=== PATIENT | female | born 1955 | race Caucasian/White ===

== ENCOUNTER 2017-06-27 08:25 | Outpatient (RCR) | payer BC ==
[2017-04-03 08:38] VITALS: BP 140/88
[2017-04-10 08:21] LABS: PLATELET COUNT, AUTOMATED 207 K/uL (150-450)
[2017-04-10 15:59] VITALS: BP 152/91
[2017-04-17 08:51] LABS: PLATELET COUNT, AUTOMATED 300 K/uL (150-450)
--- NOTE | 2017-04-17 10:00 | ONC Progress Note - NP.Halsey ---
Patient History Date of Service Apr 17, 2017 Reason For Visit/HPI Patient is seen in the clinic today to discuss treatment with Zometa infusion given every month for her newly diagnosed A light chain multiple myeloma. Patient is started on Velcade and oral chemotherapy given weekly. She is tolerating treatment without difficulty. 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 She has recently followed with her dentist and had 2 teeth extracted approximately 2 weeks ago. She will follow with him in one week for review. She then will follow with Dr. Guadarrama next week. Patient would like to hold off on Zometa infusion until the of the year because of her busy schedule with the holidays. She will discuss this with Dr. Guadarrama. I did visit with her regarding side effects which could include mild flulike symptoms, a very low risk of osteonecrosis of the jaw, watching your kidney function and dose reducing regarding her function, monthly schedule. We also discussed the indication of continuing with calcium and vitamin D supplementation. Patient is planning to have [facility] labs drawn prior to following with her primary care provider and will have a vitamin D level drawn at that time. Psychosocial History Social History The patient is , and she is here with her today. She has two children. She does have a history of smoking, but she quit years ago. She drinks only occasionally. There is no history of illicit drug use. Smoking History: No Smoking Status: Former Smoker Medications and Allergies Active Scripts Dexamethasone 4 Mg Tab (DEXAMETHASONE 4 MG TAB) 4 Mg Tab, 20 MG PO weekly for 1 Day, #30 TAB 3 Refills Prov:VALERIE AYON MD 04/10/17 Acyclovir (ACYCLOVIR) 400 Mg Tablet, 400 MG PO BID, #60 TAB 5 Refills Prov:KINGSLEY WIN SSN/SSBN WEAPONS EQUIPMENT OPERATOR-BC, ONC 03/13/17 Docusate Sodium (COLACE) 100 Mg Capsule, 1 CAP PO BID, #30 CAP 0 Refills TAKE WITH A FULL GLASS OF WATER Prov:JANET CERON MD 03/09/17 Oxycodone Hcl/Acetaminophen (OXYCODONE-ACETAMINOPHEN 5-325) 1 Each Tablet, 1 TAB PO Q4H Y for PAIN, #10 TAB 0 Refills Prov:JANET CERON MD 03/09/17 Reported Medications Diphenhydramine Hcl (BENADRYL) 25 Mg Capsule, 50 MG PO for Sleep, CAPSULE 03/06/17 Ca Carbonate/Mag/Vitamin D3 (CORAL CALCIUM 1,500 MG CAP) 1 Each Capsule, 1 EACH PO QDAY, CAPSULE 05/31/16 [place]-3 Fatty Acids/Fish Oil (OMEGA 3 FISH OIL SOFTGEL) 1 Each Capsule.dr, 1 EACH PO QDAY 01/05/16 Cholecalciferol (Vitamin D3) (VITAMIN D) 1,000 Unit Capsule, 2000 MG PO DAILY, CAPSULE 01/05/16 Multivitamin With Minerals (MULTIPLE VITAMIN) 1 Each Tablet, 1 EACH PO DAILY, TAB 01/05/16 Aspirin (ASPIR 81) 81 Mg Tablet.dr, 81 MG PO QDAY, TAB 01/05/16 Allergies: Coded Allergies: bacitracin (Verified Adverse Reaction, Mild, RASH, 07/04/16) neomycin (Verified Adverse Reaction, Mild, RASH, 07/04/16) polymyxin B (Verified Adverse Reaction, Mild, RASH, 07/04/16) Review of System/Physical Exam Review of Systems All Systems Reviewed/Normal: Yes, Except as Noted Constitutional: Positive for Appetite/Weight Change (weight gain), Positive for Other (patient has a few sleepless nights post taking weekly Decadron and may discuss decreasing the dose with Dr. Guadarrama next week) Hematologic: Positive for Fatigue Physical Exam Vital Signs Temperature: 97.0 Pulse: 94 BP Systolic: 152 BP Diastolic: 91 Respiratory Rate: 16 O2 SAT: 95 O2 Delivery: Height (inches) 65.50 Weight lb: 207 Weight oz: Weight Kg (Constantino): Pain: 0 ECOG Score: 0 General: Stable, Well Developed, Well Nourished Psychiatric: Mood appears normal, Affect appears normal Other Exam was deferred today and time was spent reviewing education regarding Zometa infusion and plan of care. Diagnostic Studies Diagnostic Studies Laboratory Laboratory Tests 04/17/17 08:45 Laboratory Tests 04/17/17 08:45: White Blood Count 5.7, Red Blood Count 4.73, Hemoglobin 14.0, Hematocrit 40.4, Mean Corpuscular Volume 85.6, Mean Corpuscular Hemoglobin 29.5, Mean Corpuscular Hemoglobin Concent 34.5, Red Cell Distribution Width 14.7, Platelet Count 300, Mean Platelet Volume 7.3, Neutrophils (%) (Auto) 49.4, Lymphocytes (% ) (Auto) 34.3, Monocytes (%) (Auto) 13.7, Eosinophils (%) (Auto) 1.7, Basophils (%) (Auto) 0.9, Nucleated RBC Relative Count (auto) 0.0, Neutrophils # (Auto) 2.8, Lymphocytes # (Auto) 1.9, Monocytes # (Auto) 0.8, Eosinophils # (Auto) 0.1 , Basophils # (Auto) 0.1, Nucleated RBC Absolute Count (auto) 0.00, Sodium Level 138, Potassium Level 3.6, Chloride Level 101, Carbon Dioxide Level 27, Blood Urea Nitrogen 10, Creatinine 0.70, Glomerular Filtration Rate Calc > 60.0 , Random Glucose 62, Uric Acid 3.4, Calcium Level 9.8, Phosphorus Level 3.6, Magnesium Level 1.8, Total Bilirubin 0.8, Aspartate Amino Transf (AST/SGOT) 28, Alanine Aminotransferase (ALT/SGPT) 37, Alkaline Phosphatase 119, Lactate Dehydrogenase 512, Total Protein 7.9, Albumin 4.2 Assessment and Plan Assessment & Plan Patient is seen today for her Zometa education prior to starting treatment. Patient would like to hold Zometa until May. She currently is receiving oral Revlimid and weekly Velcade for her newly diagnosed multiple myeloma. Patient is scheduled follow with Dr. Guadarrama next week. Multiple myeloma panel was drawn today and should be available at that time. Patient has been on medication approximately one month. No exam was completed today. Labs were reviewed with patient. I personally spent a total of 15 minutes. Of that 15 minutes was counseling/ coordination of patient's care. See my note above for details. KINGSLEY WIN SSN/SSBN WEAPONS EQUIPMENT OPERATOR-BC, ONC Apr 17, 2017 10:00
[2017-04-17 12:40] VITALS: BP 130/90
[2017-04-24 08:35] VITALS: BP 132/88
[2017-04-24 08:40] LABS: PLATELET COUNT, AUTOMATED 224 K/uL (150-450)
--- NOTE | 2017-04-27 04:35 | ONCOLOGY FOLLOW UP NOTE ---
EVENT DATE: April 24, 2017 CHIEF COMPLAINT/REASON FOR VISIT Ms. Mayers is a pleasant 61-year-old female with multiple myeloma with bone lesions here for follow up. HISTORY OF PRESENT ILLNESS Cristobal returns. She is currently near the end of her first cycle of Velcade/ Revlimid/dex. She has had some issues with subcutaneous dex but would like to continue it. We could switch to IV dex if need be. She has some mild fatigue , but in general no major side effects. Her labs look quite well. She is ready to continue. It is too soon to assess response, and this is more of a toxicity check today. 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 The pain in the left elbow led to an x-ray revealing a lytic lesion in the distal left humerus. A subsequent MRI revealed that this lesion replaced the marrow and went through the cortex. Biopsy in [place] was consistent with a plasma cytoma. She subsequently underwent a PET/CT scan in early 2016. There was no evidence of other metastatic disease. There was a probable benign endochondroma in the right distal femoral metaphysis that is being watched. She subsequently has been diagnosed with relapse and multiple myeloma. Her light chains increased significantly up to 45. This was a rapid change. Her bone marrow had 20% plasma cells in February 2017, prior to initiation of therapy with VRD. PET/CT in the fall of 2016 showed at least five areas concerning for relapse. She has bone predominant disease. SOCIAL HISTORY Patient is and has presented with her . Former smoker with a 20 pack-year history of smoking, quitting approximately 20 years ago. Occasional alcohol use. REVIEW OF SYSTEMS CONSTITUTIONAL: No fevers, chills. Mild fatigue. HEENT: No headache, vision changes. CARDIOVASCULAR: No chest pain, dyspnea on exertion or edema. RESPIRATORY: No shortness of breath, wheeze, cough. GI: No nausea, vomiting, diarrhea, constipatino. : No dysuria or hematuria. MUSCULOSKELETAL: No weakness or joint pain. PSYCHIATRIC: No anxiety or depression. 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 There has been no new pain to suggest ongoing damage. Remainder of 14-point review of systems otherwise negative. PHYSICAL EXAMINATION VITAL SIGNS: Blood pressure 152/91, pulse 74, respiratory rate 16, temperature 97.0 Fahrenheit. Oxygen saturation 95% on room air. Weight 95.9 kg. Pain 0/ 10. Fatigue 3/10. GENERAL: Stable condition, resting comfortably in the chair. HEENT: Normocephalic, atraumatic. CARDIOVASCULAR: Regular rate an rhythm. LUNGS: Clear. ABDOMEN: Soft. EXTREMITIES: No clubbing, cyanosis or edema. Remainder of physical exam unremarkable. IMPRESSION/PLAN Cristobal is a very pleasant female with the followin. Multiple myeloma with bone lesions. She is tolerating VRD well. We had an extensive time today discussing side effects, many questions, as well as discussion of the disease in great detail today, over 25 minutes spent in counseling and coordination of care, answered all of her questions. She is ready to proceed. Will see her with the next cycle as well. Billing: Return visit level 5. Total time 45 minutes, counseling time 25 minutes. IRIS
--- NOTE | 2017-04-27 15:34 | Oncology Note ---
Phone call received from Fabi at [facility] at [phone]. She reports that patient is doing well after having several teeth extracted and is released from their clinic. Patient is okay to start IV Zometa as part of her treatment plan for her multiple myeloma. KINGSLEY WIN MULTIMEDIA ENGINEER-BC, ONC Apr 27, 2017 15:34
--- NOTE | 2017-04-27 19:44 | [facility] ONCOLOGY NOTE ---
DATE OF SERVICE: April 24, 2017 CHIEF COMPLAINT/REASON FOR VISIT Ms. Mayers is a pleasant 61-year-old female with multiple myeloma, here during cycle two of Velcade, Revlimid, dexamethasone. HISTORY OF PRESENT ILLNESS Ms. Mayers returns. She is tolerating her first cycles of VRD very well. She has already had an over 50% improvement in her kappa light chains, which is significantly ahead of schedule. Overall she is tolerating therapy well as well. No significant neuropathy. She does have some discoloration of the skin where she gets the Velcade injections, and we discussed switching to IV. She would like to continue it subcu at this time. Otherwise she feels well. 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 The pain in the left elbow led to an x-ray revealing a lytic lesion in the distal left humerus. A subsequent MRI revealed that this lesion replaced the marrow and went through the cortex. Biopsy in [place] was consistent with a plasma cytoma. She subsequently underwent a PET/CT scan in early 2016. There was no evidence of other metastatic disease. There was a probable benign endochondroma in the right distal femoral metaphysis that is being watched. She subsequently has been diagnosed with relapse and multiple myeloma. Her light chains increased significantly up to 45. This was a rapid change. Her bone marrow had 20% plasma cells in February 2017, prior to initiation of therapy with VRD. PET/CT in the fall of 2016 showed at least five areas concerning for relapse. She has bone predominant disease. PAST MEDICAL HISTORY 1. Multiple myeloma. 2. Status post left humerus ORIF. 3. Status post hysterectomy. 4. Status post back surgery. SOCIAL HISTORY Patient is and has presented with her . Former smoker with a 20 pack-year history of smoking, quitting approximately 20 years ago. Occasional alcohol use. FAMILY HISTORY Remarkable for a stroke in the brother, but no cancer in the family. REVIEW OF SYSTEMS CONSTITUTIONAL: No fevers, chills. HEENT: No headache, vision changes CARDIOVASCULAR: No chest pain, dyspnea on exertion or edema. RESPIRATORY: No shortness of breath, wheeze, cough. GASTROINTESTINAL: No nausea, vomiting, diarrhea or constipation. GENITOURINARY: No dysuria or hematuria. NEUROLOGIC: She does have some numbness at times in the left leg, believed to be related to sciatica. Greatly preceded her diagnosis, no worsening with treatment. SKIN: No concerning lesions or rashes. She does get some hyperpigmentation in the areas where she gets the Velcade shots, but this is mild and tolerable to the patient. PSYCHIATRIC: No anxiety or depression. HEMATOLOGIC: No bleeding, bruising. IMMUNOLOGIC: No issues with infection. The remainder of the 14-point review of systems is otherwise negative. PHYSICAL EXAMINATION Reviewed in the Chemotherapy Unit. ECOG performance status of 0-1 on treatment. HEENT: Normocephalic, atraumatic. CARDIOVASCULAR: Regular rate and rhythm. LUNGS: Clear. EXTREMITIES: No clubbing, cyanosis or edema. SKIN: The patient does have some round, flat patches from where she was getting the injections. These may fade with time, but may not. The remainder of the physical exam is otherwise unremarkable. LABS Reviewed. She is clearly responding with already having a 50% improvement in her light chains with VRD. IMPRESSION AND PLAN Ms. Mayers is a very pleasant 61-year-old female with multiple myeloma already with partial response to Velcade, Revlimid and dexamethasone. We reviewed her treatment plan in great detail again today. She is tolerating it well with no major side effects. Ready to move forward with therapy. She is currently on cycle two, will see one of our providers every cycle. I answered all of her questions today. Billing: Return visit level 4. Total time 30 minutes, counseling time 20. MTDD
[2017-05-01 08:18] VITALS: BP 155/85
[2017-05-08 08:27] VITALS: BP 125/88
[2017-05-08 08:28] LABS: PLATELET COUNT, AUTOMATED 227 K/uL (150-450)
--- NOTE | 2017-05-14 09:58 | ONCOLOGY FOLLOW UP NOTE ---
EVENT DATE: April 07, 2017 CHIEF COMPLAINT/REASON FOR VISIT Ms. Mayers is a pleasant 61-year-old female with multiple myeloma with bone lesions here for followup. HISTORY OF PRESENT ILLNESS Cristobal returns. She is currently near the end of her first cycle of Velcade, Revlimid, dex. She has had some issues with subcutaneous dex, but would like to continue it. We could switch to IV dex if need be. She has some mild fatigue, but in general no major side effects. Her labs look quite well. She is ready to continue. It is too soon to assess response, and this is more of a toxicity check today. 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 The pain in the left elbow led to an x-ray revealing a lytic lesion in the distal left humerus. A subsequent MRI revealed that this lesion replaced the marrow and went through the cortex. Biopsy in [place] was consistent with a plasma cytoma. She subsequently underwent a PET/CT scan in early 2016. There was no evidence of other metastatic disease. There was a probable benign endochondroma in the right distal femoral metaphysis that is being watched. She subsequently has been diagnosed with relapse and multiple myeloma. Her light chains increased significantly up to 45. This was a rapid change. Her bone marrow had 20% plasma cells in February 2017, prior to initiation of therapy with VRD. PET/CT in the fall of 2016 showed at least five areas concerning for relapse. She has bone predominant disease. PAST MEDICAL HISTORY 1. Multiple myeloma. 2. Status post left humerus ORIF. 3. Status post hysterectomy. 4. Status post back surgery. SOCIAL HISTORY Patient is and has presented with her . Former smoker with a 20 pack-year history of smoking, quitting approximately 20 years ago. Occasional alcohol use. REVIEW OF SYSTEMS CONSTITUTIONAL: No fevers, chills. Mild fatigue. HEENT: No headache or vision changes. CARDIOVASCULAR: No chest pain, dyspnea on exertion or edema. RESPIRATORY: No shortness of breath, wheeze, cough. GASTROINTESTINAL: No nausea, vomiting, diarrhea or constipation. GENITOURINARY: No dysuria or hematuria. MUSCULOSKELETAL: No weakness or joint pain. PSYCHIATRIC: No anxiety or depression. MUSCULOSKELETAL: Some pain from the positive cytomas, but no new pain to suggest ongoing damage. The remainder of the 14-point review of systems is otherwise negative. PHYSICAL EXAMINATION VITAL SIGNS: Blood pressure 152/91, pulse 74, respiratory rate 16, temperature 97.0 Fahrenheit. Oxygen saturation 95% on room air. Weight 95.9 kg. Pain 0/10 , fatigue 3/10. GENERAL: In stable condition, resting comfortably in the chair. HEENT: Normocephalic, atraumatic. CARDIOVASCULAR: Regular rate and rhythm. LUNGS: Clear. ABDOMEN: Soft. EXTREMITIES: No clubbing, cyanosis or edema. The remainder of the physical exam is unremarkable. IMPRESSION AND PLAN Cristobal is a very pleasant female with the following: Multiple myeloma with bone lesions. She is tolerating VRD well. We had an extensive time today discussing side effects. Many questions, as well as discussion of the disease in great detail today. Over 25 minutes spent in counseling and coordination of care. I answered all of her questions. She is ready to proceed. We will see her with the next cycle as well. Billing: Return visit level 5. Total time 45 minutes, counseling time 25. MTDD
[2017-05-16 08:30] VITALS: BP 134/66
[2017-05-16 08:43] LABS: PLATELET COUNT, AUTOMATED 286 K/uL (150-450)
[2017-05-23 08:16] VITALS: BP 145/75
[2017-05-23 08:40] LABS: PLATELET COUNT, AUTOMATED 226 K/uL (150-450)
[2017-05-23] MEDS: NS(*) 0.9% 100 ML BAG 100 ML IVPB PRN (09:32)
[2017-05-30 08:39] VITALS: BP 142/74
[2017-06-06 08:18] VITALS: BP 136/78
[2017-06-06 08:30] LABS: PLATELET COUNT, AUTOMATED 209 K/uL (150-450)
[2017-06-12 09:01] VITALS: BP 143/84
[2017-06-13 08:44] VITALS: BP 130/84
[2017-06-13 08:48] LABS: PLATELET COUNT, AUTOMATED 301 K/uL (150-450)
--- NOTE | 2017-06-13 17:02 | ONCOLOGY FOLLOW UP NOTE ---
EVENT DATE: June 13, 2017 CHIEF COMPLAINT/REASON FOR VISIT Mrs. Mayers is a pleasant 61-year-old female with multiple myeloma, here prior to cycle four of Velcade, Revlimid and dexamethasone. HISTORY OF PRESENT ILLNESS Mrs. Mayers returns. She tolerating VRD very well. She has had nearly a very good partial response after two full cycles of therapy based on her early cycle labs. We have labs pending again tomorrow on cycle four day one. No significant neuropathy at all. She does get some discoloration of the skin with the Velcade subcu injection so we switched to IV. However, after further consideration with neuropathy she chose to continue it in the subcutaneous route. Otherwise she feels very well. We had an extensive meeting today to discuss autologous stem cell transplant and other considerations. I do recommend transplant. Other options include maintenance therapy versus active surveillance. I described the data showing benefit with continued therapy including transplant. 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 The pain in the left elbow led to an x-ray revealing this solitary lytic lesion in the distal left humerus. Biopsy in [place] was consistent with a plasma cytoma and this was treated. She subsequently underwent a PET/CT in early 2016. There was no evidence of metastatic disease at that time. There was a probable benign finding in the right femur that was watched. Subsequently she was diagnosed with relapse and her light chains increased up to 45. She had 20% plasma cells in the bone marrow and we initiated up front therapy with VRD. PET scan at the time of this diagnosis and fall 2016 showed five areas concerning for relapse. She has bone prominent disease with no other major CRAB symptoms. Treated with VRD. She had greater than a partial response after two cycles, which was our initial goal. PAST MEDICAL HISTORY 1. Multiple myeloma. 2. Status post left humerus ORIF. 3. Status post hysterectomy. 4. Status post back surgery. SOCIAL HISTORY Patient is and has presented with her . Former smoker with a 20- pack year history of smoking, quitting approximately 20 years ago. Occasional alcohol use. FAMILY HISTORY Remarkable for a stroke in her brother, but no cancers in the family. REVIEW OF SYSTEMS CONSTITUTIONAL: No fevers, chills. HEENT: No headache or vision changes. CARDIOVASCULAR: No chest pain, dyspnea on exertion or edema. RESPIRATORY: No shortness of breath, wheeze, cough. GASTROINTESTINAL: No nausea, vomiting. GENITOURINARY: No dysuria or hematuria. MUSCULOSKELETAL: No weakness or joint pain. PSYCHIATRIC: No anxiety or depression. NEUROLOGIC: No concerning numbness. She does have a prior history of sciatica in her left leg. This is unchanged. HEMATOLOGIC: No bruising or bleeding. IMMUNOLOGIC: No issues with infection. The remainder of the 14-point review of systems is otherwise negative. PHYSICAL EXAMINATION VITAL SIGNS: Blood pressure 143/84, pulse 85, respiratory rate 16, temperature 97.2 Fahrenheit, oxygen saturation 90% on room air. Weight 94.5 kg. Pain 0/10 , fatigue 4/10. GENERAL: In stable condition, resting comfortably in the chair. HEENT: Normocephalic, atraumatic. CARDIOVASCULAR: Regular rate and rhythm. LUNGS: Clear to auscultation bilaterally. ABDOMEN: Soft, nontender. EXTREMITIES: No clubbing, cyanosis or edema. Remainder of full physical exam deferred today to amount of time spent in counseling and coordination of care. IMPRESSION AND PLAN Mrs. Mayers is a pleasant 61-year-old female with multiple myeloma already with a partial response after two cycles of Velcade, Revlimid and dexamethasone. We discussed her next steps in great detail today. I would recommend consolidation with autologous stem cell transplant after maximum response. I would like her to meet with one of my bone marrow transplant colleagues to discuss this in further detail. We discussed alternatives including maintenance therapy versus active surveillance and the pros and cons of each. After discussion they would like to proceed with autologous stem cell transplant, which I think is the best plan. I answered all of their many questions today, will continue to see with every cycle. Billing: Return visit level 5. Total time 45 minutes, counseling time 30. High risk, high complexity. MTDD
[2017-06-20 08:30] VITALS: BP 131/80
[2017-06-20] MEDS: NS(*) 0.9% 100 ML BAG 100 ML IVPB PRN (09:44)
[~2017-06-27] VITALS: Ht 166.4 cm; Wt 95.2 kg
[~2017-06-27 08:25] MED LIST: ACYC-50 PO; ASPI-1471 PO; BORTEZOMIB 3.5 MG INJS SC ONE; CA C PO; CALC500T6 PO; CHOL100058 PO; DEX4 PO; DEXTROSE 5%(*) 100 ML BAG 100 ML IVPB PRN; DIPH-740 PO; DOCU-416 PO; HYDR-317 PO; HYDR-4309 PO; LIDOCAINE/SOD BICARB 8.4% SYR ID PRN; MAGN200T6 PO; MULT-1335 PO; OMEG-36 PO; OXYC-373 PO; OXYC-865 PO; PNEUMOCOC VAC POLY 25MCG/0.5ML IM ONLY ONE; TRAM-627 PO; ZOLEDRONIC ACID 4 MG/5 ML VIAL 4 MG in NS(*) 0.9% 100 ML BAG 100 ML IVPB ONE
[2017-06-27] MEDS ORDERED: BORTEZOMIB 3.5 MG INJS SC ONE (09:40)
--- NOTE | 2017-06-27 12:41 | RADIOLOGY IMAGING REPORT ---
FAC[place] [facility] [place]IENT NAME: Cristobal Mayers : 1955 MR: [id number] V: [id number] EXAM DATE: ORDERING PHYSICIAN: KINGSLEY WIN TECHNOLOGIST: Location: [facility] Patient: Cristobal Mayers : 1955 Visit/Account:[id number] Date of Sevice: 06/27/2017 EXAMINATION: Unilateral lower extremity deep vein duplex Doppler ultrasound HISTORY: Pain with palpable 1 cm nodule behind the right knee. COMPARISON: 07/25/2016. FINDINGS: Grayscale compression, duplex and color Doppler interrogation of the right lower extremity deep veins from common femoral vein to proximal calf was performed. The greater saphenous vein in the ipsilater al proximal thigh was evaluated using similar technique. Right lower extremity: Common femoral vein: Negative. Femoral vein: Negative. Deep femoral vein: Negative. Popliteal vein: Negative. Visualized deep calf veins: Negative. Greater saphenous vein in the proximal thigh: Negative. Popliteal fossa: Popliteal cyst measuring 7 x 1.2 x 4.1 cm compared with 2.8 x 0.8 x 1.9 cm previousl y Waveforms: Normal respiratory phasicity. IMPRESSION: No evidence of deep venous thrombosis of the right lower extremity. Madsen cyst, measuring 7 x 1.2 x 4.1 cm, increased in size since previous exam. Report Dictated By: Yang Wiley MD at 06/27/2017 12:29 PM Report E-Signed By: Yang Wiley MD at 06/27/2017 12:36 PM WSN:[id number]
== END 2017-06-29 ==
LOC: ONC 08:25
PROVIDERS: ATTEND Internal Medicine Hematology
DX: C90.00 Multiple myeloma not having achieved remission (principal); Z87.891 Personal history of nicotine dependence; Z79.899 Other long term (current) drug therapy; R53.83 Other fatigue; Z79.82 Long term (current) use of aspirin; Z23 Encounter for immunization
CPT/HCPCS: 36415; 82232; 83615; 83735; 83883; 84100; 84550; 85025; 85027; 86334; 90471; 90732; 93971; 96365; 96401; 99212; J3489; J7050; J9041; 82040; 82247; 82310; 82374; 82435; 82565; 82785; 82947; 84075; 84132; 84155; 84295; 84450; 84460; 84520

== ENCOUNTER 2017-08-14 08:02 | Outpatient (RCR) | payer BC ==
[2016-08-23 09:21] VITALS: BP 140/78
--- NOTE | 2017-07-21 10:42 | RADIOLOGY IMAGING REPORT ---
[place] [facility] [place] NAME: Cristobal Mayers : 1955 MR: [id number] V: [id number] EXAM DATE: ORDERING PHYSICIAN: RADHIKA LLANOS TECHNOLOGIST: Location: [facility] [place] Patient: Cristobal Mayers : 1955 Visit/Account:[id number] Date of Sevice: 07/20/2017 CT CHEST W/O CONTRAST History: Multiple myeloma TECHNIQUE: Contiguous axial images were performed through the chest to the level of the adrenal gla nds. No IV contrast was administered. Coronal and sagittal reformatting was also performed. Dose Lowe ring Technique One of the following dose optimization techniques was utilized in the performance of this exam: Autom ated exposure control; adjustment of the mA and/or kV according to the patient's size; or use of an i terative reconstruction technique. Specific details can be referenced in the facility's radiology C T exam operational policy. COMPARISON STUDIES: PET/CT February 21, 2017. Lungs / Pleura: negative. Mediastinum/nodes: negative. Heart and vessels: negative. Musculoskeletal / Body wall: There are extensive multilevel spondylotic changes in the cervical spi ne. There is a small lucency with some sclerotic border involving the inferior right side of the C5 vertebral body similar to the prior study.. There is additional lucency along the anterior left side of the T1 vertebral body not definitively seen on the prior examination. There is a large lucency w ith a sclerotic border and destruction of the posterior wall of the T5 vertebral body present previou sly. There is an additional lucent lesion with a sclerotic border involving the left side of the T8 vertebral body which is increased in size when compared to the prior study. There is a lesion of mix ed density along the left side of the L2 vertebral body that was present previously. There is a lyti c lesion along the anterior aspect of the left 10th rib that was present on the prior study. There i s a lucent lesion with adjacent callus along the posterior aspect of the left eighth rib posteriorly likely related to a pathologic fracture. There also appear to be several other lucent lesions along the lateral aspect of the left eighth rib also present previously there is a lytic lesion involving t he head neck and visualized proximal shaft of the left humerus present previously. Incompletely imag ed are postsurgical changes in the distal left humerus Upper abdomen: Incompletely imaged is a 2.7 cm cyst posterior right lobe the liver. Also incomplet jacoby imaged is a cyst upper pole the right kidney IMPRESSION: There are multiple lucent lesions seen throughout the visualized bones as detailed above. Most of th peggy appear some are to the prior PET/CT from February 21, 2017. The lesion was quite borders left-side d T8 vertebral body has increased in size. Report Dictated By: Aiyana Oshea MD at 07/21/2017 10:15 AM Report E-Signed By: Aiyana Oshea MD at 07/21/2017 10:38 AM WSN:[id number]
[~2017-08-14 08:02] MED LIST changes: -BORTEZOMIB 3.5 MG INJS SC ONE; -DEXTROSE 5%(*) 100 ML BAG 100 ML IVPB PRN; +LENA25CA4 PO; -LIDOCAINE/SOD BICARB 8.4% SYR ID PRN; -PNEUMOCOC VAC POLY 25MCG/0.5ML IM ONLY ONE; -ZOLEDRONIC ACID 4 MG/5 ML VIAL 4 MG in NS(*) 0.9% 100 ML BAG 100 ML IVPB ONE; +ZOLP-360 PO; +[UNRECOGNIZED DRUG - CODE] IVP
[2017-09-12] MEDS ORDERED: DARA100V IV (15:50)
[2017-09-12] MEDS ORDERED: POMA4CAP PO (15:50)
[2017-09-26] MEDS ORDERED: DEX4 PO (20:09)
[2017-09-26] MEDS ORDERED: DIPH-740 PO (20:12)
== END 2017-10-17 ==
LOC: RAON 08:02
PROVIDERS: ATTEND Radiology Radiation Oncology
DX: Z51.0 Encounter for antineoplastic radiation therapy (principal); C90.30 Solitary plasmacytoma not having achieved remission; Z79.82 Long term (current) use of aspirin; Z79.899 Other long term (current) drug therapy; Z87.891 Personal history of nicotine dependence
CPT/HCPCS: 71250; 77280; 77290; 77295; 77300; 77334; 77336; 77412; 77417; 99212

== ENCOUNTER → 2017-09-12 | Outpatient (CLI) | payer BC ==
[~2017-09-12] MED LIST changes: +DARA100V IV; +POMA4CAP PO
== END ==
LOC: SPU 09:43
PROVIDERS: ATTEND Family Medicine
DX: E05.90 Thyrotoxicosis, unspecified without thyrotoxic crisis or storm (principal)
CPT/HCPCS: 36415; 84439; 84481; 86376; 86800

== ENCOUNTER → 2017-09-14 | Outpatient (CLI) | payer BC ==
--- NOTE | 2017-09-14 16:23 | RADIOLOGY IMAGING REPORT ---
FACILITY: [facility] - [place] PATIENT NAME: Cristobal Mayers : 1955 MR: [id number] V: [id number] EXAM DATE: ORDERING PHYSICIAN: RAJI FRAZIER TECHNOLOGIST: Location: [facility] [place] Patient: Cristobal Mayers : 1955 Visit/Account:[id number] Date of Sevice: 09/14/2017 Thyroid ultrasound. HISTORY: Hyperthyroidism, multiple myeloma. COMPARISON: None. The right thyroid lobe measures 5.2 cm in length. No right thyroid nodules are identified. The thyroid isthmus measures 3 mm in thickness. The left thyroid lobe measures 4.9 cm in length. A 7 mm slightly heterogeneous nodule is present in t he midportion of the left thyroid lobe. A 1.3 cm oval-shaped structure consistent with a lymph node i s present along the medial aspect of the lower pole of left thyroid lobe. IMPRESSION: 7 mm left thyroid nodule. Otherwise negative thyroid gland. Report Dictated By: Rolan Youngblood MD at 09/14/2017 4:18 PM Report E-Signed By: Rolan Youngblood MD at 09/14/2017 4:20 PM WSN:[id number]
== END ==
LOC: US 00:58
PROVIDERS: ATTEND Family Medicine
DX: E05.20 Thyrotoxicosis with toxic multinodular goiter without thyrotoxic crisis or storm (principal)
CPT/HCPCS: 76536

== ENCOUNTER 2017-09-25 09:22 | Outpatient (RCR) | payer BC ==
[2017-07-03 09:13] VITALS: BP 143/84
[2017-07-03 10:20] LABS: PLATELET COUNT, AUTOMATED 210 K/uL (150-450)
--- NOTE | 2017-07-04 18:53 | ONCOLOGY FOLLOW UP NOTE ---
EVENT DATE: July 03, 2017 CHIEF COMPLAINT/REASON FOR VISIT Mrs. Mayers is a very pleasant 61-year-old female with multiple myeloma, here during cycle four of Velcade, Revlimid and dexamethasone. HISTORY OF PRESENT ILLNESS Mrs. Mayers returns. She is tolerating VRD extremely well. She has a very good partial response at this point and is reaching a plateau. No significant neuropathy at all. She had difficulties with the subcutaneous Velcade and we considered switching to IV. However, she would like to continue with the subcutaneous. She prefers to get it in the arm due to discoloration on her abdomen. She recently met with Dr. Jorge Powell at the [facility], and we both recommend autologous stem cell transplant. She thinks for timing purposes she would like to get the transplant after she returns from a wedding in October of 2017. As a result, we weill continue her full treatment with VRD until August to allow for a month break before stem cell harvest in September and transplant in October. I answered all of her many questions today, over 45 minutes. 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 This led to an x-ray revealing a solitary lytic lesion in the distal left humerus. Biopsy was done in [place] and was treated with radiation. She subsequently underwent a PET/CT in early 2016, showing no evidence of metastatic disease at the time. Her light chains increased up to 45 and she was subsequently discharged with relapse. She had 20% plasma cells in the bone marrow and we initiated therapy with VRD. There were five areas concerning for relapse in a PET scan in the fall of 2016. She has predominant bone disease with no other major CRAB symptoms. We started Zometa monthly given her bone prominent disease, and she has had two doses thus far. We are now able to switch to every three months. She had greater than a partial response after two cycles, our initial goal. PAST MEDICAL HISTORY 1. Multiple myeloma. 2. Status post left humerus ORIF. 3. Status post hysterectomy. 4. Status post back surgery. SOCIAL HISTORY Patient is and has presented with her and daughter. Former smoker with a 20 pack-year history of smoking, quitting 20 years ago. Occasional alcohol use. FAMILY HISTORY Remarkable for a stroke in her brother, but no cancers in the family. REVIEW OF SYSTEMS CONSTITUTIONAL: No fevers, chills, significant weight change. HEENT: No headache or vision changes. CARDIOVASCULAR: No chest pain, dyspnea on exertion or edema. RESPIRATORY: No shortness of breath, wheeze, cough. GASTROINTESTINAL: No nausea, vomiting. GENITOURINARY: No dysuria or hematuria. MUSCULOSKELETAL: No weakness, joint pain, bone pain. PSYCHIATRIC: No anxiety or depression. NEUROLOGIC: No concerning numbness. HEMATOLOGIC: No bruising or bleeding. IMMUNOLOGIC: No issues of infection. The remainder of the 14-point review of systems is otherwise negative. PHYSICAL EXAMINATION VITAL SIGNS: Blood pressure 143/84, pulse 80, respiratory rate 16, temperature 97.1 degrees Fahrenheit, oxygen saturation 93% on room air. Weight 94.9 kg and stable. Pain 0/10, fatigue 0/10. GENERAL: In stable condition, resting comfortably in the chair. HEENT: Normocephalic, atraumatic. CARDIOVASCULAR: Regular rate and rhythm. LUNGS: Clear. ABDOMEN: Soft, nontender. EXTREMITIES: No clubbing, cyanosis or edema. Remainder of full physical exam deferred today to amount of time spent in counseling and coordination of care. IMPRESSION AND PLAN Mrs. Mayers is a very pleasant 61-year-old female with the following: Multiple myeloma without significant high risk features. She had a partial response after two cycles with VRD and a very good partial response after three cycles. We recommend consolidation with autologous stem cell transplant after her maximum response. She is nearing that, but would like to get the transplant done in October after a family wedding. This is reasonable. We will continue full dose therapy until August before taking a break to allow stem cell collection in September, and the transplant hopefully in October. I answered all of their many questions today after the consultation with Dr. Patel. Billing: Return visit level 5. Total time 50minutes, counseling time 55. High risk, high complexity. MTDD
[2017-07-11 08:34] VITALS: BP 151/83
[2017-07-11 08:57] LABS: PLATELET COUNT, AUTOMATED 256 K/uL (150-450)
[2017-07-18 08:47] VITALS: BP 136/71
[2017-07-18] MEDS: LIDOCAINE/SOD BICARB 8.4% SYR ID PRN (09:36)
[2017-07-18] MEDS: NS(*) 0.9% 100 ML BAG 100 ML IVPB PRN (09:37)
--- NOTE | 2017-07-18 10:07 | ONC Progress Note - NP.Halsey ---
Patient History Date of Service Jul 18, 2017 Reason For Visit/HPI Patient is seen in the clinic today to discuss her insomnia. She was seen last week by Dr. Ayon and is tolerating V RD extremely well. He denies any neuropathy. She is reporting that she has discomfort in her right shoulder and questions if she can take ibuprofen because Tylenol does not help. She has discussed ibuprofen with her provider in [place] and was recommended to not use it. She does have Ultram at home and has not tried it. She reports that previously she was taken Benadryl 100 mg at night for sleep. She has no trouble going to sleep but frequently wakes up 2 hours later and is unable to go back to sleep. She will get up and sit in front of the TV and then follow sleep after a amount of time. She does feel that frequently she is thinking about activities that she needs to complete and feels like that is the cause of her insomnia. She does have increased insomnia on the day that she takes her steroid therapy and usually the following day. This does not happen every night but at least 2-3 nights in a week. It increases anytime she is traveling. She is planning on a trip to go see her grandson. She believes that she has tried Ambien many years ago and had good relief taking it only as needed. Like to try Ambien again. Problem List (1) INSOMNIA DUE TO MEDICAL CONDITION Oncology History Patient was initially diagnosed with solitary plasmacytoma with pain in the left elbow. This led to an x-ray revealing a solitary lytic lesion in the distal left humerus. Biopsy was done in [place] and was treated with radiation. She subsequently underwent a PET/CT in early 2016, showing no evidence of metastatic disease at the time. Her light chains increased up to 45 and she was subsequently discharged with relapse. She had 20% plasma cells in the bone marrow and we initiated therapy with VRD. There were five areas concerning for relapse in a PET scan in the fall of 2016. She has predominant bone disease with no other major CRAB symptoms. She started Zometa monthly x 2 months and will now switch to every three months. She is on Vitamin D daily. She will complete a transplant some time in November 2017. Psychosocial History Social History Patient is and has presented with her and daughter. Former smoker with a 20 pack-year history of smoking, quitting 20 years ago. Occasional alcohol use. Smoking History: No Smoking Status: Former Smoker Medications and Allergies Active Scripts Zolpidem Tartrate (ZOLPIDEM TARTRATE) 5 Mg Tablet, 1 TAB PO QHS, #30 TAB 1 Refill Prov:KINGSLEY WIN TECHNICAL MAINTENANCE SPECIALIST-BC, ONC 07/18/17 Dexamethasone 4 Mg Tab (DEXAMETHASONE 4 MG TAB) 4 Mg Tab, 20 MG PO weekly for 1 Day, #30 TAB 3 Refills Prov:VALERIE AYON MD 04/10/17 Acyclovir (ACYCLOVIR) 400 Mg Tablet, 400 MG PO BID, #60 TAB 5 Refills Prov:KINGSLEY WIN TECHNICAL MAINTENANCE SPECIALIST-BC, ONC 03/13/17 Docusate Sodium (COLACE) 100 Mg Capsule, 1 CAP PO BID, #30 CAP 0 Refills TAKE WITH A FULL GLASS OF WATER Prov:JANET CERON MD 03/09/17 Oxycodone Hcl/Acetaminophen (OXYCODONE-ACETAMINOPHEN 5-325) 1 Each Tablet, 1 TAB PO Q4H Y for PAIN, #10 TAB 0 Refills Prov:JANET CERON MD 03/09/17 Reported Medications Diphenhydramine Hcl (BENADRYL) 25 Mg Capsule, 50 MG PO for Sleep, CAPSULE 03/06/17 Ca Carbonate/Mag/Vitamin D3 (CORAL CALCIUM 1,500 MG CAP) 1 Each Capsule, 1 EACH PO QDAY, CAPSULE 05/31/16 [place]-3 Fatty Acids/Fish Oil (OMEGA 3 FISH OIL SOFTGEL) 1 Each Capsule.dr, 1 EACH PO QDAY 01/05/16 Cholecalciferol (Vitamin D3) (VITAMIN D) 1,000 Unit Capsule, 2000 MG PO DAILY, CAPSULE 01/05/16 Multivitamin With Minerals (MULTIPLE VITAMIN) 1 Each Tablet, 1 EACH PO DAILY, TAB 01/05/16 Aspirin (ASPIR 81) 81 Mg Tablet.dr, 81 MG PO QDAY, TAB 01/05/16 Allergies: Coded Allergies: bacitracin (Verified Adverse Reaction, Mild, RASH, 07/04/16) neomycin (Verified Adverse Reaction, Mild, RASH, 07/04/16) polymyxin B (Verified Adverse Reaction, Mild, RASH, 07/04/16) Review of System/Physical Exam Review of Systems All Systems Reviewed/Normal: Yes, Except as Noted Musculoskeletal: Positive for Muscle Pain, Positive for Bone Pain (noted in the right scapular area.) Psychiatric: Other (noted for insomnia.) Physical Exam Vital Signs Temperature: 99.5 Pulse: 65 BP Systolic: 136 BP Diastolic: 71 Respiratory Rate: 16 O2 SAT: 95 O2 Delivery: Height (inches) 65.50 Weight lb: 207 Weight oz: Weight Kg (Constantino): Pain: 0 ECOG Score: 0 General: Stable, Well Developed, Well Nourished, Not In Acute Distress, Other ( patient remains active and is doing water aerobics 3 times a week in the morning ) Extremities: Other (pain with palpation in the right scapular area. We'll look at CT scan with Dr. Snider.) Psychiatric: Mood appears normal, Affect appears normal Diagnostic Studies Diagnostic Studies Laboratory Laboratory Tests 07/18/17 08:43 Laboratory Tests 07/11/17 08:45: Red Blood Count 4.43, Mean Corpuscular Volume 89.0, Mean Corpuscular Hemoglobin 30.0, Mean Corpuscular Hemoglobin Concent 33.8, Red Cell Distribution Width 15.1 , Mean Platelet Volume 7.3, Monocytes (%) (Auto) 13.5, Eosinophils (%) (Auto) 2.3, Basophils (%) (Auto) 1.2, Nucleated RBC Relative Count (auto) 0.1, Monocytes # (Auto) 0.7, Eosinophils # (Auto) 0.1, Basophils # (Auto) 0.1, Nucleated RBC Absolute Count (auto) 0.00, Peripheral Blood Smear No, Uric Acid 2.9, Lactate Dehydrogenase 469, Protein Electrophoresis (T) 6.50, Albumin % (PEP ) 4.06, Vxlfn-2-Bdhzndqbm 0.30, Lqkng-5-Yemlycyzc 0.70, Beta Globulins 0.79, Szbh-0-Ylrnnnkognjwp 1.6, Gamma Globulins (%) 0.66, Immunoglobulin G 631, Immunoglobulin A 75, Immunoglobulin M 64, ROHITH & Serum PEP Interpretation See note, Serum Immunofixation Rohith done, Free Old [place] Light Chains, Quant 13.50, Free Lambda Light Chains, Quant 0.94, Free [place]/Lambda Light Chain Ratio 14.36 07/18/17 08:43: White Blood Count 3.6, Hemoglobin 13.5, Hematocrit 40.4, Platelet Count 221, Neutrophils (%) (Auto) 49.7, Lymphocytes (%) (Auto) 34.7, Neutrophils # (Auto) 1.8, Lymphocytes # (Auto) 1.3, Sodium Level 136, Potassium Level 3.7, Chloride Level 99, Carbon Dioxide Level 28, Blood Urea Nitrogen 12, Creatinine 0.70, Glomerular Filtration Rate Calc > 60.0, Random Glucose 82, Calcium Level 9.1, Total Bilirubin 0.5, Aspartate Amino Transf (AST/SGOT) 27, Alanine Aminotransferase (ALT/SGPT) 41, Alkaline Phosphatase 67, Total Protein 7.0, Albumin 4.0 Assessment and Plan Assessment & Plan Mrs. Mayers is a very pleasant 61-year-old female with the following: Multiple myeloma without significant high risk features. She had a partial response after two cycles with VRD and a very good partial response after three cycles. Dr. Guadarrama has recommended consolidation with autologous stem cell transplant after her maximum response. She is nearing that, but would like to get the transplant done in October after a family wedding in her birthday. This is reasonable. We will continue full dose therapy until August before taking a break to allow stem cell collection in September, and the transplant hopefully in October. History of insomnia. Patient reports that she is having more difficulty staying asleep several nights in a week. She has been taking Benadryl 100 mg at night and feels that this is no longer helping. She previously has tried Ambien and would like to try to again and will take it only as needed. Safety features were discussed with patient and she verbalized understanding. Pain in the right scapula. I will look at previous diagnostic studies with Dr. Snider today and reviewed to see if patient would benefit from further radiation therapy. Patient has been taking ibuprofen which was discouraged by her provider in [place]. She feels that Tylenol does not help. She does have Ultram at home and will try that. I personally spent a total of 20 minutes. Of that 20 minutes was counseling/ coordination of patient's care. See my note above for details. KINGSLEY WIN TECHNICAL MAINTENANCE SPECIALIST-BC, ONC Jul 18, 2017 10:07
[2017-07-25 08:32] VITALS: BP 141/77
[2017-08-01 09:42] LABS: PLATELET COUNT, AUTOMATED 212 K/uL (150-450)
[2017-08-07 09:21] VITALS: BP 144/89
[2017-08-08 08:44] VITALS: BP 128/81
[2017-08-08 08:48] LABS: PLATELET COUNT, AUTOMATED 262 K/uL (150-450)
--- NOTE | 2017-08-08 16:54 | ONCOLOGY FOLLOW UP NOTE ---
EVENT DATE: August 07, 2017 CHIEF COMPLAINT/REASON FOR VISIT Ms. Mayers is a very pleasant 61-year-old female with multiple myeloma, here immediately prior to cycle five of Velcade, Revlimid and dexamethasone. HISTORY OF PRESENT ILLNESS Ms. Mayers returns. She is tolerating VRD extremely well. She has a very good partial response at this point, but is reaching a plateau. Her kappa light chain increased very slightly, which could be lab error in June, and we have a repeat level pending this week. She continues with the subcutaneous Velcade. She has prepared for autologous stem cell transplant and is hoping to pursue this in October. We will reach out to Dr. Patel to let him know this. If her kappa light chain continues to increase and it is not lab error, we will consider switching to daratumumab, Velcade, dex for a time prior to proceeding with transplant. Since her last visit she had continuing issues with pain, although no new pain. She had followup with Radiation Oncology and a decision was made to begin radiation to the eighth rib lesion. I stressed that there is difference in her pain. I completely agree with the plan to try palliative radiation to this existing area that was continuing to cause pain. She had received radiation therapy to the most pressing pain concern earlier in her treatment, but now that that has improved, I believe the eighth rib is more pronounced and noticeable. 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 This led to an x-ray revealing a solitary lytic lesion in the distal left humerus. Biopsy was done in [place] and was treated with radiation. She subsequently underwent a PET/CT in early 2016, showing no evidence of metastatic disease at the time. Her light chains increased up to 45 and she was subsequently discharged with relapse. She had 20% plasma cells in the bone marrow and we initiated therapy with VRD. There were five areas concerning for relapse in a PET scan in the fall of 2017. She has predominant bone disease with no other major CRAB symptoms. We started Zometa monthly given her bone prominent disease, and she has had two doses thus far. We are now able to switch to every three months. She had greater than a partial response after two cycles, our initial goal. PAST MEDICAL HISTORY 1. Multiple myeloma. 2. Status post left humerus ORIF. 3. Status post hysterectomy. 4. Status post back surgery. SOCIAL HISTORY Patient is and has presented with her and daughter. Former smoker with a 20 pack-year history of smoking, quitting 20 years ago. Occasional alcohol use. FAMILY HISTORY Remarkable for a stroke in her brother, but no cancers in the family. REVIEW OF SYSTEMS CONSTITUTIONAL: No fevers, chills, significant weight change. HEENT: No headache or vision changes. CARDIOVASCULAR: No chest pain, dyspnea on exertion or edema. RESPIRATORY: No shortness of breath, wheeze, cough. GASTROINTESTINAL: No nausea, vomiting. GENITOURINARY: No dysuria or hematuria. MUSCULOSKELETAL: No weakness, joint pain, bone pain. PSYCHIATRIC: No anxiety or depression. NEUROLOGIC: No concerning numbness. HEMATOLOGIC: No bruising or bleeding. IMMUNOLOGIC: No issues of infection. The remainder of the 14-point review of systems is otherwise negative. PHYSICAL EXAMINATION VITAL SIGNS: Blood pressure 144/89, pulse 80, respiratory rate 16, temperature 97 Fahrenheit, oxygen saturation 96% on room air. Weight 93.5 kg. Pain 0/10, fatigue 0/10. GENERAL: In stable condition, resting comfortably in the chair. HEENT: Normocephalic, atraumatic. ABDOMEN: Soft, nontender, nondistended. No organomegaly or masses. EXTREMITIES: No clubbing, cyanosis or edema. MUSCULOSKELETAL: Some pain in the back near the eighth rib and shoulder blade, improving since starting radiation. This has been present since the beginning of her treatment, but may be more noticeable now as we have treated other areas with radiation. Remainder of full physical exam otherwise unremarkable. IMPRESSION AND PLAN Ms. Mayers is a very pleasant 61-year-old female with the following: Multiple myeloma without significant high risk genetic features. She had a partial response after two cycles with VRD and a very good partial response after three cycles. She is now beginning her sixth cycle this month. We recommend consolidation with autologous stem cell transplant after her maximum response. If her free light chain increases significantly we will need to consider alternative therapy before transplant. If she plateaus I will discuss with Dr. Patel whether or not we want to pursue transplant as planned in October or transition down the therapy to increase her response. I answered all of her many questions today. Billing: Return visit level 5. Total time 45 minutes, counseling time 35. MTDD
[2017-08-15 08:19] VITALS: BP 129/79
[2017-08-15] MEDS: LIDOCAINE/SOD BICARB 8.4% SYR ID PRN (08:26)
[2017-08-15] MEDS: NS(*) 0.9% 100 ML BAG 100 ML IVPB PRN (08:27)
[2017-08-15 08:36] LABS: PLATELET COUNT, AUTOMATED 203 K/uL (150-450)
[2017-08-29 08:47] LABS: PLATELET COUNT, AUTOMATED 211 K/uL (150-450)
[2017-08-29 08:49] VITALS: BP 112/73
[2017-09-04 08:20] VITALS: BP 138/89
[2017-09-05 08:25] VITALS: BP 121/90
--- NOTE | 2017-09-05 17:01 | ONCOLOGY FOLLOW UP NOTE ---
EVENT DATE: September 04, 2017 CHIEF COMPLAINT/REASON FOR VISIT Ms. Mayers is a pleasant 61-year-old female with multiple myeloma, here after six cycles of Velcade, Revlimid, dexamethasone. HISTORY OF PRESENT ILLNESS Cristobal returns. She is tolerating VRD extremely well. She has a very good partial response, but reached a plateau in May and has had three small consecutive increases since that time. Her kappa light chain has gone from 11 to 17 over that time. She has a wedding in early October which is a priority for her. 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 Plan to transition to daratumumab, pomalidomide, dexamethasone, as she is dual- refractory currently. She completed palliative radiation to the eighth rib lesion. No other new issues. An extensive amount of time spent answering her questions today. 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 This led to an x-ray revealing a solitary lytic lesion in the distal left humerus. Biopsy was done in [place] and was treated with radiation. She subsequently underwent a PET/CT in early 2016, showing no evidence of metastatic disease at the time. Her light chains increased up to 45 and she was subsequently discharged with relapse. She had 20% plasma cells in the bone marrow and we initiated therapy with VRD. There were five areas concerning for relapse in a PET scan in the fall of 2016. She has predominant bone disease with no other major CRAB symptoms. We started Zometa monthly given her bone prominent disease, and she has had two doses thus far. We are now able to switch to every three months. She had greater than a partial response after two cycles, our initial goal. Slow dual-refractory resistant disease concluded in August 2017. Plan to transition to daratumumab, pomalidomide, dexamethasone, which means transplant will be delayed. PAST MEDICAL HISTORY 1. Multiple myeloma. 2. Status post left humerus ORIF. 3. Status post hysterectomy. 4. Status post back surgery. SOCIAL HISTORY Patient is and has presented with her and daughter. Former smoker with a 20 pack-year history of smoking, quitting 20 years ago. Occasional alcohol use. FAMILY HISTORY Remarkable for a stroke in her brother, but no cancers in the family. REVIEW OF SYSTEMS CONSTITUTIONAL: No fevers, chills, significant weight change. HEENT: No headache or vision changes. CARDIOVASCULAR: No chest pain, dyspnea on exertion or edema. RESPIRATORY: No shortness of breath, wheeze, cough. GASTROINTESTINAL: No nausea, vomiting. GENITOURINARY: No dysuria or hematuria. MUSCULOSKELETAL: No weakness, joint pain, bone pain. PSYCHIATRIC: No anxiety or depression. NEUROLOGIC: No concerning numbness. HEMATOLOGIC: No bruising or bleeding. IMMUNOLOGIC: No issues of infection. The remainder of the 14-point review of systems is otherwise negative. PHYSICAL EXAMINATION VITAL SIGNS: Blood pressure 138/89, pulse 82, respiratory rate 16, temperature 97.4 Fahrenheit, oxygen saturation 92% on room air. Weight 93.5 kg. Pain 3/10 , fatigue 3/10. GENERAL: In stable condition, resting comfortably in the chair. She is recently getting over a cold. NEUROLOGIC: No deficits. PSYCHIATRIC: Normal mood and affect. EXTREMITIES: No clubbing, cyanosis or edema. SKIN: No concerning findings. Remainder of full physical exam deferred today due to amount time spent in counseling and coordination of care. IMPRESSION AND PLAN Ms. Mayers is a very pleasant 61-year-old female with the following: Multiple myeloma without significant high risk genetic features. She had a very good partial response after two cycles of VRD and completed six cycles. Unfortunately she is having slow relapse while on therapy, meaning she has dual- refractory disease. Plan to utilize daratumumab, pomalidomide, dexamethasone. There are many therapy options available for her at this time, but I believe this is the best next step given the concurrent treatment with Velcade and Revlimid. I answered all of their many questions today. Billing: Return visit level 5. Total time 45 minutes, counseling time 25 minutes. High risk, high complexity. MTDD
[2017-09-12 09:43] VITALS: BP 140/70
[2017-09-12] MEDS: LIDOCAINE/SOD BICARB 8.4% SYR ID PRN (09:56)
[2017-09-12] MEDS: NS(*) 0.9% 100 ML BAG 100 ML IVPB PRN (09:57)
[2017-09-12 10:09] LABS: PLATELET COUNT, AUTOMATED 174 K/uL (150-450)
[2017-09-12 11:49] VITALS: BP 140/86
[2017-09-18 13:06] LABS: PLATELET COUNT, AUTOMATED 203 K/uL (150-450)
[~2017-09-25] VITALS: Ht 166.4 cm; Wt 94.2 kg
[~2017-09-25 09:22] MED LIST changes: +BORTEZOMIB 3.5 MG INJS SC ONE; +DEXTROSE 5%(*) 100 ML BAG 100 ML IVPB PRN; +ZOLEDRONIC ACID 4 MG/5 ML VIAL 4 MG in NS(*) 0.9% 100 ML BAG 100 ML IVPB ONE
[2017-09-26] VITALS (26 sets, daily range): BP systolic 132–168; BP diastolic 79–102
[2017-09-26] MEDS ORDERED: diphenhydrAMINE 25 MG CAP PO PRN (06:55)
[2017-09-26] MEDS ORDERED: FAMOTIDINE 10 MG/ML SDV IVP PRN (06:55)
[2017-09-26] MEDS ORDERED: MONTELUKAST SODIUM 10 MG TAB PO PRN (06:55)
[2017-09-26] MEDS ORDERED: ACETAMINOPHEN 325 MG TAB PO PRN (06:55)
[2017-09-26] MEDS ORDERED: NS 0.9% IVPB PRN (07:00)
[2017-09-26] MEDS ORDERED: DEXAMETHASONE SOD IVPB PRN (07:00)
[2017-09-26] MEDS: NS(*) 0.9% 500 ML BAG 500 ML IV PRN ×2 (07:15→09:23)
[2017-09-26 07:19] LABS: PLATELET COUNT, AUTOMATED 234 K/uL (150-450)
[2017-09-26] MEDS: LIDOCAINE/SOD BICARB 8.4% SYR ID PRN (07:19)
[2017-09-26] MEDS ORDERED: [UNRECOGNIZED DRUG - OTHER] IVPB ONE (08:15)
[2017-09-26] MEDS ORDERED: DARATUMUMAB IVPB ONE (08:15)
[2017-09-26] MEDS ORDERED: amLODIPine BESYL(*) 5 MG TAB PO ONE (11:05)
[2017-09-26] MEDS ORDERED: diphenhydrAMINE 50 MG/ML VIAL ONE (11:19)
[2017-09-26] MEDS ORDERED: HYDROCORTISONE 100 MG/2 ML ONE (11:24)
[2017-09-26] MEDS ORDERED: DEX4 PO (20:09)
[2017-09-26] MEDS ORDERED: DIPH-740 PO (20:12)
== END 2017-09-28 ==
LOC: SPU 09:22
PROVIDERS: ATTEND Internal Medicine
DX: Z51.11 Encounter for antineoplastic chemotherapy (principal); C90.00 Multiple myeloma not having achieved remission; Z87.891 Personal history of nicotine dependence; G47.00 Insomnia, unspecified; Z79.899 Other long term (current) drug therapy
CPT/HCPCS: 36415; 82232; 83615; 83735; 83883; 84100; 84550; 85025; 85027; 86334; 96365; 96367; 96375; 96401; 96413; 96415; 99212; J1100; J1200; J1720; J3489; J7030; J7040; J7050; J9041; J9145; Q0163; S0028; 82040; 82247; 82310; 82374; 82435; 82565; 82947; 84075; 84132; 84155; 84295; 84450; 84460; 84520

== ENCOUNTER 2017-09-26 18:07 | Observation (INO) | payer BC ==
[~2017-09-26] VITALS: Ht 170.2 cm; Wt 94.6 kg
[~2017-09-26 18:07] MED LIST changes: -BORTEZOMIB 3.5 MG INJS SC ONE; -DEXTROSE 5%(*) 100 ML BAG 100 ML IVPB PRN; -ZOLEDRONIC ACID 4 MG/5 ML VIAL 4 MG in NS(*) 0.9% 100 ML BAG 100 ML IVPB ONE
[2017-09-26 19:54] VITALS: BP 152/93
[2017-09-26] MEDS ORDERED: DEX4 PO (20:09)
[2017-09-26] MEDS ORDERED: DIPH-740 PO (20:12)
[2017-09-26] MEDS ORDERED: ONDANSETRON 4 MG/2 ML VIAL IVP PRN (20:35)
--- NOTE | 2017-09-26 20:42 | History & Physical ---
History of Present Illness Chief Complaint Medication reactions History of Present Illness This patient was directly admitted through the cancer center after suffering side effects from her Darzalex infusion today. She developed hypertension and rash earlier today, but this has mostly resolved by the time of admission. History Problems: (1) Multiple myeloma, stage 1 (2) Plasmacytoma of bone Status: Chronic Home Meds Active Scripts Zolpidem Tartrate (ZOLPIDEM TARTRATE) 5 Mg Tablet, 1 TAB PO QHS, #30 TAB 1 Refill Prov:KINGSLEY WIN ALEMITE OPERATOR-BC, ONC 07/18/17 Acyclovir (ACYCLOVIR) 400 Mg Tablet, 400 MG PO BID, #60 TAB 5 Refills Prov:KINGSLEY WIN ALEMITE OPERATOR-BC, ONC 03/13/17 Docusate Sodium (COLACE) 100 Mg Capsule, 1 CAP PO BID, #30 CAP 0 Refills TAKE WITH A FULL GLASS OF WATER Prov:JANET CERON MD 03/09/17 Reported Medications Diphenhydramine Hcl (BENADRYL) 25 Mg Capsule, 50 MG PO HS Y for SLEEP, CAPSULE 09/26/17 Dexamethasone 4 Mg Tab (DEXAMETHASONE 4 MG TAB) 4 Mg Tab, 12 MG PO QWEEK, TAB 09/26/17 Daratumumab (Darzalex) 100 Mg/5 Ml (20 Mg/Ml) Vial, 1500 MG IV Weeks 1-8, Q7days; weeks 9-24, [id number]; weeks 25 and beyond [id number] until disease progression 09/12/17 Pomalidomide (POMALYST) 4 Mg Capsule, 4 MG PO DAILY, CAPSULE Take on days 1-21 of 28 day cycle 09/12/17 Ca Carbonate/Mag/Vitamin D3 (CORAL CALCIUM 1,500 MG CAP) 1 Each Capsule, 1 EACH PO QDAY, CAPSULE 05/31/16 [place]-3 Fatty Acids/Fish Oil (OMEGA 3 FISH OIL SOFTGEL) 1 Each Capsule.dr, 2 EACH PO QDAY 1200MG DAILY 01/05/16 Cholecalciferol (Vitamin D3) (VITAMIN D) 1,000 Unit Capsule, 6000 MG PO DAILY, CAPSULE 01/05/16 Multivitamin With Minerals (MULTIPLE VITAMIN) 1 Each Tablet, 1 EACH PO DAILY, TAB 01/05/16 Aspirin (ASPIR 81) 81 Mg Tablet.dr, 81 MG PO QDAY, TAB 01/05/16 Discontinued Scripts Dexamethasone 4 Mg Tab (DEXAMETHASONE 4 MG TAB) 4 Mg Tab, 20 MG PO weekly for 1 Day, #30 TAB 3 Refills Prov:VALERIE AYON MD 04/10/17 Oxycodone Hcl/Acetaminophen (OXYCODONE-ACETAMINOPHEN 5-325) 1 Each Tablet, 1 TAB PO Q4H Y for PAIN, #10 TAB 0 Refills Prov:JANET CERON MD 03/09/17 Allergies: Coded Allergies: bacitracin (Verified Adverse Reaction, Mild, RASH, 07/04/16) neomycin (Verified Adverse Reaction, Mild, RASH, 07/04/16) polymyxin B (Verified Adverse Reaction, Mild, RASH, 07/04/16) Patient History: FH: alcoholism FATHER FH: brain aneurysm MOTHER BROTHER OR SISTER BROTHER OR SISTER FH: emphysema FATHER FH: stroke Hx Smoking: No Smoking Status: Former Smoker Exposure to Second Hand Smoke?: No Caffeine Intake: Coffee Caffeine/Cups Per Day: 3 CPD Hx Alcohol Use: Yes Hx Substance Use Disorder: No Social Drug Use: Never Review of Systems All Systems Reviewed/Normal: Yes Exam Vital Signs Vital Signs Date Time Temp Pulse Resp B/P (MAP) Pulse Ox O2 Delivery O2 Flow Rate FiO2 09/26/17 19:54 98.4 94 14 152/93 (112) 94 Room Air Neuro: No Gross deficits Eyes: PERRLA Cardiovascular: Regular Rate and Rhythm Respiratory: Clear to Auscultation GI: Abd Soft and Non-Tender Extremities: No Edema Integumentary: No Cyanosis Assessment and Plan Problems: (1) Medication reaction Assessment & Plan: She developed known side effects of hypertension and rash earlier today during her Darzalex infusion. It was recommended by oncology that she be observed overnight to be sure there are no further respiratory issues. Venous Thromboembolism Antithrombotics Is Pt On Any Antithrombotics?: No JANET VALENZUELA DO September 26, 2017 20:42
[2017-09-26] MEDS ORDERED: POMALIDOMIDE 4 MG PO SCH (21:00)
[2017-09-26] MEDS ORDERED: PATIENT'S OWN MED PO SCH (21:00)
[2017-09-26 23:52] VITALS: BP 140/86
[2017-09-27 02:49] VITALS: BP 141/82
[2017-09-27 08:01] VITALS: BP 138/82
[2017-09-27] MEDS ORDERED: ACETAMINOPHEN 325 MG TAB PO PRN (08:10)
[2017-09-27] MEDS ORDERED: DEXAMETHASONE 4 MG TAB PO ONE (09:00)
--- NOTE | 2017-09-27 09:00 | Hospitalist Depart ---
Discharge Summary Reason for Hosp/Final Diag: (1) Medication reaction Hospital Course & Plan: Mrs. Mayers is a 62 y.o female with PMH of Plasmacytoma of Bone/Multiple Myeloma-1 who developed known side effects of hypertension and rash earlier today during her Darzalex infusion. It was recommended by oncology that she be observed overnight to be sure there are no further respiratory issues. 09/27: The patient is doing well today after the dose of steroids. Her BP is adequate and she has mild facial and neck erythema. She denies any complaint. She is being d/c'd and f/u with cancer center. Departure Weight (Pounds): 208 Weight (Ounces): 8.0 Condition: Improved Discharge: Home, Self Care Time Spent: < 30 min Discharge Instructions Home Meds Active Scripts Zolpidem Tartrate (ZOLPIDEM TARTRATE) 5 Mg Tablet, 1 TAB PO QHS, #30 TAB 1 Refill Prov:KINGSLEY WIN POWER ORIGINATOR-BC, ONC 07/18/17 Acyclovir (ACYCLOVIR) 400 Mg Tablet, 400 MG PO BID, #60 TAB 5 Refills Prov:KINGSLEY WIN POWER ORIGINATOR-BC, ONC 03/13/17 Docusate Sodium (COLACE) 100 Mg Capsule, 1 CAP PO BID, #30 CAP 0 Refills TAKE WITH A FULL GLASS OF WATER Prov:JANET CERON MD 03/09/17 Reported Medications Diphenhydramine Hcl (BENADRYL) 25 Mg Capsule, 50 MG PO HS Y for SLEEP, CAPSULE 09/26/17 Dexamethasone 4 Mg Tab (DEXAMETHASONE 4 MG TAB) 4 Mg Tab, 12 MG PO QWEEK, TAB 09/26/17 Daratumumab (Darzalex) 100 Mg/5 Ml (20 Mg/Ml) Vial, 1500 MG IV Weeks 1-8, Q7days; weeks 9-24, [id number]; weeks 25 and beyond [id number] until disease progression 09/12/17 Pomalidomide (POMALYST) 4 Mg Capsule, 4 MG PO DAILY, CAPSULE Take on days 1-21 of 28 day cycle 09/12/17 Ca Carbonate/Mag/Vitamin D3 (CORAL CALCIUM 1,500 MG CAP) 1 Each Capsule, 1 EACH PO QDAY, CAPSULE 05/31/16 [place]-3 Fatty Acids/Fish Oil (OMEGA 3 FISH OIL SOFTGEL) 1 Each Capsule.dr, 2 EACH PO QDAY 1200MG DAILY 01/05/16 Cholecalciferol (Vitamin D3) (VITAMIN D) 1,000 Unit Capsule, 6000 MG PO DAILY, CAPSULE 01/05/16 Multivitamin With Minerals (MULTIPLE VITAMIN) 1 Each Tablet, 1 EACH PO DAILY, TAB 01/05/16 Aspirin (ASPIR 81) 81 Mg Tablet.dr, 81 MG PO QDAY, TAB 01/05/16 Discontinued Scripts Dexamethasone 4 Mg Tab (DEXAMETHASONE 4 MG TAB) 4 Mg Tab, 20 MG PO weekly for 1 Day, #30 TAB 3 Refills Prov:VALERIE AYON MD 04/10/17 Oxycodone Hcl/Acetaminophen (OXYCODONE-ACETAMINOPHEN 5-325) 1 Each Tablet, 1 TAB PO Q4H Y for PAIN, #10 TAB 0 Refills Prov:JANET CERNO MD 03/09/17 Diet: Regular Activity: As Tolerated Copies to: RAJI FRAZIER DO; SUSIE MAYERS MD Venous Thromboembolism Antithrombotics Is Pt On Any Antithrombotics?: No LESIA MUIR MD September 27, 2017 09:00
[2017-09-28] MEDS ORDERED: INFLUENZA VIRUS VAC 0.5 ML SYR IM ONLY ONE (09:00)
== END 2017-09-27 10:10 | disposition home or self-care (01) ==
LOC: MED 18:07 → INTOOBSV 18:07
PROVIDERS: ADMIT Family Medicine; ATTEND Family Medicine
DX: T50.995A Adverse effect of other drugs, medicaments and biological substances, initial encounter (principal)
CPT/HCPCS: G0378; G0379; J8540

== ENCOUNTER 2017-10-24 14:57 | Outpatient (RCR) | payer BC ==
[2016-08-23 09:21] VITALS: BP 140/78
[~2017-10-24 14:57] MED LIST changes: +SULF-198 PO
== END 2017-10-31 09:46 | disposition home or self-care (01) ==
LOC: RAON 14:57
PROVIDERS: ATTEND Radiology Radiation Oncology
DX: C90.30 Solitary plasmacytoma not having achieved remission (principal); C79.51 Secondary malignant neoplasm of bone; Z92.3 Personal history of irradiation; Z79.899 Other long term (current) drug therapy; Z87.891 Personal history of nicotine dependence
CPT/HCPCS: 99212

== ENCOUNTER → 2017-11-17 | Outpatient (CLI) | payer BC ==
--- NOTE | 2017-11-17 15:47 | RADIOLOGY IMAGING REPORT ---
FACILITY: [facility] PATIENT NAME: KASSANDRA BOYCE : [id number] MR: [id number] V: [id number] EXAM DATE: [id number] ORDERING PHYSICIAN: RAJI FRAZIER TECHNOLOGIST: Jenny Bajwa PROCEDURE:BILATERAL DIGITAL SCREENING MAMMOGRAM WITH CAD ASSISTED INTERPRETATION & 3D TOMOSYNTHESIS COMPARISON:Prior mammograms 10/27/16, 07/15/15, 05/21/14, 05/16/13, 05/08/12, 05/02/11. INDICATIONS:SCREENING FINDINGS: A small amount of fibroglandular tissue is seen throughout the breasts. The parenchymal pattern has remained stable allowing for difference in mammographic technique & patient positioning. There is no evidence of malignant appearing mass, malignant appearing calcifications or other secondary sign of malignancy in either breast. DIAGNOSTIC CATEGORY 1--NEGATIVE. RECOMMENDATIONS: ROUTINE MAMMOGRAM AND CLINICAL EVALUATION. IMPRESSION: BIRADS 1: Negative. No significant abnormality is seen. Dictated by: Aiyana Oshea M.D. on 11/17/2017 at 15:36 Transcribed by: LATOSHA on 11/17/2017 at 15:45 Approved by: Aiyana Oshea M.D. on 11/17/2017 at 15:47 [facility]
== END ==
LOC: MAMO 04:15
PROVIDERS: ATTEND Family Medicine
DX: Z12.31 Encounter for screening mammogram for malignant neoplasm of breast (principal)
CPT/HCPCS: 77063; 77067

== ENCOUNTER 2017-12-25 09:59 | Outpatient (RCR) | payer BC ==
[2017-10-02 11:58] VITALS: BP 150/86
[2017-10-02 12:01] LABS: PLATELET COUNT, AUTOMATED 245 K/uL (150-450)
--- NOTE | 2017-10-03 18:06 | ONCOLOGY FOLLOW UP NOTE ---
EVENT DATE: October 02, 2017 CHIEF COMPLAINT/REASON FOR VISIT Ms. Mayers is a very pleasant 62-year-old female with multiple myeloma here currently on second line therapy with daratumumab, pomalidomide, dexamethasone after progression while on her sixth cycle of VRD. HISTORY OF PRESENT ILLNESS Cristobal returns. She tolerated VRD extremely well and had a very good partial response. She reached a plateau in May 2017 and then had three small consecutive increases. Her kappa light chain coby from 11 to 17. As a result we decided to transition to second line therapy with daratumumab, pomalidomide, dexamethasone. She is dual refractory to Velcade and Revlimid. She had her first dose of daratumumab last Monday and did have a reaction to it. With supportive measures she tolerated it well. She received Singulair prior to therapy, but still reacted. As a result she did have poor sleep due to the increased steroid that was required. We do not plan to change any of the premedications for dose two, but we did discuss how the likelihood of response drops dramatically with the second and third dose. Her history includes completing palliative radiation to the eighth rib. This developed while on therapy as well. 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 This led to an x-ray revealing a solitary lytic lesion in the distal left humerus. Biopsy was done in [place] and was treated with radiation. She subsequently underwent a PET/CT in early 2016, showing no evidence of metastatic disease at the time. Her light chains increased up to 45 and she was subsequently discharged with relapse. She had 20% plasma cells in the bone marrow and we initiated therapy with VRD. There were five areas concerning for relapse in a PET scan in the fall of 2016. She has predominant bone disease with no other major CRAB symptoms. We started Zometa monthly given her bone prominent disease, and she has had two doses thus far. We are now able to switch to every three months. She had greater than a partial response after two cycles, our initial goal. Slow dual-refractory resistant disease concluded in August 2017. Plan to transition to daratumumab, pomalidomide, dexamethasone, which means transplant will be delayed. PAST MEDICAL HISTORY 1. Multiple myeloma. 2. Status post left humerus ORIF. 3. Status post hysterectomy. 4. Status post back surgery. SOCIAL HISTORY Patient is and has presented with her and daughter. Former smoker with a 20 pack-year history of smoking, quitting 20 years ago. Occasional alcohol use. FAMILY HISTORY Remarkable for a stroke in her brother, but no cancers in the family. REVIEW OF SYSTEMS CONSTITUTIONAL: No fevers, chills, significant weight change. HEENT: No headache or vision changes. CARDIOVASCULAR: No chest pain, dyspnea on exertion or edema. RESPIRATORY: No shortness of breath, wheeze, cough. GASTROINTESTINAL: No nausea, vomiting. GENITOURINARY: No dysuria or hematuria. MUSCULOSKELETAL: No weakness, joint pain, bone pain. PSYCHIATRIC: No anxiety or depression. NEUROLOGIC: No concerning numbness. HEMATOLOGIC: No bruising or bleeding. IMMUNOLOGIC: No issues of infection. The remainder of the 14-point review of systems is otherwise negative. PHYSICAL EXAMINATION VITAL SIGNS: Blood pressure 150/86, pulse 82, respiratory rate 16, temperature 98.9 Fahrenheit, oxygen saturation 97% on room air. Weight 93.3 kg. Pain 0/10 , fatigue 3/10. GENERAL: In stable condition, resting comfortably in the chair. HEENT: Normocephalic, atraumatic. SKIN: No concerning lesions. NEUROLOGIC: No deficits. PSYCHIATRIC: Normal mood and affect. EXTREMITIES: No clubbing, cyanosis or edema. MUSCULOSKELETAL: No bone pain or any abnormalities in that regard. Remainder of her full physical exam was deferred today due to amount time spent in counseling and coordination of care. IMPRESSION AND PLAN Ms. Mayers is a very pleasant 62-year-old female with the following: Multiple myeloma without significant high risk features, but she has resistant disease and dual-refractory status to Velcade and Revlimid. She had very good partial response after two cycles of VRD and completed six cycles, but progressed well on therapy. She is now on daratumumab, pomalidomide and dexamethasone. She is currently cycle one day seven at this time. We do plan to pursue transplant and we discussed that again today. However, I would like to get her to maximum response with this regimen. It can take some time for this regimen to begin working, as people have varying responses to daratumumab based on the multiple mechanisms of action that it has. I answered all of their many questions today, reviewed her labs. I appreciate her primary care provider managing her thyroid. High risk, high complexity. Billing: Return visit level 5. Total time 45 minutes, counseling time 25 minutes. MTDD
[2017-10-04] VITALS (12 sets, daily range): BP systolic 124–150; BP diastolic 69–102
[2017-10-04] MEDS: MONTELUKAST SODIUM 10 MG TAB PO PRN (07:06)
[2017-10-04] MEDS: diphenhydrAMINE 25 MG CAP PO PRN (07:06)
[2017-10-04] MEDS: ACETAMINOPHEN 325 MG TAB PO PRN (07:07)
[2017-10-04] MEDS: FAMOTIDINE 10 MG/ML SDV IV PRN (07:09)
[2017-10-04] MEDS: DEXAMETHASONE SOD IVP PRN (07:10)
[2017-10-04] MEDS: NS 0.9% IVP PRN (07:10)
[2017-10-04] MEDS: LIDOCAINE/SOD BICARB 8.4% SYR ID PRN (07:10)
[2017-10-04] MEDS: NS(*) 0.9% 500 ML BAG 500 ML IV PRN (07:35)
[2017-10-09 08:33] VITALS: BP 138/78
[2017-10-09 08:49] LABS: PLATELET COUNT, AUTOMATED 197 K/uL (150-450)
[2017-10-10] VITALS (9 sets, daily range): BP systolic 124–151; BP diastolic 67–92
[2017-10-10] MEDS: NS(*) 0.9% 500 ML BAG 500 ML IV PRN (07:54)
[2017-10-10] MEDS: LIDOCAINE/SOD BICARB 8.4% SYR ID PRN (07:54)
[2017-10-10] MEDS: MONTELUKAST SODIUM 10 MG TAB PO PRN (07:54)
[2017-10-10] MEDS: FAMOTIDINE 10 MG/ML SDV IV PRN (07:55)
[2017-10-10] MEDS: diphenhydrAMINE 25 MG CAP PO PRN (07:55)
[2017-10-10] MEDS: ACETAMINOPHEN 325 MG TAB PO PRN (07:55)
[2017-10-10] MEDS: NS 0.9% IVP PRN (07:58)
[2017-10-10] MEDS: DEXAMETHASONE SOD IVP PRN (07:58)
[2017-10-17] VITALS (8 sets, daily range): BP systolic 110–145; BP diastolic 70–85
[2017-10-17] MEDS: LIDOCAINE/SOD BICARB 8.4% SYR ID PRN (07:49)
[2017-10-17] MEDS: NS(*) 0.9% 500 ML BAG 500 ML IV PRN (07:49)
[2017-10-17] MEDS: diphenhydrAMINE 25 MG CAP PO PRN (08:55)
[2017-10-17] MEDS: ACETAMINOPHEN 325 MG TAB PO PRN (08:56)
[2017-10-17] MEDS: FAMOTIDINE 10 MG/ML SDV IV PRN (08:58)
[2017-10-17] MEDS: DEXAMETHASONE SOD IVP PRN (09:15)
[2017-10-17] MEDS: NS 0.9% IVP PRN (09:15)
[2017-10-17] MEDS: MONTELUKAST SODIUM 10 MG TAB PO PRN (09:17)
[2017-10-23 08:48] LABS: PLATELET COUNT, AUTOMATED 279 K/uL (150-450)
[2017-10-23 11:44] VITALS: BP 124/71
[2017-10-24] VITALS (9 sets, daily range): BP systolic 118–150; BP diastolic 75–99
[2017-10-24] MEDS: NS(*) 0.9% 500 ML BAG 500 ML IV PRN (07:49)
[2017-10-24] MEDS: LIDOCAINE/SOD BICARB 8.4% SYR ID PRN (07:49)
[2017-10-24] MEDS: FAMOTIDINE 10 MG/ML SDV IV PRN (07:50)
[2017-10-24] MEDS: diphenhydrAMINE 25 MG CAP PO PRN (07:52)
[2017-10-24] MEDS: MONTELUKAST SODIUM 10 MG TAB PO PRN (07:52)
[2017-10-24] MEDS: ACETAMINOPHEN 325 MG TAB PO PRN (07:52)
[2017-10-24] MEDS: NS 0.9% IVP PRN (08:19)
[2017-10-24] MEDS: DEXAMETHASONE SOD IVP PRN (08:19)
[2017-10-30 08:34] VITALS: BP 118/86
[2017-10-30 08:38] LABS: PLATELET COUNT, AUTOMATED 200 K/uL (150-450)
--- NOTE | 2017-10-30 10:22 | EKG ---
FACILITY: [facility] - [place] PATIENT NAME: KASSANDRA BOYCE : [id number] MR: [id number] V: [id number] EXAM DATE: ORDERING PHYSICIAN: VALERIE AYON TECHNOLOGIST: Test Reason : Blood Pressure : / mmHG Vent. Rate : 088 BPM Atrial Rate : 088 BPM P-R Int : 174 ms QRS Dur : 078 ms QT Int : 364 ms P-R-T Axes : 034 017 043 degrees QTc Int : 440 ms Sinus rhythm Possible left atrial enlargement No acute appearing findings Confirmed by JACKIE JEONG ([id number] on 10/30/2017 10:23:30 AM Referred By: Confirmed By:JACKIE JEONG
[2017-10-31 07:50] VITALS: BP 113/83
[2017-10-31] MEDS: ACETAMINOPHEN 325 MG TAB PO PRN (08:32)
[2017-10-31] MEDS: MONTELUKAST SODIUM 10 MG TAB PO PRN (08:32)
[2017-10-31] MEDS: diphenhydrAMINE 25 MG CAP PO PRN (08:32)
[2017-10-31] MEDS: LIDOCAINE/SOD BICARB 8.4% SYR ID PRN (08:35)
[2017-10-31] MEDS: NS(*) 0.9% 500 ML BAG 500 ML IV PRN (08:35)
[2017-10-31] MEDS: FAMOTIDINE 10 MG/ML SDV IV PRN (08:35)
[2017-10-31] MEDS: NS 0.9% IVP PRN (08:50)
[2017-10-31] MEDS: DEXAMETHASONE SOD IVP PRN (08:50)
[2017-10-31 09:14] VITALS: BP 107/82
[2017-10-31 09:32] VITALS: BP 117/78
[2017-10-31 09:50] VITALS: BP 119/73
[2017-10-31 10:15] VITALS: BP 107/74
[2017-10-31 13:57] VITALS: BP 115/76
--- NOTE | 2017-11-02 11:16 | Pharmacy Note ---
Pharmacy Note Note: Pharmacy Note: Pt called with concerns regarding levofloxacin and reported that she thinks her concerns "are related to the smoke and cotton in the air" and less concern regarding levofloxacin. She is concerned about tendon rupture. Discussed the risks to her are increased as she is on chronic steroids, age 62. Recommended not completing strenuous activities ie, trips up and down the stairs, swimming, etc. Discussed that taking a two - three week break from strenuous activities. She understood and agreed with the plan and will complete the course of levofloxacin as prescribed. She will call with further questions. Evita Stein, PharmD, OP EVITA STEIN Nov 02, 2017 11:16
[2017-11-03 11:00] VITALS: BP 114/73
[2017-11-03 11:19] VITALS: BP 76/52
[2017-11-03 11:25] LABS: PLATELET COUNT, AUTOMATED 211 K/uL (150-450)
--- NOTE | 2017-11-03 12:57 | RADIOLOGY IMAGING REPORT ---
FACILITY: [facility] PATIENT NAME: Cristobal Mayers : 1955 MR: [id number] V: [id number] EXAM DATE: ORDERING PHYSICIAN: VALERIE AYON TECHNOLOGIST: Location: [facility] - [place] Patient: Cristobal Mayers : 1955 Visit/Account:[id number] Date of Sevice: 11/03/2017 2 VIEWS CHEST INDICATION: Chest tightness and fever post chemotherapy. COMPARISON: CT dated July 20, 2017. FINDINGS: Heart size within normal limits. There is linear perihilar opacities, left greater than right, new since prior exam. No focal consoli dation identified. There is no pneumothorax or pleural effusion. IMPRESSION: New linear perihilar opacities, left greater than right, concerning for atypical/viral pneumonia. Report Dictated By: Noble Nogueira MD at 11/03/2017 12:51 PM Report E-Signed By: Noble Nogueira MD at 11/03/2017 12:54 PM WSN:[id number]
--- NOTE | 2017-11-03 17:32 | Oncology Progress Note ---
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 This led to an x-ray revealing a solitary lytic lesion in the distal left humerus. Biopsy was done in [place] and was treated with radiation. 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 Her light chains increased up to 45 and she was subsequently discharged with relapse. She had 20% plasma cells in the bone marrow and we initiated therapy with VRD. -There were five areas concerning for relapse in a PET scan in the fall of 2016. She has predominant bone disease with no other major CRAB symptoms. Jul 18, 2017 - She started Zometa monthly x 2 months and will now switch to every three months. She is on Vitamin D daily. -Conditioning for transplant tentatively in November 2017 - 10/18/17 - Multiple myeloma without significant high risk features she has resistant disease and dual-refractory status to Velcade and Revlimid. She had very good partial response after two cycles of VRD and completed six cycles. -She is now on Daratumumab, pomalidomide and dexamethasone. She is currently cycle one day seven at this time. -Plan to pursue transplant upon maximum response with this regimen. It can take some time for this regimen to begin working, as people have varying responses to daratumumab based on the multiple mechanisms of action that it has. 11/03/2017 Atypical viral PNA. HPI HPI: Ms. Mayers is a very pleasant 62-year-old female who has Multiple myeloma without significant high risk features. She has resistant disease and dual-refractory status to Velcade and Revlimid. She had very good partial response after two cycles of VRD and completed six cycles. -She is currently on Daratumumab, pomalidomide and dexamethasone. She is currently cycle one day seven at this time. -Plan to pursue transplant upon maximum response with Daratumumab, pomalidomide. Diagnostic Studies Result Diagram: 11/03/17 1041 11/03/17 1041 Radiology: Chest Xray 11/03/17 IMPRESSION: New linear perihilar opacities, left greater than right, concerning for atypical/viral pneumonia. Report Dictated By: Noble Nogueira MD at 11/03/2017 12:51 PM PMH Patient History: FH: alcoholism FATHER FH: brain aneurysm MOTHER BROTHER OR SISTER BROTHER OR SISTER FH: emphysema FATHER FH: stroke Social/Occupational History Social History: Social History This is a 62 Yr old White female, she is M and has [] Children Hx Smoking: No Smoking Status: Former Smoker Exposure to Second Hand Smoke?: No Allergies & Medications Allergies: Coded Allergies: bacitracin (Verified Adverse Reaction, Mild, RASH, 07/04/16) neomycin (Verified Adverse Reaction, Mild, RASH, 07/04/16) polymyxin B (Verified Adverse Reaction, Mild, RASH, 07/04/16) Home Meds Active Scripts Zolpidem Tartrate (ZOLPIDEM TARTRATE) 5 Mg Tablet, 1 TAB PO QHS, #30 TAB 1 Refill Prov:KINGSLEY WIN MANAGER PROVIDER RELATIONS-BC, ONC 07/18/17 Acyclovir (ACYCLOVIR) 400 Mg Tablet, 400 MG PO BID, #60 TAB 5 Refills Prov:KINGSLEY WIN MANAGER PROVIDER RELATIONS-BC, ONC 03/13/17 Docusate Sodium (COLACE) 100 Mg Capsule, 1 CAP PO BID, #30 CAP 0 Refills TAKE WITH A FULL GLASS OF WATER Prov:JANET CERON MD 03/09/17 Reported Medications Dexamethasone 4 Mg Tab (DEXAMETHASONE 4 MG TAB) 4 Mg Tab, 40 MG PO QWEEK Y for STARTING 11/28, TAB 10/24/17 Sulfamethoxazole/Trimet 800-160 Mg Tab (BACTRIM DS TABLET) 1 Each Tablet, 1 TAB PO Q24H for 30 Days, #30 TAB 6 Refills 10/24/17 Diphenhydramine Hcl (BENADRYL) 25 Mg Capsule, 50 MG PO HS Y for SLEEP, CAPSULE 09/26/17 Daratumumab (Darzalex) 100 Mg/5 Ml (20 Mg/Ml) Vial, 1500 MG IV Weeks 1-8, Q7days; weeks 9-24, [id number]; weeks 25 and beyond [id number] until disease progression 09/12/17 Pomalidomide (POMALYST) 4 Mg Capsule, 4 MG PO DAILY, CAPSULE Take on days 1-21 of 28 day cycle 09/12/17 Ca Carbonate/Mag/Vitamin D3 (CORAL CALCIUM 1,500 MG CAP) 1 Each Capsule, 1 EACH PO QDAY, CAPSULE 05/31/16 [place]-3 Fatty Acids/Fish Oil (OMEGA 3 FISH OIL SOFTGEL) 1 Each Capsule.dr, 2 EACH PO QDAY 1200MG DAILY 01/05/16 Cholecalciferol (Vitamin D3) (VITAMIN D) 1,000 Unit Capsule, 6000 MG PO DAILY, CAPSULE 01/05/16 Multivitamin With Minerals (MULTIPLE VITAMIN) 1 Each Tablet, 1 EACH PO DAILY, TAB 01/05/16 Aspirin (ASPIR 81) 81 Mg Tablet.dr, 81 MG PO QDAY, TAB 01/05/16 Review of Systems Constitution: Positive for Other (fever) HEENT: No EARS: Tinnitus, No NOSE: Nasal Discharge, No THROAT: Sore Throat, No EYES: Dipolpia, No EARS: Hearing Problems, No NOSE: Epistaxis, No THROAT: Mouth Ulcers, No EYES: Vision Change, No OTHER Respiratory: Cough, No Expectoration, No Hemoptysis, No Shortness of Breath, No OTHER Cardiovascular: No Chest Pain, No Orthopnea, No Edema, No Palpitations, No OTHER Gastrointestinal: No Nausea, No Vomitting, No Diarrehea, No Constipation, No Heart Burn, No Swallowing Difficulties, No Abdominal Pain, No Other Gentiourinary: No Hematuria, No Dysuria, No Nocturia, No Other Musculoskeletal: Muscle Pain, Bone Pain Hematological: No Bleeding, Weakness, No Enlarged Lyph Nodes, No Bruising, No Fatigue, No Other Skin: No Skin Rash, No Lumps, No Erythema, No Dry Skin, No Moist Skin, No Other Psychiatric: Other Vital Signs Vital Signs Temperature: 98.0 Pulse: 68 BP Systolic: 114 BP Diastolic: 73 Respiratory Rate: 18 O2 SAT: 93 O2 Delivery: Height (feet) Height (inches) 65.50 Weight lb: 208 Weight oz: 8.0 Weight Kg (Constantino): Pain: 0 Physical Exam General: Looks Stable, Well Developed, Well Nourished HEENT: HEAD:Atraumatic Lungs: Clear to Auscultation Heart: Regular Rate and Rhythm Abdomen: Soft and Nontender Extremities: No Cyanosis, No Clubbing, No Edema, No Other Lymphatics: No Peripheral Lymphadenopathy, No Other Psychiatric: Mood appears normal, Affect appears normal Skin: No Skin Rashes, No Bruising, No Purpura, No Moist Desquamation, No Dry Desquamation, No Errythema, No Mild Errythema, No Moderate Errythema, No Severe Errythema, No Induration, No Other Breast: No No Masses, No No Nipple Discharge, No No Skin Changes, No Other Assessment Assessment: Ms. Mayers is a very pleasant 62-year-old female who has Multiple Myeloma without significant high risk features. She has resistant disease and dual-refractory s/p Velcade and Revlimid. She had very good partial response after two cycles of VRD and completed six cycles. She is currently on Daratumumab, pomalidomide and dexamethasone. 1. Multiple myeloma without significant high risk features s/p Velcade and Revlimid. Currently Daratumumab, pomalidomide and dexamethasone. 2. Atypical Viral PNA: revealed on Chest XR. - RAPID Flu swab ( Negative) - Afebrile at today's visit, she reported occasional non productive cough on 10/31/17 aprox for which she blamed to be the smoke and cotton in the air, patient was initiated treatmetn for presumptive PNA on 10/31/17 with levaquin. Patient had called yesterday with concerns over side effects of levaquin and wanting to stop taking levaquin . She was instructed to contine treatment as prescribed. given her risk of PNA. - Blood cultures drawn, pending UA Done labs reviewed; within limits. Patient instructed to continue taking - Levaquin 750mg PO daily x10 days - Acyclovir 400mg PO BID -Initiate Bactrim DS 2 tabs PO TID X 7 days ( patient to take 2 tabs instead of one tab of bactrim, three time per day) Plan Plan: - Continue Treatment Chemotherapy as scheduled Pursue transplant upon maximum response with Daratumumab, pomalidomide -Complete course of LEvofloxacin as prescribed -Continue Azyclovir -Increase dose and frequency of bactrim tabs. -RTC on for Labs -Supportive care tylenol, oral hydration fluids, energy conservation in the next few weeks. - Go to ER if Fever, SOB, chest pain, Palpitaions. RTC as scheduled for labs and Treatment monitoring. - RN to please Review blood cultures result and notify provider with findings. TIME SPENT: 30 minutes >25 minutes incudes but not limited to discussion, counselling and co-ordination~ of care. Discussion with other health care providers, record review, review of lab work, diagnostic tests. Plan discussed extensively with patient. All the questions answered today. Thank you for the opportunity to be involved in the care of Cristobal Kenney. Billing Level: 4 Sick visit establihed patient CC Copies to: VALERIE AYON MD, SARA FNP-C, ONC Nov 03, 2017 17:32
[2017-11-06 09:00] LABS: PLATELET COUNT, AUTOMATED 186 K/uL (150-450)
[2017-11-06 16:10] VITALS: BP 115/78
[2017-11-08] VITALS (8 sets, daily range): BP systolic 108–145; BP diastolic 65–80
[2017-11-08] MEDS: LIDOCAINE/SOD BICARB 8.4% SYR ID PRN (09:11)
[2017-11-08] MEDS: ACETAMINOPHEN 325 MG TAB PO PRN (09:12)
[2017-11-08] MEDS: MONTELUKAST SODIUM 10 MG TAB PO PRN (09:12)
[2017-11-08] MEDS: NS(*) 0.9% 500 ML BAG 500 ML IV PRN (09:12)
[2017-11-08] MEDS: diphenhydrAMINE 25 MG CAP PO PRN (09:13)
[2017-11-08] MEDS: FAMOTIDINE 10 MG/ML SDV IV PRN (09:14)
[2017-11-08] MEDS: NS 0.9% IVP PRN (09:22)
[2017-11-08] MEDS: DEXAMETHASONE SOD IVP PRN (09:22)
--- NOTE | 2017-11-08 22:33 | ONCOLOGY FOLLOW UP NOTE ---
EVENT DATE: November 08, 2017 CHIEF COMPLAINT AND REASON FOR VISIT Ms. Mayers is a very pleasant 62-year-old female with multiple myeloma on second line therapy with daratumumab, pomalidomide, dexamethasone after progression while on her sixth cycle of VRd. HISTORY OF PRESENT ILLNESS Cristobal returns. She is an extremely pleasant lady who tolerated VRd well and had a very good partial response. Unfortunately, she reached a plateau in May 2017 and then had three consecutive small increases. The kappa light chain coby from 11 to 17. As a result, we transitioned to second line therapy with daratumumab, pomalidomide, dexamethasone as she was dual refractory to Velcade and Revlimid. She did have a reaction to her first dose of daratumumab, but overall has tolerated it well since then. She has received seven doses thus far. She is having excellent response, and her light chain has improved from 44 down to 3.5. She had palliative radiation therapy to the eighth rib which was part of her relapse during treatment. She had a recent pneumonia, is on antibiotics, and feels much better. She does have grade 1 fatigue with this regimen, and we talked about management of this. I would like her to transition to autologous stem cell transplant soon given the refractory disease she had to front line therapy. 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 This led to an x-ray revealing a solitary lytic lesion in the distal left humerus. Biopsy was done in [place] and was treated with radiation. She subsequently underwent a PET/CT in early 2016, showing no evidence of metastatic disease at the time. Her light chains increased up to 45 and she was subsequently discharged with relapse. She had 20% plasma cells in the bone marrow and we initiated therapy with VRD. There were five areas concerning for relapse in a PET scan in the fall of 2016. She has predominant bone disease with no other major CRAB symptoms. We started Zometa monthly given her bone prominent disease, and she has had two doses thus far. We are now able to switch to every three months. She had greater than a partial response after two cycles, our initial goal. Slow dual-refractory resistant disease concluded in August 2017. Plan to transition to daratumumab, pomalidomide, dexamethasone, which means transplant will be delayed. PAST MEDICAL HISTORY 1. Multiple myeloma. 2. Status post left humerus ORIF. 3. Status post hysterectomy. 4. Status post back surgery. SOCIAL HISTORY Patient is and has presented with her and daughter. Former smoker with a 20 pack-year history of smoking, quitting 20 years ago. Occasional alcohol use. FAMILY HISTORY Remarkable for a stroke in her brother, but no cancers in the family. REVIEW OF SYSTEMS CONSTITUTIONAL: Positive fatigue. HEENT: No headache or vision changes. CARDIOVASCULAR: No chest pain, dyspnea on exertion or edema. RESPIRATORY: No shortness of breath, wheeze, cough. GASTROINTESTINAL: No nausea, vomiting. GENITOURINARY: No dysuria or hematuria. MUSCULOSKELETAL: No weakness, joint pain, bone pain. PSYCHIATRIC: No anxiety or depression. NEUROLOGIC: No concerning numbness. HEMATOLOGIC: No bruising or bleeding. IMMUNOLOGIC: No issues of infection. The remainder of the 14-point review of systems is otherwise negative. PHYSICAL EXAMINATION VITAL SIGNS: Blood pressure 145/80, pulse 95, respiratory rate 16, temperature 97.1 Fahrenheit, oxygen saturation 92% on room air. Weight 94 kg. Pain 3/10. Fatigue 4/10. GENERAL: Stable condition, resting comfortably in the chair. HEENT: Normocephalic, atraumatic. CARDIOVASCULAR: Regular rate and rhythm. LUNGS: Completely clear to auscultation bilaterally. She is on day 5 of antibiotics. ABDOMEN: Soft and nontender. EXTREMITIES: No clubbing, cyanosis, or edema. Remainder of physical exam otherwise unremarkable. IMPRESSION AND PLAN Ms. Mayers is a very pleasant 62-year-old female with the following: Multiple myeloma without significant high-risk features; however, she has resistant disease with dual refractory status to Velcade and Revlimid, relapsing during cycle 6 of this therapy. She is now on daratumumab, pomalidomide, and dexamethasone, tolerating it well with grade 1 fatigue. She did have a complication of a recent pneumonia and is on day 5 of antibiotics. This is nearing resolution, and she will finish a seven-day course. We have added Bactrim prophylactic antibiotic to her acyclovir given her immune suppression with this regimen. She is ready to proceed and will receive her seventh dose of daratumumab today, which is only a day late. Discussed again the role of autologous stem cell transplant, and given her response, I believe she will be ready for transplant later this summer or early fall. Will arrange for followup with Dr. Patel in [place]. I answered all her questions today. High risk, high complexity billing. Return visit level 5. Total time 45 minutes, counseling time 25. MTDD
[2017-11-13 08:32] VITALS: BP 102/73
[2017-11-13 08:45] LABS: PLATELET COUNT, AUTOMATED 182 K/uL (150-450)
[2017-11-14 08:18] VITALS: BP 130/96
[2017-11-14] MEDS: NS(*) 0.9% 500 ML BAG 500 ML IV PRN (08:27)
[2017-11-14] MEDS: LIDOCAINE/SOD BICARB 8.4% SYR ID PRN (08:27)
[2017-11-14] MEDS: FAMOTIDINE 10 MG/ML SDV IV PRN (08:28)
[2017-11-14] MEDS: MONTELUKAST SODIUM 10 MG TAB PO PRN (08:31)
[2017-11-14] MEDS: diphenhydrAMINE 25 MG CAP PO PRN (08:31)
[2017-11-14] MEDS: ACETAMINOPHEN 325 MG TAB PO PRN (08:31)
[2017-11-14] MEDS: DEXAMETHASONE SOD IVP PRN (08:47)
[2017-11-14] MEDS: NS 0.9% IVP PRN (08:47)
[2017-11-14 09:21] VITALS: BP 121/71
[2017-11-14 09:45] VITALS: BP 140/80
[2017-11-14 10:03] VITALS: BP 131/77
[2017-11-14 10:20] VITALS: BP 120/89
[2017-11-14 13:15] VITALS: BP 131/64
[2017-11-20 08:35] LABS: PLATELET COUNT, AUTOMATED 325 K/uL (150-450)
[2017-11-20 08:44] VITALS: BP 124/81
[2017-11-21] VITALS (7 sets, daily range): BP systolic 108–133; BP diastolic 70–90
[2017-11-21] MEDS: LIDOCAINE/SOD BICARB 8.4% SYR ID PRN (08:30)
[2017-11-21] MEDS: NS(*) 0.9% 500 ML BAG 500 ML IV PRN (08:31)
[2017-11-21] MEDS: diphenhydrAMINE 25 MG CAP PO PRN (08:54)
[2017-11-21] MEDS: ACETAMINOPHEN 325 MG TAB PO PRN (08:54)
[2017-11-21] MEDS: MONTELUKAST SODIUM 10 MG TAB PO PRN (08:54)
[2017-11-21] MEDS: FAMOTIDINE 10 MG/ML SDV IV PRN (08:55)
[2017-11-21] MEDS: NS 0.9% IVP PRN (09:15)
[2017-11-21] MEDS: DEXAMETHASONE SOD IVP PRN (09:15)
--- NOTE | 2017-11-21 14:29 | Medical Nutrition Therapy ---
Nutritional Education Nutrition Education Topic: Other (Nutrition during cancer treatment ) Learning Readiness: Interested Teaching Methods: Discussion, Handout Response to Teaching: Verbalize understanding Teaching Recipient: Patient Nutrition Counseling: Provided and reviewed handout on Eating during Cancer Treatment, discussed constipation and increasing fiber and fluids and benefits of prunes, encouraged patient to call or let RN know if she has any nutrition questions. Nutrition Monitoring & Eval RD Patient Assessment Time: 15 minutes (less than 15 minutes ) RD Assessment Type: RD Education KENNETH CORDERO RDN, JUVE Nov 21, 2017 14:29
[2017-11-27 08:49] LABS: PLATELET COUNT, AUTOMATED 241 K/uL (150-450)
[2017-11-27 17:25] VITALS: BP 124/76
--- NOTE | 2017-12-01 16:47 | Oncology Progress Note ---
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 This led to an x-ray revealing a solitary lytic lesion in the distal left humerus. Biopsy was done in [place] and was treated with radiation. 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 Her light chains increased up to 45 and she was subsequently discharged with relapse. She had 20% plasma cells in the bone marrow and we initiated therapy with VRD. -There were five areas concerning for relapse in a PET scan in the fall of 2016. She has predominant bone disease with no other major CRAB symptoms. Jul 18, 2017 - She started Zometa monthly x 2 months and will now switch to every three months. She is on Vitamin D daily. -Conditioning for transplant tentatively in November 2017 10/18/17 - Multiple myeloma without significant high risk features she has resistant disease and dual-refractory status to Velcade and Revlimid. She had very good partial response after two cycles of VRD and completed six cycles. -She is now on Daratumumab, pomalidomide and dexamethasone. She is currently cycle one day seven at this time. -Plan to pursue transplant upon maximum response with this regimen. It can take some time for this regimen to begin working, as people have varying responses to daratumumab based on the multiple mechanisms of action that it has. 11/03/2017 Atypical viral PNA. treated with Levaquin, plus Bactrim. Treatment Treatment Daratumumab, pomalidomide and dexamethasone. HPI HPI Cristobal Kenney is a very pleasant 62-year-old female who has Multiple Myeloma Dx: 2017without significant high risk features. She has resistant disease and dual-refractory status to Velcade and Revlimid. She had very good partial response after two cycles of VRD and completed six cycles. She is currently on Daratumumab, pomalidomide and dexamethasone. She is currently cycle three day one today. Patient presents that he consistent to today for her treatment of disease management. She reports that she took her Pomalist last night a day early. She reports being in her usual state of health, ecept tiredness, although she is on the go. She reports having hemorrhoids and using tuck pads. she also reports constipation which she takes Colace, and leg cramps for whic she takes homeopathic magnesium OTC remedy. -Plan to pursue transplant upon maximum response with Daratumumab, pomalidomide. Saw sfevers, N/V/D. no night sweats, chills, no sore throat, no bleeding, brushing, no headaches. Diagnostic Studies Result Diagram: 11/20/1781911/20/17 0820 PMH Patient History: FH: alcoholism FATHER FH: brain aneurysm MOTHER BROTHER OR SISTER BROTHER OR SISTER FH: emphysema FATHER FH: stroke Social/Occupational History Social History: Social History This is a 62 Yr old White female, she is M and has [] Children Hx Smoking: No Smoking Status: Former Smoker Exposure to Second Hand Smoke?: No Allergies & Medications Allergies: Coded Allergies: bacitracin (Verified Adverse Reaction, Mild, RASH, 07/04/16) neomycin (Verified Adverse Reaction, Mild, RASH, 07/04/16) polymyxin B (Verified Adverse Reaction, Mild, RASH, 07/04/16) Home Meds Active Scripts Sulfamethoxazole/Trimet 800-160 Mg Tab (BACTRIM DS TABLET) 1 Each Tablet, 1 TAB PO Q24H for 30 Days, #30 TAB 6 Refills Prov:VALERIE AYON MD 11/08/17 Zolpidem Tartrate (ZOLPIDEM TARTRATE) 5 Mg Tablet, 1 TAB PO QHS, #30 TAB 1 Refill Prov:KINGSLEY WINBC, ONC 07/18/17 Acyclovir (ACYCLOVIR) 400 Mg Tablet, 400 MG PO BID, #60 TAB 5 Refills Prov:KINGSLEY WIN, ONC 03/13/17 Docusate Sodium (COLACE) 100 Mg Capsule, 1 CAP PO BID, #30 CAP 0 Refills TAKE WITH A FULL GLASS OF WATER Prov:JANET CERON MD 03/09/17 Reported Medications Magnesium Phosphate (Magnesium Phosphate) 1 Gm Powder, 4 Y for MUSCLE CRAMPS 11/21/17 Witch [place] (TUCKS) 1 Each Med..pad, 1 EACH TP 11/21/17 Dexamethasone 4 Mg Tab (DEXAMETHASONE 4 MG TAB) 4 Mg Tab, 40 MG PO QWEEK Y for STARTING 11/28, TAB 10/24/17 Diphenhydramine Hcl (BENADRYL) 25 Mg Capsule, 50 MG PO HS Y for SLEEP, CAPSULE 09/26/17 Daratumumab (Darzalex) 100 Mg/5 Ml (20 Mg/Ml) Vial, 1500 MG IV Weeks 1-8, Q7days; weeks 9-24, [id number]; weeks 25 and beyond [id number] until disease progression 09/12/17 Pomalidomide (POMALYST) 4 Mg Capsule, 4 MG PO DAILY, CAPSULE Take on days 1-21 of 28 day cycle 09/12/17 Ca Carbonate/Mag/Vitamin D3 (CORAL CALCIUM 1,500 MG CAP) 1 Each Capsule, 1 EACH PO QDAY, CAPSULE 05/31/16 [place]-3 Fatty Acids/Fish Oil (OMEGA 3 FISH OIL SOFTGEL) 1 Each Capsule.dr, 2 EACH PO QDAY 1200MG DAILY 01/05/16 Cholecalciferol (Vitamin D3) (VITAMIN D) 1,000 Unit Capsule, 6000 MG PO DAILY, CAPSULE 01/05/16 Multivitamin With Minerals (MULTIPLE VITAMIN) 1 Each Tablet, 1 EACH PO DAILY, TAB 01/05/16 Aspirin (ASPIR 81) 81 Mg Tablet.dr, 81 MG PO QDAY, TAB 01/05/16 Review of Systems Constitution: Denies Appetite/Weight Change, Denies Fever/Chills/Sweating, Denies Recent Infection, Positive for Other HEENT: No EARS: Tinnitus, No NOSE: Nasal Discharge, No THROAT: Sore Throat, No EYES: Dipolpia, No EARS: Hearing Problems, No NOSE: Epistaxis, No THROAT: Mouth Ulcers, No EYES: Vision Change, No OTHER Respiratory: No Cough, No Expectoration, No Hemoptysis, No Shortness of Breath , No OTHER Cardiovascular: No Chest Pain, No Orthopnea, No Edema, No Palpitations, No OTHER Gastrointestinal: No Nausea, No Vomitting, No Diarrehea, No Constipation, No Heart Burn, No Swallowing Difficulties, No Abdominal Pain, No Other Gentiourinary: No Hematuria, No Dysuria, No Nocturia, No Other Musculoskeletal: Muscle Pain, Bone Pain Hematological: No Bleeding, Weakness, No Enlarged Lyph Nodes, No Bruising, Fatigue, No Other Skin: No Skin Rash, No Lumps, No Erythema, No Dry Skin, No Moist Skin, No Other Psychiatric: Other Vital Signs Vital Signs Temperature: 97.1 Pulse: 79 BP Systolic: 122 BP Diastolic: 75 Respiratory Rate: 16 O2 SAT: 95 O2 Delivery: Height (feet) Height (inches) 65.50 Weight lb: 208 Weight oz: 8.0 Weight Kg (Constantino): Pain: 2 PERFORMANCE STATUS: ECOG 1- Strenuous physical activity restricted; fully ambulatory and able to carry out light work. Physical Exam General: Looks Stable, Well Developed, Well Nourished HEENT: HEAD:Atraumatic Lungs: Clear to Auscultation Heart: Regular Rate and Rhythm Abdomen: Soft and Nontender Extremities: No Cyanosis, No Clubbing, No Edema, No Other Lymphatics: No Peripheral Lymphadenopathy, No Other Psychiatric: Mood appears normal, Affect appears normal Skin: No Skin Rashes, No Bruising, No Purpura, No Moist Desquamation, No Dry Desquamation, No Errythema, No Mild Errythema, No Moderate Errythema, No Severe Errythema, No Induration, No Other Breast: No No Masses, No No Nipple Discharge, No No Skin Changes, No Other Rectal Hemorrhoids, external. reported. Assessment and Plan Assessment and Plan Cristobal Kenney is a very pleasant 62-year-old female who has Multiple Myeloma Dx: 2017without significant high risk features. She has resistant disease and dual-refractory status to Velcade and Revlimid. She had very good partial response after two cycles of VRD and completed six cycles. She is currently on Daratumumab, pomalidomide and dexamethasone. She is currently cycle three day one today Diagnostic Data Multiple Myeloma marker 10/23/17 IgG 504; IgA 29; IgM32; Free Kamaili LC Quant 3.50; Free Lambda LC Quant 0.30; Free Kamaili/Lambda ratio 11.67. 11/21/17 IgG ; IgA ; IgM; Free Kamaili LC Quant ; Free Lambda LC Quant ; Free Kamaili/Lambda ratio 1. Multiple myeloma without significant high risk features s/p Velcade and Revlimid. Currently Daratumumab, pomalidomide and dexamethasone. 2. Atypical Viral PNA: revealed on Chest XR resolved and treated with levaquin and bactrim BLOOD CULTURE Final 11/09/17-08 NO GROWTH AFTER 5 DAYS IN BOTH THE AEROBIC AND ANAEROBIC BOTTLES. URINE CULTURE Final 11/05/17-45 <10,000 COL/ML GROWTH(ONE COLONY)PRESENT 3. Constipation. on colace, senna, miralax, PRN 4. External hemorrhoids. using tuck pads. Plan: - Continue Treatment Chemotherapy as scheduled Pursue transplant upon maximum response with Daratumumab, pomalidomide -Continue complete course Bactrim 800mg As prescribed -Continue Azyclovir - Continue to take colace and use tuckpads for minor nonbleeding hemorrhoids -Continue use of artificial tears -RTC for weekly lab s CBC, CMP, -Supportive care tylenol, oral hydration fluids, energy conservation in the next few weeks. - Go to ER if Fever, SOB, chest pain, Palpitations. - RTC as scheduled for labs and Treatment monitoring. -Education, patient instructed to go to ER immediately and or call Clinic if any Shortness of Breath, Temp >/=100.4, fevers, chills, cardiac type chest pain , bleeding, excessive bruising, headaches, blurry vision, dizziness, abdominal pain, and pain unrelieved by medication. TIME SPENT: 30 minutes >25 minutes incudes but not limited to discussion, counselling and co-ordination~ of care. Discussion with other health care providers, record review, review of lab work, diagnostic tests. Plan discussed extensively with patient. All the questions answered today. Thank you for the opportunity to be involved in the care of Cristobal Kenney. Billing Level: 4 Return visit DANNY ADAMS, ONC Nov 21, 2017 10:07
[2017-12-04 08:55] VITALS: BP 138/76
[2017-12-04 09:04] LABS: PLATELET COUNT, AUTOMATED 249 K/uL (150-450)
[2017-12-05 08:07] VITALS: BP 112/80
[2017-12-05] MEDS: NS(*) 0.9% 500 ML BAG 500 ML IV PRN (08:47)
[2017-12-05] MEDS: LIDOCAINE/SOD BICARB 8.4% SYR ID PRN (08:47)
[2017-12-05] MEDS: diphenhydrAMINE 25 MG CAP PO PRN (08:53)
[2017-12-05] MEDS: MONTELUKAST SODIUM 10 MG TAB PO PRN (08:53)
[2017-12-05] MEDS: ACETAMINOPHEN 325 MG TAB PO PRN (08:53)
[2017-12-05] MEDS: FAMOTIDINE 10 MG/ML SDV IV PRN (09:22)
[2017-12-05] MEDS: DEXAMETHASONE SOD IVP PRN (09:29)
[2017-12-05] MEDS: NS 0.9% IVP PRN (09:29)
[2017-12-05 10:01] VITALS: BP 125/66
[2017-12-05 12:02] VITALS: BP 126/77
[2017-12-05 16:12] VITALS: BP 135/81
[2017-12-11 11:10] LABS: PLATELET COUNT, AUTOMATED 198 K/uL (150-450)
[2017-12-11 11:18] VITALS: BP 137/82
--- NOTE | 2017-12-12 23:34 | ONCOLOGY FOLLOW UP NOTE ---
EVENT DATE: December 11, 2017 CHIEF COMPLAINT/REASON FOR VISIT Mrs. Mayers is a pleasant, 62-year-old female with multiple myeloma, on second line therapy with daratumumab, pomalidomibe, and dexamethasone after progression while on cycle six of VRd. HISTORY OF PRESENT ILLNESS Cristobal returns with her . She tolerated VRd very well and had a very good partial response. Unfortunately, she reached a plateau in May 2017 and then had three consecutive small increases with the kappa light chain rising from 11 to 17. As a result, we transitioned her to second line therapy with daratumumab, pomalidomide, and dexamethasone as she was dual refractory to the Velcade and Revlimid. She had a reaction to the first dose of daratumumab, but did well ever since then. She is having an excellent response with light chain improvement, and by report, she is now less than 1 down in [place]. She had palliative radiation therapy to the eighth rib which was part of her relapse at the beginning of treatment. Her recent second line therapy was complicated by pneumonia, but she has fully recovered from this after antibiotics. She met with Dr. Patel again, and we strongly recommend consideration of autologous stem cell transplant. She is ready to move forward with that. We do need to determine when and where she will get the G-CSF prior to her treatment. This should be approved through [facility] as it is being done for transplant. No other new issues. I answered all her questions today. 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 This led to an x-ray revealing a solitary lytic lesion in the distal left humerus. Biopsy was done in [place] and was treated with radiation. She subsequently underwent a PET CT in early 2016, showing no evidence of metastatic disease at the time. Her light chains increased up to 45, and she was subsequently discharged with relapse. She had 20% plasma cells in the bone marrow, and we initiated therapy with VRd. There were five areas concerning for relapse in a PET scan in the fall of 2016. She has predominant bone disease with no other major CRAB symptoms. We started Zometa monthly given her bone prominent disease, and she has had two doses thus far. We are now able to switch to every three months. She had greater than a partial response after two cycles, our initial goal. Slow dual-refractory resistant disease concluded in August 2017. Plan to transition to daratumumab, pomalidomide, dexamethasone, which means transplant will be delayed. PAST MEDICAL HISTORY 1. Multiple myeloma. 2. Status post left humerus ORIF. 3. Status post hysterectomy. 4. Status post back surgery. SOCIAL HISTORY Patient is and has presented with her and daughter. Former smoker with a 20 pack-year history of smoking, quitting 20 years ago. Occasional alcohol use. FAMILY HISTORY Remarkable for a stroke in her brother, but no cancers in the family. REVIEW OF SYSTEMS CONSTITUTIONAL: Positive fatigue. HEENT: No headache or vision changes. CARDIOVASCULAR: No chest pain, dyspnea on exertion, or edema. RESPIRATORY: No shortness of breath, wheeze, cough. GASTROINTESTINAL: No nausea, vomiting. GENITOURINARY: No dysuria or hematuria. MUSCULOSKELETAL: No weakness, joint pain, bone pain. PSYCHIATRIC: No anxiety or depression. NEUROLOGIC: No concerning numbness. HEMATOLOGIC: No bruising or bleeding. IMMUNOLOGIC: No issues of infection. The remainder of the 14-point review of systems is otherwise negative. PHYSICAL EXAMINATION VITAL SIGNS: Blood pressure 137/82, pulse 77, respiratory rate 18, temperature 98.2 Fahrenheit, oxygen saturation 97% on room air. Weight 96 kg. Pain zero/ 10. Fatigue 3/10. GENERAL: Stable condition, resting comfortably in the chair. HEENT: Normocephalic, atraumatic. ABDOMEN: Soft. EXTREMITIES: No clubbing, cyanosis, or edema. LUNGS: No respiratory distress. Remainder of physical exam unremarkable today and deferred due to amount of time spent in counseling and coordination of care. IMPRESSION AND PLAN Mrs. Mayers is a very pleasant 62-year-old female with the following: Multiple myeloma without significant high-risk features; however, she has resistant disease due to relapse while on first line therapy with Velcade and Revlimid, making her a high-risk patient. She is now on daratumumab, pomalidomide, and dexamethasone, tolerating it very well with grade 1 fatigue. We will stop the pomalidomide today and continue the daratumumab up to the transplant. I answered all of her questions. We made the proper adjustment to her Bactrim prophylactic antibiotic. We will see her back approximately two to three weeks after transplant and check labs every other day until we are confident that they can be changed to weekly. I answered all her questions today. BILLING Return visit level 4. Total time 30 minutes, counseling time 20. ANDREAD
[2017-12-18 09:48] VITALS: BP 118/77
[2017-12-19 08:11] VITALS: BP 142/85
[2017-12-19] MEDS: LIDOCAINE/SOD BICARB 8.4% SYR ID PRN (08:30)
[2017-12-19] MEDS: NS(*) 0.9% 500 ML BAG 500 ML IV PRN ×2 (08:30→10:54)
[2017-12-19] MEDS: MONTELUKAST SODIUM 10 MG TAB PO PRN (11:13)
[2017-12-19] MEDS: FAMOTIDINE 10 MG/ML SDV IV PRN (11:13)
[2017-12-19] MEDS: diphenhydrAMINE 25 MG CAP PO PRN (11:13)
[2017-12-19] MEDS: ACETAMINOPHEN 325 MG TAB PO PRN (11:13)
[2017-12-19 12:03] VITALS: BP 132/93
--- NOTE | 2017-12-19 12:05 | Oncology Progress Note ---
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 This led to an x-ray revealing a solitary lytic lesion in the distal left humerus. Biopsy was done in [place] and was treated with radiation. 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 Her light chains increased up to 45 and she was subsequently discharged with relapse. She had 20% plasma cells in the bone marrow and we initiated therapy with VRD. -There were five areas concerning for relapse in a PET scan in the fall of 2016. She has predominant bone disease with no other major CRAB symptoms. Jul 18, 2017 - She started Zometa monthly x 2 months and will now switch to every three months. She is on Vitamin D daily. -Conditioning for transplant tentatively in 01/30 201810/18/17 - Multiple myeloma without significant high risk features she has resistant disease and dual-refractory status to Velcade and Revlimid. She had very good partial response after two cycles of VRD and completed six cycles. -She is now on Daratumumab, pomalidomide and dexamethasone. She is currently cycle one day seven at this time. -Plan to pursue transplant upon maximum response with this regimen. It can take some time for this regimen to begin working, as people have varying responses to Daratumumab based on the multiple mechanisms of action that it has. 11/03/2017 Atypical viral PNA. treated with Levaquin, plus Bactrim. 12/11/2017 We Dc Pomalidomide Treatment Treatment - Daratumumab, pomalidomide and dexamethasone.this combo received until C3/D1 11/21/201712/11/2017 We Discontinued Pomalidomide will continue wirh Daratumumab until 01/02/2018 - Planned for Bm biopsy at [facility] on 01/12/2018 - Will initiate G-CSF. Zarxio at around 01/12/2018 - Central line will be placed on 01/15/2018 - Cells will be Harvested on 01/15/2018 - Transplant planned for 01/30/2018. HPI HPI Cristobal Kenney is a very pleasant 62-year-old female who has Multiple Myeloma Dx: 2017without significant high risk features. She has resistant disease and dual-refractory status to Velcade and Revlimid. She had very good partial response after two cycles of VRD and completed six cycles. She is currently on Daratumumab, pomalidomide and dexamethasone. She is currently cycle four day one today. Patient presents to cancer center to today for her treatment of disease management. She reports being in her usual state of health , except tiredness, although she is on the go. -Plan to pursue Stem cell Transplant on 01/30/2018 upon maximum response with Daratumumab, Denies sfevers, N/V/D. no night sweats, chills, no sore throat, no bleeding, brushing, no headaches. Diagnostic Studies Result Diagram: 12/18/17 0854 12/18/17 0854 [facility] Patient History: FH: alcoholism FATHER FH: brain aneurysm MOTHER BROTHER OR SISTER BROTHER OR SISTER FH: emphysema FATHER FH: stroke Social/Occupational History Social History: Social History This is a 62 Yr old White female, she is M and has [] Children Hx Smoking: No Smoking Status: Former Smoker Exposure to Second Hand Smoke?: No Allergies & Medications Allergies: Coded Allergies: bacitracin (Verified Adverse Reaction, Mild, RASH, 07/04/16) neomycin (Verified Adverse Reaction, Mild, RASH, 07/04/16) polymyxin B (Verified Adverse Reaction, Mild, RASH, 07/04/16) Home Meds Active Scripts Sulfamethoxazole/Trimet 800-160 Mg Tab (BACTRIM DS TABLET) 1 Each Tablet, 1 TAB PO Q24H for 30 Days, #30 TAB 6 Refills Prov:VALERIE AYON MD 11/08/17 Zolpidem Tartrate (ZOLPIDEM TARTRATE) 5 Mg Tablet, 1 TAB PO QHS, #30 TAB 1 Refill Prov:KINGSLEY WINP-BC, ONC 07/18/17 Acyclovir (ACYCLOVIR) 400 Mg Tablet, 400 MG PO BID, #60 TAB 5 Refills Prov:KINGSLEY WIN SENIOR DATA MINING ANALYST-BC, ONC 03/13/17 Docusate Sodium (COLACE) 100 Mg Capsule, 1 CAP PO BID, #30 CAP 0 Refills TAKE WITH A FULL GLASS OF WATER Prov:JANET CERON MD 03/09/17 Reported Medications Magnesium Phosphate (Magnesium Phosphate) 1 Gm Powder, 4 Y for MUSCLE CRAMPS 11/21/17 Witvivian Butlerel (TUCKS) 1 Each Med..pad, 1 EACH TP 11/21/17 Dexamethasone 4 Mg Tab (DEXAMETHASONE 4 MG TAB) 4 Mg Tab, 40 MG PO QWEEK Y for STARTING 11/28, TAB 10/24/17 Diphenhydramine Hcl (BENADRYL) 25 Mg Capsule, 50 MG PO HS Y for SLEEP, CAPSULE 09/26/17 Daratumumab (Darzalex) 100 Mg/5 Ml (20 Mg/Ml) Vial, 1500 MG IV Weeks 1-8, Q7days; weeks 9-24, [id number]; weeks 25 and beyond [id number] until disease progression 09/12/17 Pomalidomide (POMALYST) 4 Mg Capsule, 4 MG PO DAILY, CAPSULE Take on days 1-21 of 28 day cycle 09/12/17 Ca Carbonate/Mag/Vitamin D3 (CORAL CALCIUM 1,500 MG CAP) 1 Each Capsule, 1 EACH PO QDAY, CAPSULE 05/31/16 [place]-3 Fatty Acids/Fish Oil (OMEGA 3 FISH OIL SOFTGEL) 1 Each Capsule.dr, 2 EACH PO QDAY 1200MG DAILY 01/05/16 Cholecalciferol (Vitamin D3) (VITAMIN D) 1,000 Unit Capsule, 6000 MG PO DAILY, CAPSULE 01/05/16 Multivitamin With Minerals (MULTIPLE VITAMIN) 1 Each Tablet, 1 EACH PO DAILY, TAB 01/05/16 Aspirin (ASPIR 81) 81 Mg Tablet.dr, 81 MG PO QDAY, TAB 01/05/16 Review of Systems Constitution: Denies Appetite/Weight Change, Denies Fever/Chills/Sweating, Denies Recent Infection, Positive for Other HEENT: No EARS: Tinnitus, No NOSE: Nasal Discharge, No THROAT: Sore Throat, No EYES: Dipolpia, No EARS: Hearing Problems, No NOSE: Epistaxis, No THROAT: Mouth Ulcers, No EYES: Vision Change, No OTHER Respiratory: No Cough, No Expectoration, No Hemoptysis, No Shortness of Breath , No OTHER Cardiovascular: No Chest Pain, No Orthopnea, No Edema, No Palpitations, No OTHER Gastrointestinal: No Nausea, No Vomitting, No Diarrehea, No Constipation, No Heart Burn, No Swallowing Difficulties, No Abdominal Pain, No Other Gentiourinary: No Hematuria, No Dysuria, No Nocturia, No Other Musculoskeletal: Muscle Pain, Bone Pain Hematological: No Bleeding, Weakness, No Enlarged Lyph Nodes, No Bruising, Fatigue, No Other Skin: No Skin Rash, No Lumps, No Erythema, No Dry Skin, No Moist Skin, No Other Psychiatric: Other Vital Signs Vital Signs Temperature: 97.8 Pulse: 74 BP Systolic: 142 BP Diastolic: 85 Respiratory Rate: 15 O2 SAT: 95 O2 Delivery: Height (feet) Height (inches) 65.50 Weight lb: 208 Weight oz: 8.0 Weight Kg (Constantino): Pain: 4 Physical Exam General: Looks Stable, Well Developed, Well Nourished HEENT: HEAD:Atraumatic Lungs: Clear to Auscultation Heart: Regular Rate and Rhythm Abdomen: Soft and Nontender Extremities: No Cyanosis, No Clubbing, No Edema, Other Lymphatics: No Peripheral Lymphadenopathy, No Other Psychiatric: Mood appears normal, Affect appears normal Skin: No Skin Rashes, No Bruising, No Purpura, No Moist Desquamation, No Dry Desquamation, No Errythema, No Mild Errythema, No Moderate Errythema, No Severe Errythema, No Induration, No Other Breast: No No Masses, No No Nipple Discharge, No No Skin Changes, No Other Assessment and Plan Assessment and Plan Cristobal Kenney is a very pleasant 62-year-old female who has Multiple Myeloma Dx: 2017 without significant high risk features. She has resistant disease and dual-refractory status to Velcade and Revlimid. She had very good partial response after two cycles of VRD and completed six cycles. She is currently on Daratumumab, and dexamethasone.Pomalidomide was Dc on 12/11/17. She is here today for her C4/D1 Daratumumab. Reports no issues except minor plantar fascitis. she is hemodynamically stable, AAOx4. DIAGNOSTIC DATA Reviewed on [facility]. 1. Multiple myeloma without significant high risk features. Currently Daratumumab, and dexamethasone. s/p Velcade and Revlimid. planned for Stem cell Transplant on 01/30/2018 2. Atypical Viral PNA: revealed on Chest XR resolved and treated with levaquin and bactrim 3. Hypokalemia. K+ s 3.3. we will replete with 20meq Iv x 1 now, followed by oral Po 10meq daily. CHRONIC 3. Constipation. on colace, senna, miralax, PRN 4. External hemorrhoids. using tuck pads. 5. Plantar fascitis. reports sharp pain on right heel, when stepping down, patient may use golf ball to massage feet, and recommend f/u with ortho upon completion of treatment/transplant. PLAN - Replete potassium 20meq Iv x1 now, proceed with infusion as planned. and Rx for Po maintenance. - We will follow transplant instructions, and recommendations. Please RN to have Notes readily available. -Plan is to continue wirh Daratumumab until 01/02/2018. will discuss with for confirmation. - Planned for Bm biopsy at [facility] on 01/12/2018 - Will initiate G-CSF. Zarxio at around 01/12/2018 - Central line will be placed on 01/15/2018 - Cells will be Harvested on 01/15/2018 - Stem Cell Transplant planned for 01/30/2018. -patient to continue to walk, use her elliptical fitness machine, - Continue use of artificial tears -RTC for weekly lab s CBC, CMP, -Supportive care tylenol, oral hydration fluids, energy conservation in the next few weeks. - Go to ER if Fever, SOB, chest pain, Palpitations. - RTC as scheduled for labs and Treatment monitoring. -Education, patient instructed to go to ER immediately and or call Clinic if any Shortness of Breath, Temp >/=100.4, fevers, chills, cardiac type chest pain , bleeding, excessive bruising, headaches, blurry vision, dizziness, abdominal pain, and pain unrelieved by medication. TIME SPENT: 30 minutes >25 minutes incudes but not limited to discussion, counselling and co-ordination~ of care. Discussion with other health care providers, record review, review of lab work, diagnostic tests. Plan discussed extensively with patient. All the questions answered today. Thank you for the opportunity to be involved in the care of Cristobal Kenney. Billing Level: 4 Return visit DANNY ADAMS, ONC Dec 19, 2017 12:05
[2017-12-19 13:03] VITALS: BP 141/84
[2017-12-19 14:15] VITALS: BP 131/72
[2017-12-19 15:38] VITALS: BP 130/91
[~2017-12-25] VITALS: Ht 166.4 cm; Wt 94.7 kg
[~2017-12-25 09:59] MED LIST changes: +DARATUMUMAB IVPB ONE; +DEXAMETHASONE SOD IVP PRN; +DEXTROSE 5%(*) 100 ML BAG 100 ML IVPB PRN; +KCL (*) 20 MEQ/100 ML PREMIX 100 ML IVPB ONE; +MAGN1POW15; +NS 0.9% IVP PRN; +NS(*) 0.9% 100 ML BAG 100 ML IVPB PRN; +POTASSIUM CHL 20 MEQ TABCR PO ONE; +WITC1MED12 TP; +ZOLEDRONIC ACID 4 MG/5 ML VIAL 4 MG in NS(*) 0.9% 100 ML BAG 100 ML IVPB ONE; +[UNRECOGNIZED DRUG - OTHER] IVPB ONE
[2017-12-25 10:12] VITALS: BP 126/89
[2017-12-25 10:21] LABS: PLATELET COUNT, AUTOMATED 292 K/uL (150-450)
--- NOTE | 2017-12-26 16:20 | Oncology Note ---
[facility] Patient History: FH: alcoholism FATHER FH: brain aneurysm MOTHER BROTHER OR SISTER BROTHER OR SISTER FH: emphysema FATHER FH: stroke Social/Occupational History Social History: Social History This is a 62 Yr old White female, she is M and has [] Children Hx Smoking: No Smoking Status: Former Smoker Exposure to Second Hand Smoke?: No Allergies & Medications Allergies: Coded Allergies: bacitracin (Verified Adverse Reaction, Mild, RASH, 07/04/16) neomycin (Verified Adverse Reaction, Mild, RASH, 07/04/16) polymyxin B (Verified Adverse Reaction, Mild, RASH, 07/04/16) Home Meds Active Scripts Sulfamethoxazole/Trimet 800-160 Mg Tab (BACTRIM DS TABLET) 1 Each Tablet, 1 TAB PO Q24H for 30 Days, #30 TAB 6 Refills Prov:VALERIE AYON MD 11/08/17 Zolpidem Tartrate (ZOLPIDEM TARTRATE) 5 Mg Tablet, 1 TAB PO QHS, #30 TAB 1 Refill Prov:KINGSLEY WIN JUVENILE COURT JUDGE-BC, ONC 07/18/17 Acyclovir (ACYCLOVIR) 400 Mg Tablet, 400 MG PO BID, #60 TAB 5 Refills Prov:KINGSLEY WIN JUVENILE COURT JUDGE-BC, ONC 03/13/17 Docusate Sodium (COLACE) 100 Mg Capsule, 1 CAP PO BID, #30 CAP 0 Refills TAKE WITH A FULL GLASS OF WATER Prov:JANET CERON MD 03/09/17 Reported Medications Magnesium Phosphate (Magnesium Phosphate) 1 Gm Powder, 4 Y for MUSCLE CRAMPS 11/21/17 Keara Butcher (CA[place]LINCKS) 1 Each Med..pad, 1 EACH TP 11/21/17 Dexamethasone 4 Mg Tab (DEXAMETHASONE 4 MG TAB) 4 Mg Tab, 40 MG PO QWEEK Y for STARTING 11/28, TAB 10/24/17 Diphenhydramine Hcl (BENADRYL) 25 Mg Capsule, 50 MG PO HS Y for SLEEP, CAPSULE 09/26/17 Daratumumab (Darzalex) 100 Mg/5 Ml (20 Mg/Ml) Vial, 1500 MG IV Weeks 1-8, Q7days; weeks 9-24, [id number]; weeks 25 and beyond [id number] until disease progression 09/12/17 Pomalidomide (POMALYST) 4 Mg Capsule, 4 MG PO DAILY, CAPSULE Take on days 1-21 of 28 day cycle 09/12/17 Ca Carbonate/Mag/Vitamin D3 (CORAL CALCIUM 1,500 MG CAP) 1 Each Capsule, 1 EACH PO QDAY, CAPSULE 05/31/16 [place]-3 Fatty Acids/Fish Oil (OMEGA 3 FISH OIL SOFTGEL) 1 Each Capsule., 2 EACH PO QDAY 1200MG DAILY 01/05/16 Cholecalciferol (Vitamin D3) (VITAMIN D) 1,000 Unit Capsule, 6000 MG PO DAILY, CAPSULE 01/05/16 Multivitamin With Minerals (MULTIPLE VITAMIN) 1 Each Tablet, 1 EACH PO DAILY, TAB 01/05/16 Aspirin (ASPIR 81) 81 Mg Tablet.dr, 81 MG PO QDAY, TAB 01/05/16 History of Present Illness Evaluation Evaluation Date: Dec 05, 2017 Evaluation Time: 08:45 Primary Care Provider Primary Care Provider: Deedee White DO Accompanied by Accompanied by: Sister Last seen by : VALERIE AYON 11/08/17 Chief Complaint Chief Complaint C3/D15 Daratumumab for Multiple Myeloma Oncology History Oncology History Initially diagnosed with solitary plasmacytoma with pain in the left elbow. This led to an x-ray revealing a solitary lytic lesion in the distal left humerus. Biopsy was done in [place] and was treated with radiation. 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 Her light chains increased up to 45 and she was subsequently discharged with relapse. She had 20% plasma cells in the bone marrow and we initiated therapy with VRD. -There were five areas concerning for relapse in a PET scan in the fall of 2016. She has predominant bone disease with no other major CRAB symptoms. Jul 18, 2017 - She started Zometa monthly x 2 months and will now switch to every three months. She is on Vitamin D daily. -Conditioning for transplant tentatively in November 2017 10/18/17 - Multiple myeloma without significant high risk features she has resistant disease and dual-refractory status to Velcade and Revlimid. She had very good partial response after two cycles of VRD and completed six cycles. -She is now on Daratumumab, pomalidomide and dexamethasone. She is currently cycle one day seven at this time. -Plan to pursue transplant upon maximum response with this regimen. It can take some time for this regimen to begin working, as people have varying responses to daratumumab based on the multiple mechanisms of action that it has. 11/03/2017 Atypical viral PNA. treated with Levaquin, plus Bactrim. Treatment Treatment 12/05/2017 C3/D15 Daratumumab, pomalidomide and dexamethasone. Review of Systems Constitution: Denies Appetite/Weight Change, Denies Fever/Chills/Sweating, Denies Recent Infection, Positive for Other HEENT: No EARS: Tinnitus, No NOSE: Nasal Discharge, No THROAT: Sore Throat, No EYES: Dipolpia, No EARS: Hearing Problems, No NOSE: Epistaxis, No THROAT: Mouth Ulcers, No EYES: Vision Change, No OTHER Respiratory: No Cough, No Expectoration, No Hemoptysis, No Shortness of Breath , No OTHER Cardiovascular: No Chest Pain, No Orthopnea, No Edema, No Palpitations, No OTHER Gastrointestinal: No Nausea, No Vomitting, No Diarrehea, No Constipation, No Heart Burn, No Swallowing Difficulties, No Abdominal Pain, No Other Gentiourinary: No Hematuria, No Dysuria, No Nocturia, No Other Musculoskeletal: Muscle Pain, +Bone Pain on left shoulder upper back Hematological: No Bleeding, Weakness, No Enlarged Lyph Nodes, No Bruising, Fatigue, No Other Skin: No Skin Rash, No Lumps, No Erythema, No Dry Skin, No Moist Skin, No Other Psychiatric: Other Vital Signs Vital Signs Temperature: 98.18 Pulse: 79 BP Systolic: 112 BP Diastolic: 80 Respiratory Rate: 16 O2 SAT: 95 O2 Delivery: Room air Height (feet) Height (inches) 65.50 Weight lb: 208 Weight oz: 8.0 Weight Kg (Constantino): Pain: 3 PERFORMANCE STATUS: ECOG 1- Strenuous physical activity restricted; fully ambulatory and able to carry out light work. Physical Exam General: Looks Stable, Well Developed, Well Nourished HEENT: HEAD:Atraumatic Lungs: Clear to Auscultation Heart: Regular Rate and Rhythm Abdomen: Soft and Nontender Extremities: No Cyanosis, No Clubbing, No Edema, No Other Lymphatics: No Peripheral Lymphadenopathy, No Other Psychiatric: Mood appears normal, Affect appears normal Skin: No Skin Rashes, No Bruising, No Purpura, No Moist Desquamation, No Dry Desquamation, No Errythema, No Mild Errythema, No Moderate Errythema, No Severe Errythema, No Induration, No Other Breast: No No Masses, No No Nipple Discharge, No No Skin Changes, No Other Rectal Hemorrhoids, external. reported. HPI HPI Cristobal Kenney is a very pleasant 62-year-old female who has Multiple Myeloma Dx:2017 without significant high risk features. She has resistant disease and dual-refractory status to Velcade and Revlimid. She had very good partial response after two cycles of VRD and completed six cycles. She is currently on Daratumumab, pomalidomide and dexamethasone. Patient presents that he consistent to today for her treatment of disease management. She reports being in her usual state of health, except tiredness, although she is on the go. she denies cardiac type chest pin, no SOB, no major changes to bowel and bladder pattern within baseline.She reports having hemorrhoids and using tuck pads. she also reports constipation which she takes Colace, and leg cramps for which she takes homeopathic magnesium OTC remedy. -Plan to pursue transplant upon maximum response with Daratumumab, pomalidomide. Chas fevers, N/V/D. no night sweats, chills, no sore throat, no bleeding, brushing, no headaches. Diagnostic Data Multiple Myeloma marker 10/23/17 IgG 504; IgA 29; IgM32; Free [place] LC Quant 3.50; Free Lambda LC Quant 0.30; Free Lang[place]/Lambda ratio 11.67. 11/21/17 IgG ; IgA ; IgM; Free Langford LC Quant ; Free Lambda LC Quant ; Free Langford/Lambda ratio 1. Multiple myeloma without significant high risk features s/p Velcade and Revlimid. Currently Daratumumab, pomalidomide and dexamethasone. 2. Atypical Viral PNA: revealed on Chest XR resolved and treated with levaquin and bactrim BLOOD CULTURE Final 11/09/17-08 NO GROWTH AFTER 5 DAYS IN BOTH THE AEROBIC AND ANAEROBIC BOTTLES. URINE CULTURE Final 11/05/17-0945 <10,000 COL/ML GROWTH(ONE COLONY)PRESENT 3. Constipation. on colace, senna, miralax, PRN 4. External hemorrhoids. resolving- continue using tuck pads. 5. Hypokalemia K+ of 3.3 from 12/04/17 labs value. Asymptomatic, she denies paresthesia, no weight loss, regular pulse 79. hemodynamically stable Plan: - Continue Treatment Chemotherapy as scheduled - K+ of 3.3 from 12/04/17 labs value. Asymptomatic, she denies paresthesia, no weight loss, regular pulse 79.Admin K [id number] Pox1 given during today; treatment. and supplement of Potassium [id number] Po daily X7 days. - She has a f/u appointment tomorrow 12/06/17 with Transplant team in [place] Pursue transplant upon maximum response with Daratumumab, pomalidomide -Continue complete course Bactrim 800mg As prescribed -Continue Azyclovir - Continue to take colace and use tuckpads for minor nonbleeding hemorrhoids -Continue use of artificial tears -RTC for weekly lab s CBC, CMP, -Supportive care tylenol, oral hydration fluids, energy conservation in the next few weeks. - Go to ER if Fever, SOB, chest pain, Palpitations. - RTC as scheduled for labs and Treatment monitoring. -Education, patient instructed to go to ER immediately and or call Clinic if any Shortness of Breath, Temp >/=100.4, fevers, chills, cardiac type chest pain , bleeding, excessive bruising, headaches, blurry vision, dizziness, abdominal pain, and pain unrelieved by medication. TIME SPENT: 20 minutes >15 minutes incudes but not limited to discussion, counselling and co-ordination~ of care. Discussion with other health care providers, record review, review of lab work, diagnostic tests. Plan discussed extensively with patient. All the questions answered today. Thank you for the opportunity to be involved in the care of Cristobal Kenney. Billing Level: 3 Return visit DANNY ADAMS, ONC Dec 26, 2017 16:20
== END 2017-12-28 ==
LOC: SPU 09:59
PROVIDERS: ATTEND Internal Medicine
DX: Z51.11 Encounter for antineoplastic chemotherapy (principal); C90.30 Solitary plasmacytoma not having achieved remission; C40.00 Malignant neoplasm of scapula and long bones of unspecified upper limb; Z87.891 Personal history of nicotine dependence; R53.83 Other fatigue; E87.6 Hypokalemia
CPT/HCPCS: 36415; 71046; 81001; 82232; 82784; 83605; 83615; 83735; 83883; 84100; 84160; 84165; 84550; 85025; 85027; 86334; 87040; 87088; 87502; 93005; 96365; 96366; 96367; 96375; 96413; 96415; 99212; J1100; J3480; J3489; J7040; J7050; J9145; Q0163; S0028; 82040; 82247; 82310; 82374; 82435; 82565; 82947; 84075; 84132; 84155; 84295; 84450; 84460; 84520; J7030

== ENCOUNTER → 2017-12-29 | Outpatient (CLI) | payer BC ==
[~2017-12-29] MED LIST changes: -DARATUMUMAB IVPB ONE; -DEXAMETHASONE SOD IVP PRN; -DEXTROSE 5%(*) 100 ML BAG 100 ML IVPB PRN; -KCL (*) 20 MEQ/100 ML PREMIX 100 ML IVPB ONE; -NS 0.9% IVP PRN; -NS(*) 0.9% 100 ML BAG 100 ML IVPB PRN; -POTASSIUM CHL 20 MEQ TABCR PO ONE; -ZOLEDRONIC ACID 4 MG/5 ML VIAL 4 MG in NS(*) 0.9% 100 ML BAG 100 ML IVPB ONE; -[UNRECOGNIZED DRUG - OTHER] IVPB ONE
--- NOTE | 2017-12-29 10:28 | RADIOLOGY IMAGING REPORT ---
FACILITY: [facility] [place] PATIENT NAME: Cristobal Mayers : 1955 MR: [id number] V: [id number] EXAM DATE: ORDERING PHYSICIAN: FIDELINA GRAHAM TECHNOLOGIST: Location: [facility] Patient: Cristobal Mayers : 1955 Visit/Account:[id number] Date of Sevice: 12/29/2017 2 VIEWS CHEST INDICATION: Multiple myeloma COMPARISON: X-ray examination chest November 03, 2017 FINDINGS: Heart size within normal limits. There is stable linear scarring in the superior segment left lower lobe. No evidence of new infiltra te, consolidation, effusion or pneumothorax. No evidence of acute osseous finding. IMPRESSION: 1. Stable linear opacities superior segment left lower lobe most indicative of scarring. No change since prior x-ray. Report Dictated By: Álvaro Castañeda MD at 12/29/2017 10:22 AM Report E-Signed By: Álvaro Castañeda MD at 12/29/2017 10:25 AM WSN:[id number]
== END ==
LOC: RAD 09:36
PROVIDERS: ATTEND Registered Nurse
DX: R91.8 Other nonspecific abnormal finding of lung field (principal)
CPT/HCPCS: 71046

== ENCOUNTER → 2017-12-29 | Outpatient (CLI) | payer BC | LOC: US 02:36 | PROVIDERS: ATTEND Internal Medicine | DX: I51.7 Cardiomegaly (principal) | CPT/HCPCS: 93306 ==

== ENCOUNTER → 2018-01-02 | Outpatient (CLI) | payer BC ==
--- NOTE | 2018-01-02 17:21 | RADIOLOGY IMAGING REPORT ---
FACILITY: [facility] - [place] PATIENT NAME: Cristobal Mayers : 1955 MR: [id number] V: [id number] EXAM DATE: ORDERING PHYSICIAN: VALERIE AYON TECHNOLOGIST: Location: [facility] Patient: Cristobal Mayers : 1955 Visit/Account:[id number] Date of Sevice: 01/02/2018 Exam type: FOOT 3 VIEW RIGHT History: Right heel pain, no known injury, multiple myeloma Comparison: None. Findings: There is no evidence of acute fracture dislocation involving the right foot. There is a moderate siz e right calcaneal spur. There appears to be generalized demineralization. IMPRESSION: 1. Moderate right calcaneal spur Report Dictated By: Aiyana Oshea MD at 01/02/2018 5:17 PM Report E-Signed By: Aiyana Oshea MD at 01/02/2018 5:18 PM WSN:[email or web address]
== END ==
LOC: RAD 14:26
PROVIDERS: ATTEND Internal Medicine
DX: M77.31 Calcaneal spur, right foot (principal)

== ENCOUNTER 2018-03-12 14:18 | Outpatient (RCR) | payer BC ==
[2018-01-01 08:45] VITALS: BP 142/91
[2018-01-01 08:49] LABS: PLATELET COUNT, AUTOMATED 234 K/uL (150-450)
[2018-01-02 08:13] VITALS: BP 125/90
--- NOTE | 2018-01-02 08:52 | [facility] ONCOLOGY NOTE ---
EVENT DATE: January 01, 2018 CHIEF COMPLAINT/REASON FOR VISIT Ms. Mayers is a very pleasant 62-year-old female with multiple myeloma on second line daratumumab, pomalidomide and dexamethasone after progression while on cycle 6 of VRd. Currently in complete response. HISTORY OF PRESENT ILLNESS Cristobal returns with her . She tolerated VRd very well and had a very good partial response. Unfortunately, she reached a plateau in May 2017 and had three consecutive small increases with the kappa light chain rising from 11 to 17. As a result, we transitioned her to second line therapy with daratumumab, pomalidomide and dexamethasone as she was dual refractory to Velcade and Revlimid. She had a reaction to the first dose of daratumumab but otherwise has tolerated this regimen extremely well. She has had less side effects with pomalidomide than she did with the Revlimid. Her light chains are now at normal and have been for the last 1-1/2 months. She is set to proceed with autologous stem cell transplant on approximately January 30, 2018. She has stopped the pomalidomide at the instruction of Dr. Patel and will stop the daratumumab after her treatment tomorrow, January 02, 2018. We met today to discuss the next few weeks and answer her many questions today. Overall, she is doing well and is ready for transplant. 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 This led to an x-ray revealing a solitary lytic lesion in the distal left humerus. Biopsy was done in [place] and was treated with radiation. She subsequently underwent a PET CT in early 2016, showing no evidence of metastatic disease at the time. Her light chains increased up to 45, and she was subsequently discharged with relapse. She had 20% plasma cells in the bone marrow, and we initiated therapy with VRd. There were five areas concerning for relapse in a PET scan in the fall of 2016. She has predominant bone disease with no other major CRAB symptoms. We started Zometa monthly given her bone prominent disease, and she has had two doses thus far. We are now able to switch to every three months. She had greater than a partial response after two cycles, our initial goal. Slow dual-refractory resistant disease concluded in August 2017. Plan to transition to daratumumab, pomalidomide, dexamethasone, which means transplant will be delayed. PAST MEDICAL HISTORY 1. Multiple myeloma. 2. Status post left humerus ORIF. 3. Status post hysterectomy. 4. Status post back surgery. SOCIAL HISTORY Patient is and has presented with her and daughter. Former smoker with a 20 pack-year history of smoking, quitting 20 years ago. Occasional alcohol use. FAMILY HISTORY Remarkable for a stroke in her brother, but no cancers in the family. REVIEW OF SYSTEMS CONSTITUTIONAL: Positive fatigue. HEENT: No headache or vision changes. CARDIOVASCULAR: No chest pain, dyspnea on exertion, or edema. RESPIRATORY: No shortness of breath, wheeze, cough. GASTROINTESTINAL: No nausea, vomiting. GENITOURINARY: No dysuria or hematuria. MUSCULOSKELETAL: No weakness, joint pain, bone pain. PSYCHIATRIC: No anxiety or depression. NEUROLOGIC: No concerning numbness. HEMATOLOGIC: No bruising or bleeding. IMMUNOLOGIC: No issues of infection. The remainder of the 14-point review of systems is otherwise negative. PHYSICAL EXAMINATION VITAL SIGNS: Blood pressure 142/91, pulse 84, temperature 97.9 Fahrenheit, oxygen saturation 98% on room air. Weight 93.9 kg. Pain 4/10 in the right foot /heel. Fatigue 0/10. GENERAL: Stable condition, resting comfortably in the chair. MUSCULOSKELETAL: Examination of the feet bilaterally show no significant abnormalities. She has a cyst or lipoma that is present on the dorsal surface of the right foot but this has been present for many years and is not the source of pain. During the exam, she also notes some left elbow pain that she did not mention at first. I think it would be very reasonable for her to follow up with her orthopedist, who may can get simple x-rays. I do not object to low-dose ibuprofen for one to two days to help with this, although she is aware that Dr. Patel does not prefer this given her myeloma history. Her creatinine is normal today. CV: Regular rate and rhythm.. LUNGS: Clear. ABDOMEN: Soft. Remainder of physical exam otherwise unremarkable. IMPRESSION AND PLAN Mrs. Mayers is a very pleasant 62-year-old female with the followin. Multiple myeloma without high-risk features. However, she had resistant disease to first line therapy with Velcade and Revlimid, making her a high-risk patient. She is now on second line therapy and ready to move forward with autologous stem cell transplant next month. 2. 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 3. History of right knee Madsen's cyst but now presents with some right heel pain. I am suspicious this may be a bone spur or other benign finding. No concerns today. Otherwise, I answered all of her questions. BILLING Return visit level 4. Total time 30 minutes, counseling time 20. MTDD
[2018-01-02 10:01] VITALS: BP 105/71
[2018-01-02 11:07] VITALS: BP 116/60
[2018-01-02 12:31] VITALS: BP 123/80
[2018-01-02 13:39] VITALS: BP 124/82
[2018-01-02 16:03] VITALS: BP 125/82
[2018-01-08 08:23] LABS: PLATELET COUNT, AUTOMATED 226 K/uL (150-450)
[2018-01-23 11:28] LABS: PLATELET COUNT, AUTOMATED 164 K/uL (150-450)
[2018-01-23 13:24] VITALS: BP 118/72
[2018-02-26 08:55] VITALS: BP 131/78
[2018-02-26 10:10] LABS: PLATELET COUNT, AUTOMATED 188 K/uL (150-450)
--- NOTE | 2018-02-27 15:31 | ONCOLOGY FOLLOW UP NOTE ---
EVENT DATE: February 26, 2018 CHIEF COMPLAINT/REASON FOR VISIT Mrs. Mayers is a very pleasant patient of Dr. Mark and Dr. Patel with multiple myeloma stage IIA that received second-line therapy with daratumumab, pomalidomide, and dexamethasone after progression during cycle 6 of VRd that has now completed autologous stem cell transplant with day 1 being February 01, 2018. HISTORY OF PRESENT ILLNESS Cristobal returns with her . She tolerated VRd very well and had a very good partial response. Unfortunately, she reached a plateau in May 2017 with three small consecutive increases in the kappa light chain from 11 to 17. As a result, we transitioned her to second-line therapy with daratumumab, pomalidomide, and dexamethasone as she was still refractory to the Velcade and Revlimid. She responded quite well, and she had less side effects with the pomalidomide than she did with the Revlimid. Her light chains normalized. She had autologous stem cell transplant in [place] under the care of Dr. Patel on February 01, 2018. She received standard melphalan 200. She had been receiving Zometa every three months, and we plan to continue that at approximately day 100 post transplant. Recommend maintenance therapy to begin around that time as well and will discuss with Dr. Patel how best to do that, whether that should simply be pomalidomide, or if we should utilize daratumumab as well. Overall, she is doing quite well. She needs to reestablish in our clinic here in [place], and as I am only here every two weeks, I am seeing her today. Plan to see her approximately every two to four weeks. She sees Dr. Patel later this month as well. She has had issues with low potassium, and we plan to check her labs today. These are pending. 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 This led to an x-ray revealing a solitary lytic lesion in the distal left humerus. Biopsy was done in [place] and was treated with radiation. She subsequently underwent a PET/CT in early 2016, showing no evidence of metastatic disease at the time. Her light chains increased up to 45, and she was subsequently discharged with relapse. She had 20% plasma cells in the bone marrow, and we initiated therapy with VRd. There were five areas concerning for relapse in a PET scan in the fall of 2016. She has predominant bone disease with no other major CRAB symptoms. We started Zometa monthly given her bone prominent disease, and she has had two doses thus far. We are now able to switch to every three months. She had greater than a partial response after two cycles, our initial goal. Slow dual-refractory resistant disease concluded in August 2017. Plan to transition to daratumumab, pomalidomide, dexamethasone, which means transplant will be delayed. PAST MEDICAL HISTORY 1. Multiple myeloma. 2. Status post left humerus ORIF. 3. Status post hysterectomy. 4. Status post back surgery. SOCIAL HISTORY Patient is and has presented with her and daughter. Former smoker with a 20 pack-year history of smoking, quitting 20 years ago. Occasional alcohol use. FAMILY HISTORY Remarkable for a stroke in her brother, but no cancers in the family. REVIEW OF SYSTEMS CONSTITUTIONAL: Positive fatigue. HEENT: No headache or vision changes. CARDIOVASCULAR: No chest pain, dyspnea on exertion, or edema. RESPIRATORY: No shortness of breath, wheeze, cough. GASTROINTESTINAL: No nausea, vomiting. GENITOURINARY: No dysuria or hematuria. MUSCULOSKELETAL: Positive weakness. No joint pain or bone pain. Advised her to work on physical exercise and may need to consider oncology rehab if she does not improve. PSYCHIATRIC: No anxiety or depression. NEUROLOGIC: No concerning numbness. HEMATOLOGIC: No bruising or bleeding. IMMUNOLOGIC: No issues of infection. The remainder of the 14-point review of systems is otherwise negative. PHYSICAL EXAMINATION VITAL SIGNS: Blood pressure 131/78, pulse 95, respiratory rate 16, temperature 97.1 Fahrenheit, oxygen saturation 96% on room air. Weight 90.9 kg. Pain zero/10. Fatigue 8/10. I do believe she has lost a little bit of weight since transplant. Her weight is down approximately 8 pounds. GENERAL: Stable condition, resting comfortably in the chair. HEENT: Normocephalic, atraumatic. CARDIOVASCULAR: Regular rate and rhythm. LUNGS: Clear. ABDOMEN: Soft. EXTREMITIES: No clubbing, cyanosis, or edema. SKIN: No concerning findings. Remainder of physical exam otherwise unremarkable today. IMPRESSION AND PLAN Mrs. Mayers is a very pleasant 62-year-old female with the followin. Multiple myeloma without high-risk features. However, she has resistant disease due to relapse on first-line therapy with Velcade and Revlimid. I believe this makes her a high-risk patient. She did extremely well with second- line therapy and achieved normal kappa light chain. She had autologous stem cell transplant on February 01, 2018. 2. Hypogammaglobulinemia from treatment and myeloma. 3. History of right knee Madsen cyst. Currently no issues. 4. Would like to get a flu shot for her this month. Overall, she is doing well with transplant. Will see her every two to four weeks. Answered all of her questions today. BILLING Return visit level 5. Total time 45 minutes, counseling time 30. Extensive review of the transplant records from [place]. Answered all of her questions today. IRIS
[~2018-03-12] VITALS: Ht 166.4 cm; Wt 88.6 kg
[~2018-03-12 14:18] MED LIST changes: +ACETAMINOPHEN 325 MG TAB PO PRN; +DARATUMUMAB IVPB ONE; +DEXAMETHASONE SOD IVPB PRN; +DEXTROSE 5%(*) 100 ML BAG 100 ML IVPB PRN; +FAMOTIDINE 10 MG/ML SDV IVP PRN; -HYDR-4309 PO; +HYDR-653 PO; +INFLUENZA VIRUS VAC 0.5ML SYR IM ONLY ONE; +LIDOCAINE/SOD BICARB 8.4% SYR ID PRN; +MONTELUKAST SODIUM 10 MG TAB PO PRN; +NS 0.9% IVPB PRN; +NS(*) 0.9% 100 ML BAG 100 ML IVPB PRN; +NS(*) 0.9% 500 ML BAG 500 ML IV PRN; +POTA25TA28 PO; +[UNRECOGNIZED DRUG - OTHER] IVPB ONE; +diphenhydrAMINE 25 MG CAP PO PRN
[2018-03-12 14:23] VITALS: BP 140/85
--- NOTE | 2018-03-13 16:15 | SCH[facility]ER ONCOLOGY NOTE ---
DATE OF EVENT: March 12, 2018 CHIEF COMPLAINT/REASON FOR VISIT Ms. Mayers is a very pleasant patient of Dr. Mark and Dr. Oksana Patel with multiple myeloma stage IIA who received second-line therapy with daratumumab, pomalidomide, and dexamethasone after progression during cycle six of VRd, but now has completed autologous stem cell transplant with day 1 being February 01, 2018. HISTORY OF PRESENT ILLNESS Cristobal returns with her . She tolerated VRd very well and had a very good partial response. Unfortunately, she reached a plateau in May 2017 with three small consecutive increases in the kappa light chain from March 2017. As a result, we transitioned her to second-line therapy with daratumumab, pomalidomide, and dexamethasone as she was considered refractory to the Velcade and Revlimid. She responded quite well, and she had less side effects with the pomalidomide than she did with the Revlimid. Her light chains normalized and continue this way. She tolerated autologous stem cell transplant in [place] under the care of Dr. Patel on February 01, 2018, with standard melphalan 200. She tolerated it quite well. She has been getting Zometa every three months, and we plan to resume that at approximately day 100. Recommend maintenance therapy to begin around that time as well, and we will decide whether we want to simply use pomalidomide or utilize daratumumab as well. Overall, she is doing quite well. I am seeing her periodically on my days here in [place], but I am here only once to twice a month for the next few months, so I saw her twice this month. I see her back in approximately four weeks at this time. Our new nurse practitioner, Carolina, will be seeing her as well periodically as needed. Overall, she is doing exceptionally well, and she has followup with Dr. Patel tomorrow. We did choose to go ahead and give the flu shot as we frequently have flu starting around the first march. 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 This led to an x-ray revealing a solitary lytic lesion in the distal left humerus. Biopsy was done in [place] and was treated with radiation. She subsequently underwent a PET/CT in early 2016, showing no evidence of metastatic disease at the time. Her light chains increased up to 45, and she was subsequently discharged with relapse. She had 20% plasma cells in the bone marrow, and we initiated therapy with VRd. There were five areas concerning for relapse in a PET scan in the fall of 2016. She has predominant bone disease with no other major CRAB symptoms. We started Zometa monthly given her bone prominent disease, and she has had two doses thus far. We are now able to switch to every three months. She had greater than a partial response after two cycles, our initial goal. Slow dual-refractory resistant disease concluded in August 2017. Plan to transition to daratumumab, pomalidomide, dexamethasone, which means transplant will be delayed. PAST MEDICAL HISTORY 1. Multiple myeloma. 2. Status post left humerus ORIF. 3. Status post hysterectomy. 4. Status post back surgery. SOCIAL HISTORY Patient is and has presented with her and daughter. Former smoker with a 20 pack-year history of smoking, quitting 20 years ago. Occasional alcohol use. FAMILY HISTORY Remarkable for a stroke in her brother, but no cancers in the family. REVIEW OF SYSTEMS CONSTITUTIONAL: Positive fatigue. HEENT: No headache or vision changes. CARDIOVASCULAR: No chest pain, dyspnea on exertion, or edema. RESPIRATORY: No shortness of breath, wheeze, cough. GASTROINTESTINAL: No nausea, vomiting. GENITOURINARY: No dysuria or hematuria. MUSCULOSKELETAL: Positive weakness. No joint pain or bone pain. Advised her to work on physical exercise and may need to consider oncology rehab if she does not improve. PSYCHIATRIC: No anxiety or depression. NEUROLOGIC: No concerning numbness. HEMATOLOGIC: No bruising or bleeding. IMMUNOLOGIC: No issues of infection. The remainder of the 14-point review of systems is otherwise negative. PHYSICAL EXAMINATION VITAL SIGNS: Blood pressure 140/85, pulse 86, respiratory rate 16, temperature 97 Fahrenheit, oxygen saturation 96% on room air. Weight 88.6 kg. Pain zero/10. Fatigue 8/10. GENERAL: Stable condition, resting comfortably in the chair. HEENT: Normocephalic, atraumatic. CARDIOVASCULAR: Regular rate and rhythm. LUNGS: Clear. LYMPHATIC: Negative. ABDOMEN: Soft, nontender, nondistended. EXTREMITIES: No clubbing, cyanosis, or edema. SKIN: No rash. Positive alopecia. Remainder of physical exam otherwise unremarkable. IMPRESSION/REPORT/PLAN Mrs. Mayers is a very pleasant, 62-year-old female with the followin. Multiple myeloma without high-risk features. However, she did have resistant disease due to relapse during first-line therapy with Velcade and Revlimid. This makes her a high-risk patient. She did extremely well with second-line therapy with daratumumab, pomalidomide, and dexamethasone, and achieved a normal kappa light chain. She finished autologous stem cell transplant on February 01, 2018, and is in recovery and doing well. 2. Hypogammaglobulinemia from treatment and myeloma. 3. Will see her every two to four weeks. Answered all of her questions today. 4. She has already had the flu shot which is slightly early and defer to Dr. Patel on whether or not he would like to give her a booster at some point. We may see how this flu season progresses this year. BILLING Return visit level 4. Total time 30 minutes, counseling time 20. MTDD
== END 2018-03-29 ==
LOC: ONC 14:18
PROVIDERS: ATTEND Internal Medicine
DX: Z51.11 Encounter for antineoplastic chemotherapy (principal); C90.30 Solitary plasmacytoma not having achieved remission; C40.00 Malignant neoplasm of scapula and long bones of unspecified upper limb; D80.1 Nonfamilial hypogammaglobulinemia; Z87.891 Personal history of nicotine dependence; R53.83 Other fatigue; E87.6 Hypokalemia; M79.671 Pain in right foot; Z23 Encounter for immunization
CPT/HCPCS: 36415; 36592; 82784; 83735; 83883; 84100; 84165; 85025; 90471; 90674; 96375; 96413; 96415; 99212; J1100; J7040; J7050; J9145; Q0163; S0028; 82040; 82247; 82310; 82374; 82435; 82565; 82947; 84075; 84132; 84155; 84295; 84450; 84460; 84520

== ENCOUNTER 2018-04-24 12:59 | Outpatient (RCR) | payer BC ==
[~2018-04-24 12:59] MED LIST changes: -ACETAMINOPHEN 325 MG TAB PO PRN; -DARATUMUMAB IVPB ONE; -DEXAMETHASONE SOD IVPB PRN; -DEXTROSE 5%(*) 100 ML BAG 100 ML IVPB PRN; -FAMOTIDINE 10 MG/ML SDV IVP PRN; -INFLUENZA VIRUS VAC 0.5ML SYR IM ONLY ONE; -LIDOCAINE/SOD BICARB 8.4% SYR ID PRN; -MONTELUKAST SODIUM 10 MG TAB PO PRN; -NS 0.9% IVPB PRN; -NS(*) 0.9% 100 ML BAG 100 ML IVPB PRN; -NS(*) 0.9% 500 ML BAG 500 ML IV PRN; -[UNRECOGNIZED DRUG - OTHER] IVPB ONE; -diphenhydrAMINE 25 MG CAP PO PRN
[2018-04-24 13:09] VITALS: BP 131/81
[2018-04-24] MEDS ORDERED: ACYC-50 PO (14:58)
== END 2018-05-18 15:31 | disposition home or self-care (01) ==
LOC: RAON 12:59
PROVIDERS: ATTEND Radiology Radiation Oncology
DX: C90.30 Solitary plasmacytoma not having achieved remission (principal); C79.51 Secondary malignant neoplasm of bone; Z92.3 Personal history of irradiation; Z79.899 Other long term (current) drug therapy; Z87.891 Personal history of nicotine dependence; Z94.84 Stem cells transplant status
CPT/HCPCS: 99212

== ENCOUNTER 2018-06-26 08:27 | Outpatient (RCR) | payer BC ==
[2018-04-18 09:43] VITALS: BP 111/89
[2018-04-18 10:04] LABS: PLATELET COUNT, AUTOMATED 165 K/uL (150-450)
[2018-04-25 08:35] VITALS: BP 132/73
--- NOTE | 2018-04-25 22:08 | ONCOLOGY FOLLOW UP NOTE ---
EVENT DATE: April 25, 2018 CHIEF COMPLAINT/REASON FOR VISIT Mrs. Mayers is a pleasant, 62-year-old patient of Dr. Mark and Dr. Oksana Patel with multiple myeloma stage IIA, who received second line therapy with daratumumab, pomalidomide, and dexamethasone after progression during cycle 6 of VRd and has now completed autologous stem cell transplant with day zero being February 01, 2018. She is here for followup. HISTORY OF PRESENT ILLNESS Cristobal returns with her . She tolerated VRd very well and had a very good partial response. Unfortunately, she reached a plateau in May 2017 and had three small consecutive increases in the kappa light chain starting in March 2017 during therapy. As a result, we transitioned her to second line therapy with daratumumab, pomalidomide, and dexamethasone as she was considered refractory to the Velcade and Revlimid. She responded quite well, and she had less side effects with pomalidomide than she did with Revlimid. Her light chains had normalized and continue to be so. She tolerated stem cell transplant extremely well under the care of Dr. Patel with standard mephalan 200 mg/m2. She is getting Zometa every three months and plans to restart it again in May 2018. I anticipate we will begin maintenance therapy around that time as well; however, I will discuss with Dr. Patel about the consideration of holding off on that if she is MRD negative. I explained to the patient that this is not guideline based yet, but it is likely going to be the standard in the future. She understands this transition point in the care of myeloma patients. No new symptoms. She is doing quite well at this time. She is scheduled for her PET scan and bone marrow biopsy in [place] later this month. 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 This led to an x-ray revealing a solitary lytic lesion in the distal left humerus. Biopsy was done in [place] and was treated with radiation. She subsequently underwent a PET/CT in early 2016, showing no evidence of metastatic disease at the time. Her light chains increased up to 45, and she was subsequently discharged with relapse. She had 20% plasma cells in the bone marrow, and we initiated therapy with VRd. There were five areas concerning for relapse in a PET scan in the fall of 2016. She has predominant bone disease with no other major CRAB symptoms. We started Zometa monthly given her bone prominent disease, and she has had two doses thus far. We are now able to switch to every three months. She had greater than a partial response after two cycles, our initial goal. Slow dual-refractory resistant disease concluded in August 2017. Plan to transition to daratumumab, pomalidomide, dexamethasone, which means transplant will be delayed. PAST MEDICAL HISTORY 1. Multiple myeloma. 2. Status post left humerus ORIF. 3. Status post hysterectomy. 4. Status post back surgery. SOCIAL HISTORY Patient is and has presented with her and daughter. Former smoker with a 20 pack-year history of smoking, quitting 20 years ago. Occasional alcohol use. FAMILY HISTORY Remarkable for a stroke in her brother, but no cancers in the family. REVIEW OF SYSTEMS CONSTITUTIONAL: No fatigue, fevers, chills. She did have strep throat shortly after Thanksgiving with positive sick contacts from grandchildren. HEENT: No headache or vision changes. CARDIOVASCULAR: No chest pain, dyspnea on exertion, or edema. RESPIRATORY: No shortness of breath, wheeze, cough. GASTROINTESTINAL: No nausea or vomiting. GENITOURINARY: No dysuria or hematuria. MUSCULOSKELETAL: Positive diffuse back pain. We are getting the PET scan soon, but there is no focal pain that makes me concerned for myeloma lesion at this time, although I would like to get the PET scan. She may need to consider more physical exercise or working with oncology rehab. PSYCHIATRIC: No anxiety or depression. NEUROLOGIC: No numbness, deficits. HEMATOLOGIC: No bruising or bleeding. IMMUNOLOGIC: No issues with infection other than the recent infection with positive sick contacts, which she is now completely over. The remainder of the 14-point review of systems is otherwise negative. PHYSICAL EXAMINATION VITAL SIGNS: Blood pressure 132/73, pulse 91, respiratory rate 16, temperature 98.2 Fahrenheit, oxygen saturation 95% on room air. Weight 89.9 kg. Pain 3/10. Fatigue 3/10. GENERAL: Stable condition, resting comfortably in the chair. HEENT: Normocephalic, atraumatic. CARDIOVASCULAR: Regular rate and rhythm. LUNGS: Clear. ABDOMEN: Soft, nontender. EXTREMITIES: No clubbing, cyanosis, or significant edema. NEUROLOGIC: No deficits. Remainder of physical exam otherwise unremarkable. EGOG performance status of 1. IMPRESSION/REPORT/PLAN Mrs. Mayers is a very pleasant, 62-year-old female with the followin. Multiple myeloma without high-risk features. She does have resistant disease due to relapse during first line therapy with Velcade and Revlimid. This makes her a high-risk patient. She did extremely well with second line therapy with daratumumab, pomalidomide, and dexamethasone, and achieved a normal kappa light chain. She finished autologous stem cell transplant on February 01, 2018, and is in recovery and doing well. I anticipate we will likely want to pursue maintenance therapy with daratumumab and pomalidomide; however, I will discuss with Dr. Patel consideration of not doing this if she is MRD negative. Given her high-risk disease, though, I do think it would be reasonable to continue maintenance therapy with daratumumab alone or the doublet. 2. Hypogammaglobulinemia from treatment of myeloma. 3. See her at least monthly at this time. She sees Dr. Patel's team in two weeks. 4. She already had her flu shot. Continues her infectious disease prophylaxis. Zometa to resume in the new year. BILLING Return visit level 4. Total time 30 minutes, counseling time 25, high risk, high complexity. MTDD
[2018-05-24 14:48] VITALS: BP 123/84
[2018-05-24 15:04] LABS: PLATELET COUNT, AUTOMATED 140 K/uL (150-450)
--- NOTE | 2018-05-28 04:22 | ONCOLOGY FOLLOW UP NOTE ---
EVENT DATE: May 24, 2018 CHIEF COMPLAINT Followup for multiple myeloma. HISTORY OF PRESENT ILLNESS Patient is a 62-year-old female who was seen today as a work-in. She describes a recent sore throat and dry cough for the past five days. She has had low- grade fevers, T-max 99.2. She is using Tylenol and Mucinex DM, but feels she is maybe getting a little worse. She has a followup appointment with Dr. Colon on 05/29/18 to review recent bone marrow biopsy and PET scan results. 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 This led to an x-ray revealing a solitary lytic lesion in the distal left humerus. Biopsy was done in [place] and was treated with radiation. She subsequently underwent a PET/CT in early 2016, showing no evidence of metastatic disease at the time. Her light chains increased up to 45, and she was subsequently discharged with relapse. She had 20% plasma cells in the bone marrow, and we initiated therapy with VRd. There were five areas concerning for relapse in a PET scan in the fall of 2016. She has predominant bone disease with no other major CRAB symptoms. We started Zometa monthly given her bone prominent disease, and she has had two doses thus far. We are now able to switch to every three months. She had greater than a partial response after two cycles. Slow dual-refractory resistant disease concluded in August 2017. Transitioned to daratumumab, pomalidomide, dexamethasone. Underwent autologous stem cell transplant on 02/01/18. PAST MEDICAL HISTORY 1. Multiple myeloma. 2. Status post left humerus ORIF. 3. Status post hysterectomy. 4. Status post back surgery. SOCIAL HISTORY Patient is and has one daughter. Former smoker with a 20 pack-year history of smoking, quitting 20 years ago. Occasional alcohol use. FAMILY HISTORY Remarkable for a stroke in her brother, but no cancers in the family. MEDICATIONS 1. Acyclovir 400 mg daily. 2. Calcium/vitamin D. 3. Docusate sodium. 4. Multivitamin. 5. Zolpidem 5 mg p.r.n. ALLERGIES 1. BACITRACIN. 2. NEOMYCIN. 3. POLYMYXIN B. REVIEW OF SYSTEMS A 12-point review of systems is performed and is negative except as stated above. PHYSICAL EXAMINATION VITAL SIGNS: Blood pressure 123/84, pulse 80, respirations 16, temperature 99.2, O2 saturation 94%. GENERAL: Patient is a well-developed but fatigued-appearing female in no acute distress. HEAD: Normocephalic, atraumatic. EYES: Sclerae anicteric. MOUTH: Slightly dry mucous membranes. No lesions. Erythema noted in posterior pharynx, but without exudates. NECK: Supple. No palpable adenopathy. LUNGS: Coarse cough, but lungs are clear bilaterally. CARDIOVASCULAR: Heart rate regular, 80 per minute, without murmur, S3 or S4. EXTREMITIES: No edema. NEUROLOGIC: Nonfocal. LABORATORY CBC today reveals a WBC of 4.4, hemoglobin 13.3, hematocrit 40.1, platelets 140,000. IMPRESSION AND PLAN The patient is a 62-year-old female diagnosed with multiple myeloma stage IIA. She underwent autologous stem cell transplant on 02/01/18. 1. Multiple myeloma. Patient recently underwent day 100 bone marrow biopsy and PET scan. She has a followup with Dr. Colon on 05/29/18. Consideration will be made to pursue maintenance therapy pending results of recent testing. Dr. Piedra will discuss this with Dr. Colon. 2. Upper respiratory infection. Likely bronchitis. Z-Talon is prescribed. She will notify us if she feels she is not improving. 3. Hypogammaglobulinemia. This is from previous treatment for myeloma. Most recent IgG was stable at 340. 4. Follow up with Dr. Piedra on 06/18/18. She will see Dr. Colon on 05/29/18. [facility]
[2018-06-18 08:03] VITALS: BP 133/86
--- NOTE | 2018-06-18 13:02 | SCHUSTER ONCOLOGY NOTE ---
EVENT DATE: June 18, 2018 CHIEF COMPLAINT/REASON FOR VISIT Ms. Mayers is a very pleasant, 62-year-old female currently in [facility] complete response for her stage IIA multiple myeloma. She received second line therapy with daratumumab, pomalidomide, and dexamethasone after progression during cycle 6 of VRd and has now completed autologous stem cell transplant with day zero being February 01, 2018. This is a followup appointment. HISTORY OF PRESENT ILLNESS Cristobal returns with her . She tolerated VRd very well and had a very good partial response. Unfortunately, she reached a plateau in May 2017 and had three small consecutive increases in her kappa light chain starting in March 2017 during therapy. As a result, we transitioned her to second line therapy with denise, pom and dex as she was considered refractory to both Velcade and Revlimid. She then pursued stem cell transplant and this was successfully done under the care of Dr. Paetl with standard melphalan 200 mg/m2 on February 01, 2018. She is here to discuss maintenance therapy. Her most recent bone marrow biopsy from the beginning of May was excellent but MRD was not able to be done as the test failed. Thus, we do need to assume that she is MRD positive but we do not know this. I agree with Dr. Patel that in this situation maintenance therapy is appropriate and we spent much of the time today discussing maintenance daratumumab versus maintenance pomalidomide. There are no direct [id number] trials comparing these two and both are excellent options. After discussion, she would like to move forward with maintenance daratumumab and I think this is very reasonable. She is ready to resume the Zometa as well. . 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 This led to an x-ray revealing a solitary lytic lesion in the distal left humerus. Biopsy was done in [place] and was treated with radiation. She subsequently underwent a PET/CT in early 2016, showing no evidence of metastatic disease at the time. Her light chains increased up to 45, and she was subsequently discharged with relapse. She had 20% plasma cells in the bone marrow, and we initiated therapy with VRd. There were five areas concerning for relapse in a PET scan in the fall of 2016. She has predominant bone disease with no other major CRAB symptoms. We started Zometa monthly given her bone prominent disease, and she has had two doses thus far. We are now able to switch to every three months. She had greater than a partial response after two cycles, our initial goal. Slow dual-refractory resistant disease concluded in August 2017. Plan to transition to daratumumab, pomalidomide, dexamethasone, which means transplant will be delayed. PAST MEDICAL HISTORY 1. Multiple myeloma. 2. Status post left humerus ORIF. 3. Status post hysterectomy. 4. Status post back surgery. SOCIAL HISTORY Patient is and has presented with her and daughter. Former smoker with a 20 pack-year history of smoking, quitting 20 years ago. Occasional alcohol use. FAMILY HISTORY Remarkable for a stroke in her brother, but no cancers in the family. REVIEW OF SYSTEMS CONSTITUTIONAL: No fevers, chills, fatigue. INFECTIOUS DISEASE: No issues with recent infection, although she has had two colds this winter thus far and she is completely over them. They seemed mild. HEENT: No headache or vision changes. CARDIOVASCULAR: No chest pain, dyspnea on exertion, or edema. RESPIRATORY: No shortness of breath, wheeze, cough. GASTROINTESTINAL: No nausea or vomiting. GENITOURINARY: No dysuria or hematuria. MUSCULOSKELETAL: Positive aches and pains but no new pain that raises concern. ENDOCRINE: No heat or cold intolerance. PSYCHIATRIC: No anxiety or depression. NEUROLOGIC: She does have some right hand symptoms that raise concern for carpal tunnel. She is able to alleviate the numbness by shaking her hand and improving the circulation. She was told many years ago that she had early signs of carpal tunnel when getting a general checkup with orthopedics for arthritis. HEMATOLOGIC: No bruising or bleeding. The remainder of the 14-point review of systems is otherwise negative. PHYSICAL EXAMINATION VITAL SIGNS: Blood pressure 133/86, pulse 90, respiratory rate 16, temperature 97.2 Fahrenheit, oxygen saturation 95% on room air. Weight 91.8 kg. Pain 0/10. Fatigue 0/10. GENERAL: Stable condition, resting comfortably in the chair. HEENT: Normocephalic, atraumatic. CARDIOVASCULAR: Regular rate and rhythm. LUNGS: Clear. ABDOMEN: Soft, nontender. No organomegaly or masses. EXTREMITIES: No clubbing, cyanosis or edema. SKIN: No concerning rashes. Remainder of physical exam is unremarkable. IMPRESSION/REPORT/PLAN Cristobal is a very pleasant, 62-year-old female with the followin. Multiple myeloma without high-risk features. However, she does have resistant disease due to relapse during first line therapy with Velcade and Revlimid. This makes her a high-risk patient. She is now in astringent complete response following second line therapy with daratumumab, pomalidomide, and dexamethasone followed by autologous stem cell transplant on February 01, 2018. Her MRD testing on the recent bone marrow failed so we do not know if she is positive or negative. We will assume that she is MRD positive as a result. Thus, I do think it is appropriate to continue maintenance of some kind, either daratumumab or pomalidomide or both. After discussion and review of Dr. Patel's consultation, the patient would like to move forward with maintenance daratumumab, which I think is a very appropriate choice. 2. Hypogammaglobulinemia. 3. Infectious disease. She has received her flu shot. She will get her immunization starting January 2019. Continue prophylactic acyclovir at this time. I answered all of their many questions today. BILLING Return visit level 5. Total time 45 minutes, counseling time 30. MTDD
[2018-06-20 08:52] VITALS: BP 135/84
[2018-06-20] MEDS: LIDOCAINE/SOD BICARB 8.4% SYR ID PRN (08:58)
[2018-06-20 10:35] VITALS: BP 113/74
[~2018-06-26] VITALS: Ht 166.4 cm; Wt 92.0 kg
[2018-06-26] VITALS (12 sets, daily range): BP systolic 123–150; BP diastolic 72–91
[~2018-06-26 08:27] MED LIST changes: +ALTEPLASE RECOMB 2 MG VIAL IVP PRN; +DEXTROSE 5%(*) 100 ML BAG 100 ML IVPB PRN; +HEPARIN FLSH (PORT) 500 UN/5ML IVP PRN; +NS(*) 0.9% 100 ML BAG 100 ML IVPB PRN; +NS(*) 0.9% 500 ML BAG 500 ML IV PRN; +WATER FOR INJ,STERILE 20 ML IVP PRN; +ZOLEDRONIC ACID 4 MG/5 ML VIAL 4 MG in NS(*) 0.9% 100 ML BAG 100 ML IVPB ONE
[2018-06-26] MEDS: LIDOCAINE/SOD BICARB 8.4% SYR ID PRN (08:46)
[2018-06-26 08:53] LABS: PLATELET COUNT, AUTOMATED 178 K/uL (150-450)
[2018-06-26] MEDS ORDERED: MONTELUKAST SODIUM 10 MG TAB PO PRN (09:25)
[2018-06-26] MEDS ORDERED: ACETAMINOPHEN 325 MG TAB PO PRN (09:25)
[2018-06-26] MEDS ORDERED: FAMOTIDINE 10 MG/ML SDV IVP PRN (09:25)
[2018-06-26] MEDS ORDERED: DEXAMETHASONE IVPB PRN (09:25)
[2018-06-26] MEDS ORDERED: diphenhydrAMINE 25 MG CAP PO PRN (09:25)
[2018-06-26] MEDS ORDERED: NS 0.9% IVPB PRN (09:25)
[2018-06-26] MEDS ORDERED: NS 0.9% IVPB ONE (10:30)
[2018-06-26] MEDS ORDERED: DARATUMUMAB IVPB ONE (10:30)
[2018-07-18] MEDS ORDERED: ASPI-1471 PO (09:03)
== END 2018-07-17 ==
LOC: ONC 08:27
PROVIDERS: ATTEND Internal Medicine
DX: Z51.11 Encounter for antineoplastic chemotherapy (principal); C90.30 Solitary plasmacytoma not having achieved remission; C40.00 Malignant neoplasm of scapula and long bones of unspecified upper limb; D80.1 Nonfamilial hypogammaglobulinemia; Z87.891 Personal history of nicotine dependence; R53.83 Other fatigue; E87.6 Hypokalemia; M79.671 Pain in right foot; Z23 Encounter for immunization; Z94.84 Stem cells transplant status
CPT/HCPCS: 36415; 82232; 82784; 83615; 83735; 83883; 84100; 84550; 85025; 86334; 96365; 96367; 96375; 96413; 96415; 99212; J1100; J3489; J7030; J7040; J7050; J9145; Q0163; S0028; 82040; 82247; 82310; 82374; 82435; 82565; 82947; 84075; 84132; 84155; 84295; 84450; 84460; 84520

== ENCOUNTER → 2018-07-20 | Outpatient (CLI) | payer BC ==
[~2018-07-20] MED LIST changes: -ALTEPLASE RECOMB 2 MG VIAL IVP PRN; -DEXTROSE 5%(*) 100 ML BAG 100 ML IVPB PRN; -HEPARIN FLSH (PORT) 500 UN/5ML IVP PRN; -NS(*) 0.9% 100 ML BAG 100 ML IVPB PRN; -NS(*) 0.9% 500 ML BAG 500 ML IV PRN; -WATER FOR INJ,STERILE 20 ML IVP PRN; -ZOLEDRONIC ACID 4 MG/5 ML VIAL 4 MG in NS(*) 0.9% 100 ML BAG 100 ML IVPB ONE
--- NOTE | 2018-07-20 13:15 | EKG ---
FACILITY: [facility] PATIENT NAME: KASSANDRA BOYCE : [id number] MR: [id number] V: [id number] EXAM DATE: ORDERING PHYSICIAN: RAJI FRAZIER TECHNOLOGIST: THOMAS Collado Reason : TACHYCRDIA Blood Pressure : / mmHG Vent. Rate : 079 BPM Atrial Rate : 079 BPM P-R Int : 212 ms QRS Dur : 094 ms QT Int : 388 ms P-R-T Axes : 069 061 067 degrees QTc Int : 444 ms Sinus rhythm with 1st degree AV block Possible Left atrial enlargement No ST-T abnormalities Relatively unchanged from previous Confirmed by SCHUYLER FRASER ([id number]) on 07/20/2018 7:51:55 PM Referred By: FREDDIE Confirmed By:SCHUYLER FRASER
--- NOTE | 2018-07-23 11:22 | RT HOLTER TEST ---
FACILITY: [facility] PATIENT NAME: KASSANDRA BOYCE : [id number] MR: [id number] V: [id number] EXAM DATE: ORDERING PHYSICIAN: RAJI FRAZIER TECHNOLOGIST: YENIFER Hook-up date: 2018-07-20 13:10:00 Duration: 44:46:00 Test Indications: palpitations, tachycardia Medications: [id number] QRS complexes 638 Ventricular ectopics which represent <1 % of total QRS comp. 11 Supraventricular ectopics which represent <1 % of total QRS comp. * Paced QRS complexes which represent % of total QRS comp. VENTRICULAR ECTOPY 628 Isolated 0 Bigeminal Cycles 5 Couplets 0 Runs 0 Beats in Runs * Beats LONGEST at * BPM at :: -- * Beats FASTEST at * BPM at :: -- SUPRAVENTRICULAR ECTOPY 11 Isolated 0 Couplets 0 Runs 0 Beats in Runs * Beats LONGEST at * BPM at :: -- * Beats FASTEST at * BPM at :: -- HEART RATES 58 MIN at 17:43:22 2018-07-21 94 AVG 149 MAX at 06:35:01 2018-07-21 LONGEST RR 1.552 secs at 18:47:20 2018-07-21 S-T LEVELS Channel 1 -12.800 mm MIN at 13:10:00 2018-07-20 -12.800 mm MAX at 13:10:00 2018-07-20 Channel 2 -12.800 mm MIN at 13:10:00 2018-07-20 -12.800 mm MAX at 13:10:00 2018-07-20 Channel 3 -12.800 mm MIN at 13:10:00 2018-07-20 -12.800 mm MAX at 13:10:00 2018-07-20 Sinus rhythm Premature ventricular complexes Premature supraventricular complexes Confirmed by JANET VALENZUELA ([id number]) on 07/23/2018 11:21:29 AM Referred By: Overread By: JANET VALENZUELA
== END ==
LOC: RESP 12:48
PROVIDERS: ATTEND Family Medicine
DX: R00.0 Tachycardia, unspecified (principal); R00.2 Palpitations
CPT/HCPCS: 93005; 93225

== ENCOUNTER → 2018-08-22 | Outpatient (CLI) | payer BC | LOC: US 01:01 | PROVIDERS: ATTEND Internal Medicine | DX: C90.30 Solitary plasmacytoma not having achieved remission (principal); C40.00 Malignant neoplasm of scapula and long bones of unspecified upper limb; R00.0 Tachycardia, unspecified | CPT/HCPCS: 93306 ==

== ENCOUNTER → 2018-08-27 | Outpatient (CLI) | payer BC ==
--- NOTE | 2018-08-27 15:35 | RADIOLOGY IMAGING REPORT ---
[facility] PATIENT NAME: Cristobal Mayers : 1955 MR: [id number] V: [id number] EXAM DATE: ORDERING PHYSICIAN: RAJI FRAZIER TECHNOLOGIST: Location: [facility] Patient: Cristobal Mayers : 1955 Visit/Account:[id number] Date of Sevice: 08/27/2018 Study: Frontal and lateral views of the chest Indication: Tachycardia, hyperparathyroidism, cough Comparison study: December 29, 2017 Findings: PA and lateral views of the chest demonstrate no evidence of acute infiltrate. There is no evidence of pleural effusion. There is no evidence of pneumothorax. The mediastinal, cardiac, and diaphragmatic contours are unremarkable. The visualized bony structures are unremarkable. IMPRESSION: Unremarkable chest. Report Dictated By: Brett Grimm at 08/27/2018 3:31 PM Report E-Signed By: Brett Grimm at 08/27/2018 3:31 PM WSN:[id number]
== END ==
LOC: LAB 13:27
PROVIDERS: ATTEND Family Medicine
DX: R05 Cough (principal); R00.0 Tachycardia, unspecified; E05.90 Thyrotoxicosis, unspecified without thyrotoxic crisis or storm; E04.1 Nontoxic single thyroid nodule
CPT/HCPCS: 36415; 71046; 84439; 84481; 86376; 86800

== ENCOUNTER → 2018-08-31 | Outpatient (CLI) | payer BC ==
--- NOTE | 2018-08-31 15:13 | RADIOLOGY IMAGING REPORT ---
FACILITY: PATIENT NAME: Cristobal Mayers : 1955 MR: [id number] V: [id number] EXAM DATE: ORDERING PHYSICIAN: RAJI FRAZIER TECHNOLOGIST: Location: [facility] Patient: Cristobal Mayers : 1955 Visit/Account:[id number] Date of Sevice: 08/31/2018 THYROID HISTORY: Thyroid nodule, hyperthyroidism COMPARISON: September 14, 2017 FINDINGS: SIZE: Normal. Right lobe: 5 x 1.4 x 1.5 cm Left lobe: 4.5 x 1.2 x 1.4 cm Isthmus: 3 mm PARENCHYMA: Homogeneous. NODULES: Right lobe: * None discrete. Left lobe: * In the mid left lobe there is a 7.6 mm well-circumscribed ovoid isoechoic nodule that appears rela tively unchanged in size when compared to the prior study Isthmus: * None discrete. VASCULARITY: Within normal limits. ADDITIONAL FINDINGS: None. IMPRESSION: There is a stable 7.6 mm isoechoic nodule in the mid left lobe REFERENCE: 2015 [place] [employer] Management Guidelines for Adult Patients with Thyroid Nodules and D ifferentiated Thyroid Cancer: The [place] [employer] Guidelines Task Force on Thyroid Nodul es and Differentiated Thyroid Cancer. SONOGRAPHIC PATTERNS: * Benign: Purely cystic nodules (no solid component); estimated risk of malignancy <1 percent; no bi opsy recommended. * Very Low Suspicion: Spongiform or partially cystic nodules without any of the sonographic features described in low, intermediate, or high suspicion patterns; estimated risk of malignancy <3 percent; consider FNA at > 2 cm (Observation without FNA is also a reasonable option). * Low Suspicion: Isoechoic or hyperechoic solid nodule, or partially cystic nodule with eccentric so lid areas, without microcalcification, irregular margin or ETE (extra-thyroidal extension), or taller than wide shape; estimated risk of malignancy 5-10 percent; recommend FNA at >1.5 cm. * Intermediate Suspicion: Hypoechoic solid nodule with smooth margins without microcalcifications, E TE (extra-thyroidal extension), or taller than wide shape; estimated risk of malignancy 10-20 percent ; recommend FNA at > 1 cm. * High Suspicion: Solid hypoechoic nodule or solid hypoechoic component of a partially cystic nodule with one or more of the following features: irregular margins (infiltrative, microlobulated), microc alcifications, taller than wide shape, rim calcifications with small extrusive soft tissue component, evidence of ETE (extra-thyroidal extension); estimated risk of malignancy >70-90 percent; recommend FNA at > 1 cm. NOTES: * Although a sonographically suspicious subcentimeter thyroid nodule without evidence of extrathyroi brittney extension or sonographically suspicious lymph nodes may be observed with close sonographic follow -up rather than pursuing immediate FNA, patient age and preference may modify decision-making. A > 50% interval increase in nodule volume and/or development of new suspicious sonographic features are felt to be a valid reasons for potential re-aspiration of a nodule previously shown to have benig n FNA cytology. Report Dictated By: Aiyana Oshea MD at 08/31/2018 3:07 PM Report E-Signed By: Aiyana Oshea MD at 08/31/2018 3:09 PM LETICIAN:[email or web address]
== END ==
LOC: US 00:48
PROVIDERS: ATTEND Family Medicine
DX: E04.1 Nontoxic single thyroid nodule (principal)
CPT/HCPCS: 76536

== ENCOUNTER 2018-10-08 09:22 | Outpatient (RCR) | payer BC ==
[2018-07-18 08:58] VITALS: BP 132/78
--- NOTE | 2018-07-18 13:32 | ONCOLOGY FOLLOW UP NOTE ---
EVENT DATE: July 18, 2018 CHIEF COMPLAINT Followup for multiple myeloma. HISTORY OF PRESENT ILLNESS Patient is a 62-year-old female who is seen today in followup after receiving her first cycle of maintenance daratumumab. She had a slight reaction but drug was re-started without issue. She describes some mild arthralgias associated with both the Zometa and the daratumumab. She was fatigued for several days but feels this is improving. She saw Dr. Mark yesterday. Tachycardia was noted and Dr. Mark is considering a Holter monitor. She has also scheduled Cristobal for a bone density. She otherwise feels well and is grateful that she tolerated her first infusion without issue. 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 This led to an x-ray revealing a solitary lytic lesion in the distal left humerus. Biopsy was done in [place] and was treated with radiation. She subsequently underwent a PET/CT in early 2016, showing no evidence of metastatic disease at the time. Her light chains increased up to 45, and she was subsequently discharged with relapse. She had 20% plasma cells in the bone marrow, and initiated therapy with VRd. There were five areas concerning for relapse in a PET scan in the fall of 2016. She has predominant bone disease with no other major CRAB symptoms. We started Zometa monthly given her bone prominent disease, and she has had two doses thus far. We are now able to switch to every three months. She had greater than a partial response after two cycles. Slow dual-refractory resistant disease concluded in August 2017. Transitioned to daratumumab, pomalidomide, dexamethasone. Underwent autologous stem cell transplant on February 01, 2018. Began maintenance daratumumab on June 26, 2018. PAST MEDICAL HISTORY 1. Multiple myeloma. 2. Status post left humerus ORIF. 3. Status post hysterectomy. 4. Status post back surgery. SOCIAL HISTORY Patient is and has one daughter. Former smoker with a 20 pack-year history of smoking, quitting 20 years ago. Occasional alcohol use. FAMILY HISTORY Remarkable for a stroke in her brother, but no cancers in the family. MEDICATIONS 1. Acyclovir 400 mg daily. 2. Calcium/vitamin D. 3. Docusate sodium. 4. Multivitamin. 5. Zolpidem 5 mg p.r.n. ALLERGIES 1. BACITRACIN. 2. NEOMYCIN. 3. POLYMYXIN B. REVIEW OF SYSTEMS A 12-point review of systems is performed and is negative except as stated above. PHYSICAL EXAMINATION VITAL SIGNS: Weight 93.6 kg, BP 132/78, P 100, R 16, temperature 97.2, O2 sat 97%. GENERAL: Patient is a well-developed, well-nourished female in no acute distress. HEAD: Normocephalic, atraumatic. EYES: Sclerae anicteric. MOUTH: Moist mucous membranes. No lesions noted. LUNGS: Clear bilaterally. CARDIOVASCULAR: Heart rate regular, 100 per minute, without murmur, S3 or S4. EXTREMITIES: No edema. NEUROLOGIC: Nonfocal. LABORATORY No lab today. IMPRESSION AND PLAN The patient is a 62-year-old female diagnosed with multiple myeloma stage IIA. Please see oncology history. Underwent autologous stem cell transplant on February 01, 2018. Began maintenance daratumumab on June 26, 2018. 1. Multiple myeloma. Patient tolerated her first cycle of daratumumab with only a small infusion reaction. This was re-started without issue. She will be seen on July 24, 2018 for cycle #2 of treatment. 2. Arthralgias. Mild. She associated these with both Zometa and daratumumab. These have now resolved. 3. Bone health. Dr. Mark has scheduled a bone density. She will continue Zometa every three months, next due at the end of August 2018. 4. Weight gain. Patient has been concerned as she has been gaining weight. She will no longer be on steroids except for pre-treatment. She is swimming several days a week, which is helpful. We briefly discussed diet issues. 5. Tachycardia. Dr. Mark is considering Holter monitor. Patient will also monitor at home. She states she is well hydrated. 6. Follow up on July 24, 2018 for cycle #2 of treatment. 7. Follow up with Dr. Piedra on August 13, 2018 for continued care. MTDD
[2018-07-24] MEDS: LIDOCAINE/SOD BICARB 8.4% SYR ID PRN (08:44)
[2018-07-24 08:45] VITALS: BP 133/95
[2018-07-24 08:49] LABS: PLATELET COUNT, AUTOMATED 211 K/uL (150-450)
[2018-07-24] MEDS: diphenhydrAMINE 25 MG CAP PO PRN (09:26)
[2018-07-24] MEDS: ACETAMINOPHEN 325 MG TAB PO PRN (09:26)
[2018-07-24] MEDS: MONTELUKAST SODIUM 10 MG TAB PO PRN (09:26)
[2018-07-24] MEDS: FAMOTIDINE 10 MG/ML SDV IVP PRN (09:27)
[2018-07-24 10:17] VITALS: BP 148/85
[2018-07-24 10:56] VITALS: BP 140/85
[2018-07-24 11:31] VITALS: BP 135/93
[2018-07-24 13:57] VITALS: BP 133/92
--- NOTE | 2018-07-24 21:52 | ONCOLOGY FOLLOW UP NOTE ---
EVENT DATE: July 24, 2018 CHIEF COMPLAINT Followup for multiple myeloma. HISTORY OF PRESENT ILLNESS Patient is a 62-year-old woman who was seen today for followup and is due for her second cycle of maintenance daratumumab today. She has completed one cycle thus far. She did have a slight hypersensitivity reaction with her first cycle, but was able to successfully reinitiate treatment without any further issues. She is also on Zometa, and has received a couple of doses in the past, and is now on Zometa once every three months. She is not due for this again until the end of August 2018. She did report some mild arthralgias following infusion with both Zometa and daratumumab. She also reported some fatigue for several days following infusion, but reports that this then improved. She has had some tachycardia and just recently completed a 24-hour Holter monitor with Dr. Mark. She is monitoring the patient. The patient is currently awaiting results from the Holter monitor and had a call out to her physician. She denies any other significant pain. No recent infections or fevers. The patient is somewhat concerned about her tachycardia, but tells me that she is asymptomatic and doesn't really notice when this occurs. She reports that she is eating and drinking well. 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 This led to an x-ray revealing a solitary lytic lesion in the distal left humerus. Biopsy was done in [place] and was treated with radiation. She subsequently underwent a PET/CT in early 2016, showing no evidence of metastatic disease at the time. Her light chains increased up to 45, and she was subsequently discharged with relapse. She had 20% plasma cells in the bone marrow and initiated therapy with VRd. There were five areas concerning for relapse on a PET scan in the fall of 2016. She has predominant bone disease with no other major CRAB symptoms. We started Zometa monthly given her bone- prominent disease, and she has had two doses thus far. We are now able to switch to every three months. She had greater than a partial response after two cycles. Slow dual-refractory resistant disease concluded in August 2017. Transitioned to daratumumab, pomalidomide, dexamethasone. Underwent autologous stem cell transplant on February 01, 2018. Began maintenance daratumumab on June 26, 2018. PAST MEDICAL HISTORY 1. Multiple myeloma. 2. Status post left humerus ORIF. 3. Status post hysterectomy. 4. Status post back surgery. SOCIAL HISTORY Patient is and has one daughter. Former smoker with a 20 pack-year history of smoking, quitting 20 years ago. Occasional alcohol use. FAMILY HISTORY Remarkable for a stroke in her brother, but no cancers in the family. MEDICATIONS 1. Acyclovir 400 mg daily. 2. Calcium/vitamin D. 3. Docusate sodium. 4. Multivitamin. 5. Zolpidem 5 mg p.r.n. ALLERGIES 1. BACITRACIN. 2. NEOMYCIN. 3. POLYMYXIN B. REVIEW OF SYSTEMS A 12-point review of systems is performed and is negative except as stated above. Patient is in good spirits today. She denies any significant pain. PHYSICAL EXAMINATION VITAL SIGNS: Last weight 93.62 kg, obtained on 07/18/18. Vital signs today: Temperature 97.8 degrees Fahrenheit, BP 135/93, P 78, R 18, oxygen saturation 96% room air. GENERAL: Patient is a well-developed, [id number]-ndsotoeyr female who appears to be in no acute distress. HEAD: Normocephalic, atraumatic. EYES: Sclerae anicteric. MOUTH: Moist mucous membranes. No ulcerations noted. LUNGS: Clear breath sounds to auscultation bilaterally. CARDIOVASCULAR: Heart rate 78 today, with regular rhythm. No murmurs or gallops. Peripheral examination reveals apparently normal peripheral blood flow. EXTREMITIES: There is no visible edema. No clubbing or cyanosis. NEUROLOGIC: Nonfocal. The patient is awake, alert, and oriented times three. PSYCHIATRIC: Patient's mood and affect are appropriate and within normal limits. LABORATORY CBC today: WBC 6.6, ANC 3.9, hemoglobin 12.9, hematocrit 38.1%, platelets 211,000. CMP today: Sodium normal at 137, potassium normal at 4.2, serum creatinine 0.60, normal. Uric acid 3.9, normal. LDH 604, within normal limits. SPEP still pending. IMPRESSION AND PLAN This is a pleasant 62-year-old woman diagnosed with multiple myeloma stage IIA. Please see Oncology History. She underwent autologous stem cell transplant on February 01, 2018. She began maintenance daratumumab on June 26, 2018. She has received one cycle thus far with daratumumab and is initiating her second cycle today. She is also on Zometa, now being given every three months. She did have a mild hypersensitivity reaction with her first cycle, but was able to successfully complete treatment. She has reported some arthralgias after both Zometa and daratumumab, and this can certainly be related to both drugs. We discussed this today. 1. Multiple myeloma: Patient will be receiving her second cycle of daratumumab only today. She is not due for Zometa until end of August 2018. 2. Arthralgias: Mild. She associated these with both Zometa and daratumumab. These have now largely resolved with the exception of occasional "normal aches and pains", per patient. She uses occasional Tylenol p.r.n. She is going to alert us if symptoms worsen or return after today's cycle. I did inform the patient that Zometa in particular after the first cycle can cause an inflammatory response or reaction such as an acute phase reaction which can include arthralgias, myalgias, and even a low-grade temperature, flu-like symptoms. This typically can last anywhere from 24 to 72 hours and is usually seen after the first dose, though in some patients may be noticeable even after the first dose. Again, she is aware to notify us if this is unmanageable. 3. Bone health: She will continue to follow with Dr. Mark regarding her bone density. 4. Weight gain: Reports that this is still bothersome for her, especially after she lost nearly 20 pounds after her transplant. She will no longer be on steroids except for pre-treatment and is aware. She is swimming several days a week, which is helpful, and I encouraged her to keep up with her exercise. We also briefly discussed diet issues. 5. Tachycardia: She has followed up with Dr. Mark recently and had a Holter monitor done. She has a call out regarding results. During our visit, I had our infusion nurse call Dr. Mark's office and leave a message regarding followup for results. Patient reports that she does not have any symptomatology when tachycardic and otherwise feels well. She also remains diligent about her oral intake. 6. Patient will follow up in clinic with medical oncologist and will see Dr. Piedra as scheduled on 08/13/2018 for continued care. 7. We will continue to monitor appropriate labs with each cycle. MTDD
[2018-08-13 09:23] VITALS: BP 130/75
--- NOTE | 2018-08-14 10:24 | SCHUSTER ONCOLOGY NOTE ---
EVENT DATE: August 13, 2018 CHIEF COMPLAINT/REASON FOR VISIT Ms. Mayers is a very pleasant 62-year old lady here for followup of her multiple myeloma. She has received two cycles of maintenance daratumumab since her transplant. We plan to continue this for quite some time and are hopeful that we can reach minimal residual disease negativity with this regimen. Her labs look outstanding. She has no evidence of an M-spike. Her immunoglobulins and light chains are all normal or low. She has mild side effects with therapy including fatigue, which is also related to the transplant. She is about to restart her Zometa, which is now scheduled for a date in August. She is not taking dexamethasone on her off weeks but only during the days of her daratumumab, which is reasonable and appropriate. Her biggest concern is sinus tachycardia. She had a near 48-hour Holter monitor which showed sinus rhythm with rare events. She had an echo prior to transplant but I believe we need to repeat this as I would not expect the post chemotherapy tachycardia to continue at this time. She is not having any symptoms from this thankfully. No shortness of breath, dizziness, etc. She is eating well. Overall, she is happy with how she is feeling. 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 This led to an x-ray revealing a solitary lytic lesion in the distal left humerus. Biopsy was done in [place] and was treated with radiation. She subsequently underwent a PET/CT in early 2016, showing no evidence of metastatic disease at the time. Her light chains increased up to 45, and she was subsequently discharged with relapse. She had 20% plasma cells in the bone marrow and initiated therapy with VRd. There were five areas concerning for relapse on a PET scan in the fall of 2016. She has predominant bone disease with no other major CRAB symptoms. We started Zometa monthly given her bone- prominent disease, and she has had two doses thus far. We are now able to switch to every three months. She had greater than a partial response after two cycles. Slow dual-refractory resistant disease concluded in August 2017. Transitioned to daratumumab, pomalidomide, dexamethasone. Underwent autologous stem cell transplant on February 01, 2018. Began maintenance daratumumab on June 26, 2018. PAST MEDICAL HISTORY 1. Multiple myeloma. 2. Status post left humerus ORIF. 3. Status post hysterectomy. 4. Status post back surgery. SOCIAL HISTORY Patient is and has one daughter. Former smoker with a 20 pack-year history of smoking, quitting 20 years ago. Occasional alcohol use. FAMILY HISTORY Remarkable for a stroke in her brother, but no cancers in the family. MEDICATIONS 1. Acyclovir 400 mg daily. 2. Calcium/vitamin D. 3. Docusate sodium. 4. Multivitamin. 5. Zolpidem 5 mg p.r.n. ALLERGIES 1. BACITRACIN. 2. NEOMYCIN. 3. POLYMYXIN B. REVIEW OF SYSTEMS CONSTITUTIONAL: No fevers, chills, weight change. HEENT: No headache or vision changes. CARDIOVASCULAR: No chest pain, dyspnea on exertion, or edema. Positive tachycardia. The patient is concerned that intermittent headaches may be related to the tachycardia. RESPIRATORY: No shortness of breath, wheeze, cough. GASTROINTESTINAL: No nausea or vomiting. GENITOURINARY: No dysuria or hematuria. MUSCULOSKELETAL: No weakness or joint pain. PSYCHIATRIC: No anxiety or depression. ENDOCRINE: No heat or cold intolerance. SKIN: No concerning rashes or lesions. The remainder of the 14-point review of systems is otherwise negative. PHYSICAL EXAMINATION VITAL SIGNS: Blood pressure 130/75, pulse 112. On repeat exam, I would estimate her pulse to be closer to 100 at the time of my exam but she was resting during that interval. Respiratory rate 16, temperature 97.4 Fahrenheit, oxygen saturation 97% on room air. Weight 94.8 kg, which is stable. Pain 0/10. Fatigue 4/10. GENERAL: Stable condition, resting comfortably in the chair. HEENT: Normocephalic, atraumatic. LYMPHATIC; No appreciable cervical, supraclavicular or axillary adenopathy. CARDIOVASCULAR: Regular rhythm. Positive tachycardia. No murmur. LUNGS: Clear to auscultation bilaterally. ABDOMEN: Soft, nontender, nondistended. EXTREMITIES: No clubbing, cyanosis or edema. NEUROLOGIC: No deficits. PSYCHIATRIC: Normal mood and affect. Remainder of physical exam is unremarkable. IMPRESSION/REPORT/PLAN Ms. Mayers is a very pleasant, 62-year-old female with multiple myeloma, stage IIA. She had autologous stem cell transplant on February 01, 2018. She began maintenance daratumumab on June 26, 2018. She continues Zometa every quarter. 1. Multiple myeloma. Continue daratumumab and Zometa. 2. Arthralgias, mild. 3. Bone health - She is going to be getting a DEXA scan coming up soon. 4. History of a thyroid abnormality. Repeat ultrasound ordered. 5. Preventative health. She is due for colonoscopy later this year. 6. Tachycardia. Her Holter monitor was unrevealing but I think she needs to get an echocardiogram and at least visit with cardiology. I am confident they will say this is due to chemotherapy and they do find any structural or major issues. However, given the persistent tachycardia, I think an evaluation should be done. We will continue to see her monthly. It is very likely we will plan for a PET scan and a bone marrow biopsy in January at the one year anniversary of her transplant. We will continue to share her care with Dr. Patel from [place]. I answered all of her many questions today. BILLING Return visit level 5. Total time 45 minutes, counseling time 25 minutes. IRIS
[2018-08-21 08:38] VITALS: BP 149/90
[2018-08-21 09:05] LABS: PLATELET COUNT, AUTOMATED 219 K/uL (150-450)
[2018-08-21] MEDS: LIDOCAINE/SOD BICARB 8.4% SYR ID PRN (09:41)
[2018-08-21] MEDS: diphenhydrAMINE 25 MG CAP PO PRN (09:42)
[2018-08-21] MEDS: MONTELUKAST SODIUM 10 MG TAB PO PRN (09:42)
[2018-08-21] MEDS: ACETAMINOPHEN 325 MG TAB PO PRN (09:42)
[2018-08-21] MEDS: FAMOTIDINE 10 MG/ML SDV IVP PRN (09:42)
[2018-08-21] MEDS: NS 0.9% IVPB PRN (09:53)
[2018-08-21] MEDS: DEXAMETHASONE SOD IVPB PRN (09:53)
[2018-08-21 10:30] VITALS: BP 128/79
[2018-08-21 10:48] VITALS: BP 141/92
[2018-08-21 11:04] VITALS: BP 131/84
[2018-08-21 11:20] VITALS: BP 132/81
[2018-08-21 13:42] VITALS: BP 134/82
[2018-09-12 08:47] VITALS: BP 124/74
[2018-09-12] MEDS: NS(*) 0.9% 100 ML BAG 100 ML IVPB PRN (08:52)
[2018-09-12] MEDS: LIDOCAINE/SOD BICARB 8.4% SYR ID PRN (08:52)
[2018-09-12 09:57] VITALS: BP 120/67
[2018-09-25 08:52] VITALS: BP 143/79
[2018-09-25 09:12] LABS: PLATELET COUNT, AUTOMATED 223 K/uL (150-450)
[2018-09-25] MEDS: NS(*) 0.9% 100 ML BAG 100 ML IVPB PRN (09:29)
[2018-09-25] MEDS: LIDOCAINE/SOD BICARB 8.4% SYR ID PRN (09:29)
[2018-09-25] MEDS: diphenhydrAMINE 25 MG CAP PO PRN (09:59)
[2018-09-25] MEDS: ACETAMINOPHEN 325 MG TAB PO PRN (09:59)
[2018-09-25] MEDS: MONTELUKAST SODIUM 10 MG TAB PO PRN (10:00)
[2018-09-25] MEDS: FAMOTIDINE 10 MG/ML SDV IVP PRN (10:00)
[2018-09-25] MEDS: DEXAMETHASONE SOD IVPB PRN (10:15)
[2018-09-25] MEDS: NS 0.9% IVPB PRN (10:15)
[2018-09-25 14:35] VITALS: BP 131/87
--- NOTE | 2018-09-25 19:18 | ONCOLOGY FOLLOW UP NOTE ---
EVENT DATE: September 25, 2018 CHIEF COMPLAINT Ms. Mayers is here today for ongoing followup for her multiple myeloma and treatment with daratumumab. INTERIM HISTORY Ms. Mayers is a very pleasant, 62-year-old woman with multiple myeloma. She received two cycles of maintenance daratumumab since her transplant, and we plan to continue this for some time. We are hopeful that we can reach minimal residual disease negativity with this regimen. Her labs have looked good. She has had no evidence of an M spike. Immunoglobulin and light chain levels have all been normal or low. She has had some mild side effects with treatment, which include some fatigue, which may also be related to transplant. She has reinitiated Zometa, which she receives every quarter. She received this last in August. She tells me that after each Zometa infusion, she experiences some mild increase in arthralgias and fatigue. This dissipates after a couple of days. She also notices some muscle soreness after each daratumumab infusion, but after a couple of days, this, too, resolves. Her biggest concern has been some ongoing sinus tachycardia, but workup has been done which has been normal. She is not symptomatic. She denies any new pain. She has not had any recent fevers or infections. She does not report any new pain. Her appetite and weight have been stable. 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 This led to an x-ray revealing a solitary lytic lesion in the distal left humerus. Biopsy was done in [place] and was treated with radiation. She subsequently underwent a PET/CT in early 2016, showing no evidence of metastatic disease at the time. Her light chains increased up to 45, and she was subsequently discharged with relapse. She had 20% plasma cells in the bone marrow and initiated therapy with VRd. There were five areas concerning for relapse on a PET scan in the fall of 2017. She has predominant bone disease with no other major CRAB symptoms. We started Zometa monthly given her bone- prominent disease, and she has had two doses thus far. We are now able to switch to every three months. She had greater than a partial response after two cycles. Slow dual-refractory resistant disease concluded in August 2017. Transitioned to daratumumab, pomalidomide, dexamethasone. Underwent autologous stem cell transplant on February 01, 2018. Began maintenance daratumumab on June 26, 2018. She has had some sinus tachycardia, but has had a 48-hour Holter monitor which showed normal sinus rhythm with rare events. Echo prior to transplant was done. She tells me that numerous other tests have been done to include chest x-ray and thyroid check. She is due for a DEXA scan in the near future. PAST MEDICAL HISTORY 1. Multiple myeloma. 2. Status post left humerus ORIF. 3. Status post hysterectomy. 4. Status post back surgery. SOCIAL HISTORY Patient is and has one daughter. Former smoker with a [id number] history of smoking, quitting 20 years ago. Occasional alcohol use. FAMILY HISTORY Remarkable for a stroke in her brother, but no cancers in the family. ALLERGIES 1. BACITRACIN. 2. NEOMYCIN. 3. POLYMYXIN B. MEDICATIONS 1. Acyclovir 400 mg daily. 2. Calcium/vitamin D. 3. Docusate sodium. 4. Multivitamin. 5. Zolpidem 5 mg p.r.n. REVIEW OF SYSTEMS CONSTITUTIONAL: Patient denies any recent fevers, chills, or night sweats. No recent infections. Appetite and weight are stable. HEENT: Patient denies any vision changes or headache. No tinnitus. No dysphagia or odynophagia. CARDIOVASCULAR: No chest pain, syncope, or presyncope. She has had tachycardia, which has been stable. RESPIRATORY: No shortness of breath, wheezes, cough, or pleuritic chest pain. GASTROINTESTINAL: No abdominal pain, nausea, vomiting, constipation, diarrhea, bright red blood per rectum, or melena. GENITOURINARY: No dysuria or hematuria. MUSCULOSKELETAL: No weakness or focal areas of pain. PSYCHIATRIC: She denies any severe anxiety, severe depression, suicidal or homicidal ideation. ENDOCRINE: No heat or cold intolerance. SKIN: No rash. No generalized pruritus. NEUROLOGIC: No recent headaches, though she has had headaches in the past. No complaints of paresthesias. The remainder of a 12-point review of systems is performed today and is otherwise negative. PHYSICAL EXAMINATION VITAL SIGNS: T 97.4, P 93, R 16, BP 143/79, oxygen saturation 100% room air. GENERAL: In general, this is a pleasant 62-year-old female, appears well hydrated, well nourished, and is in no acute distress. HEAD: Atraumatic, normocephalic. EYES: Sclerae anicteric. ENT, MOUTH: Moist mucous membranes. No mucositis. NECK: Supple. No lymphadenopathy. CARDIOVASCULAR: Mildly tachycardic with regular rhythm. No ectopy. LUNGS: Clear to auscultation bilaterally. ABDOMEN: Soft, nontender, nondistended. Bowel sounds positive x4. EXTREMITIES: No edema, clubbing, or cyanosis. NEUROLOGIC: Patient is awake, alert, oriented x3. PSYCHIATRIC: Mood and affect are appropriate. LABORATORY CBC today: WBC 5.5, ANC 3.0, hemoglobin 12.5, hematocrit 37.6%, platelets 223,000. CMP today: Completely normal. Myeloma labs to include SPEP, immunoglobulin levels, and serum free light chains are currently pending. IMPRESSION AND PLAN Ms. Mayers is a very pleasant 62-year-old female with multiple myeloma, stage IIA. She had autologous stem cell transplant on February 01, 2018. She began maintenance daratumumab on June 26, 2018. She continues Zometa every quarter. 1. Multiple myeloma: Patient will continue with daratumumab today. 2. Patient will continue with Zometa quarterly. She last received this on 09/12/18, and will be due again for this in late November 2018. 3. Arthralgias: Mild and unchanged. 4. Bone health: Patient is due for a DEXA scan, ordered by her general practitioner. She has not yet scheduled this, but will be doing this in the near future. 5. Preventative health: She is aware that she will be due for colonoscopy later this year. 6. History of thyroid abnormality: Thyroid ultrasound was done on 08/31/18, which revealed stable 7.6 mm nodule in the mid left lobe. This is compared to ultrasound on 09/14/17. Dr. Mark is managing. 7. Tachycardia: Continues, though patient is largely asymptomatic. She reports that she has been evaluated by Cardiology. At this point, we are fairly confident that this is likely due to chemotherapy, but again, Cardiology referral is warranted. 8. Patient will return to clinic for next cycle of daratumumab. 9. Patient is scheduled to follow up with Dr. Piedra on 10/08/18. [facility]AN[facility]
[~2018-10-08] VITALS: Ht 166.4 cm; Wt 98.1 kg
[~2018-10-08 09:22] MED LIST changes: +DARATUMUMAB IVPB ONE; +DEXAMETHASONE IVPB PRN; +DEXTROSE 5%(*) 100 ML BAG 100 ML IVPB PRN; +NS 0.9% IVPB PRN; +NS(*) 0.9% 500 ML BAG 500 ML IV PRN; +ZOLEDRONIC ACID 4 MG/5 ML VIAL 4 MG in NS(*) 0.9% 100 ML BAG 100 ML IVPB ONE; +[UNRECOGNIZED DRUG - OTHER] IVPB ONE
[2018-10-08 09:31] VITALS: BP 131/85
--- NOTE | 2018-10-09 10:43 | SCHUSTER ONCOLOGY NOTE ---
EVENT DATE: October 08, 2018 CHIEF COMPLAINT/REASON FOR VISIT Ms. Mayers is a pleasant 73-year old female with multiple myeloma, currently in remission on treatment with daratumumab maintenance after autologous stem cell transplant in January 2018. INTERIM HISTORY Ms. Mayers is doing quite well. She resumed maintenance daratumumab in June 2018. No new side effects with this other than weight gain. This is likely due to the dexamethasone and we plan to cut the dose in half today. Otherwise, she is doing quite well. She does note some muscle soreness with each dose but no spasm of significance. She will occasionally have some muscle spasms. She does have sinus tachycardia and workup with cardiology was unrevealing. This is likely related to transplant and chemotherapy. I encouraged exercise and weight loss as well. 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 This led to an x-ray revealing a solitary lytic lesion in the distal left humerus. Biopsy was done in [place] and was treated with radiation. She subsequently underwent a PET/CT in early 2016, showing no evidence of metastatic disease at the time. Her light chains increased up to 45, and she was subsequently discharged with relapse. She had 20% plasma cells in the bone marrow and initiated therapy with VRd. There were five areas concerning for relapse on a PET scan in the fall of 2016. She has predominant bone disease with no other major CRAB symptoms. We started Zometa monthly given her bone- prominent disease, and she has had two doses thus far. We are now able to switch to every three months. She had greater than a partial response after two cycles. Slow dual-refractory resistant disease concluded in August 2017. Transitioned to daratumumab, pomalidomide, dexamethasone. Underwent autologous stem cell transplant on February 01, 2018. Began maintenance daratumumab on June 26, 2018. She has had some sinus tachycardia, but has had a 48-hour Holter monitor which showed normal sinus rhythm with rare events. Echo prior to transplant was done. She tells me that numerous other tests have been done to include chest x-ray and thyroid check. She is due for a DEXA scan in the near future. PAST MEDICAL HISTORY 1. Multiple myeloma. 2. Status post left humerus ORIF. 3. Status post hysterectomy. 4. Status post back surgery. SOCIAL HISTORY Patient is and has one daughter. Former smoker with a [id number] history of smoking, quitting 20 years ago. Occasional alcohol use. FAMILY HISTORY Remarkable for a stroke in her brother, but no cancers in the family. ALLERGIES 1. BACITRACIN. 2. NEOMYCIN. 3. POLYMYXIN B. MEDICATIONS 1. Acyclovir 400 mg daily. 2. Calcium/vitamin D. 3. Docusate sodium. 4. Multivitamin. 5. Zolpidem 5 mg p.r.n. REVIEW OF SYSTEMS CONSTITUTIONAL: No fevers, chills. Positive weight gain. HEENT: No headache or vision changes. CARDIOVASCULAR: No chest pain, dyspnea on exertion or edema. RESPIRATORY: No shortness of breath, wheeze, cough. GASTROINTESTINAL: No nausea, vomiting, diarrhea or constipation. GENITOURINARY: No dysuria or hematuria. MUSCULOSKELETAL: No weakness or joint pain. PSYCHIATRIC: No anxiety or depression. ENDOCRINE: No heat or cold intolerance. SKIN: No concerning rashes or lesions. Overall, she is doing well. Remainder of the 14-point review of systems is otherwise negative. PHYSICAL EXAMINATION VITAL SIGNS: Blood pressure 131/85, pulse 106, respiratory rate 18, temperature 97 Fahrenheit, oxygen saturation 98% on room air. Weight 98.1 kg. Pain 0/10, fatigue 0/10. GENERAL: Stable condition, resting comfortably in the chair. HEENT: Normocephalic, atraumatic. CARDIOVASCULAR: Borderline tachycardia at the time of my exam. I would estimate her pulse to be around 90. She has resting sinus tachycardia. RESPIRATORY: No shortness of breath, wheeze or cough. Clear to auscultation bilaterally. LUNGS: Clear to auscultation bilaterally. ABDOMEN: Soft, nontender. EXTREMITIES: No clubbing, cyanosis or edema. SKIN: No concerning rashes or lesions. Remainder of physical exam is unremarkable. IMPRESSION/REPORT/PLAN Ms. Mayers is a pleasant, 62-year-old female with the followin. Multiple myeloma, stage IIA, status post autologous stem cell transplant on February 01, 2018. Reinitiated Zometa quarterly. Reinitiated maintenance daratumumab in June 2018 with a plan for indefinite treatment. Overall, doing well and will continue. We do recommend a bone marrow biopsy, skeletal imaging as well as MRD analysis of the bone marrow in [place] in approximately January. 2. Arthralgias, unchanged. 3. Tachycardia, sinus. Has followed with cardiology. 4. History of a thyroid nodule, followed by Dr. Mark. 5. Ready to proceed with her therapy. We will see her approximately monthly with our team. I answered all of her questions today. BILLING Return visit level 4. Total time 30 minutes, counseling time 20 minutes. IRIS
== END 2018-10-16 ==
LOC: ONC 09:22
PROVIDERS: ATTEND Internal Medicine
DX: Z51.11 Encounter for antineoplastic chemotherapy (principal); C90.30 Solitary plasmacytoma not having achieved remission; C40.00 Malignant neoplasm of scapula and long bones of unspecified upper limb; Z94.84 Stem cells transplant status; M25.50 Pain in unspecified joint; R00.0 Tachycardia, unspecified; Z79.899 Other long term (current) drug therapy; Z87.891 Personal history of nicotine dependence
CPT/HCPCS: 82232; 83615; 83735; 83883; 84100; 84550; 85025; 86334; 96365; 96375; 96413; 96415; 99212; J1100; J3489; J7040; J7050; J9145; Q0163; S0028; 82040; 82247; 82310; 82374; 82435; 82565; 82784; 82947; 84075; 84132; 84155; 84295; 84450; 84460; 84520

== ENCOUNTER → 2018-12-04 | Outpatient (CLI) | payer BC ==
[~2018-12-04] MED LIST changes: -DARATUMUMAB IVPB ONE; -DEXAMETHASONE IVPB PRN; -DEXTROSE 5%(*) 100 ML BAG 100 ML IVPB PRN; -NS 0.9% IVPB PRN; -NS(*) 0.9% 500 ML BAG 500 ML IV PRN; +TRIMETHOPRIM OD; -ZOLEDRONIC ACID 4 MG/5 ML VIAL 4 MG in NS(*) 0.9% 100 ML BAG 100 ML IVPB ONE; -[UNRECOGNIZED DRUG - OTHER] IVPB ONE
--- NOTE | 2018-12-04 14:36 | RADIOLOGY IMAGING REPORT ---
FACILITY: [facility] PATIENT NAME: Cristobal Mayers : 1955 MR: [id number] V: [id number] EXAM DATE: ORDERING PHYSICIAN: RAJI FRAZIER TECHNOLOGIST: Location: [facility] Patient: Cristobal Mayers : 1955 Visit/Account:[id number] Date of Sevice: 12/04/2018 DEXA Scan Clinical history: Osteopenia. Comparison: DEXA scan from . LUMBAR SPINE: The bone mineral density (BMD) measured from L1-L4 correlates with a Z-score -0.5 and a T-score of - 0.7 which is Normal as defined by the World Health Organization. The corresponding risk of fracture in the lumbar spine is increased 1-2 times compared with a young adult reference population. HIP: Bone mineral density (BMD) measured in the Left total hip region correlates with a Z-score -0.1 and a T-score of -0.4 which is Normal as defined by the World Health Organization. The corresponding ri sk of fracture in the hip is Not increased compared with a young adult reference population. The tota l hip value has decreased by 1.4 % since the prior study. More than 5% change is considered signific ant. Bone mineral density (BMD) measured in the Femoral Neck region measures 1.058 g/cm2. IMPRESSION: 1. Lumbar spine: Normal. 2. Left Hip: Normal. There has been No significant change in the bone mineral density of the total hip since the previous exam. 3. Femoral Neck: Bone Mineral Density is 1.058 g/cm2 The next DEXA scan of this patient should include the following sites: L1-L4 and the left hip. FRAX? WHO Fracture Risk Assessment Tool link: <http://www.shef.ac.uk/FRAX/tool.jsp?locationValue=9> PLEASE NOTE: 1) The World Health Organization defines low BMD as follows: T-score Normal > -1 Osteopenia < -1 and > -2.5 Osteoporosis < -2.5 without fractures Established osteoporosis < -2.5 with fractures 2) In general, you may wish to consider: Diagnosis Treatment Follow-up DEXA Normal BMD Prevention 2-3 years Osteopenia Prevention/therapy 1-2 years Osteoporosis Therapy Yearly 3) Fracture risk estimated from the T-score is more accurate for vertebral fractures (often spontane ous) than for hip fractures. Report Dictated By: Francisco Burgess MD at 12/04/2018 2:27 PM Report E-Signed By: Francisco Burgess MD at 12/04/2018 2:29 PM WSN:[id number]
--- NOTE | 2018-12-11 10:03 | RADIOLOGY IMAGING REPORT ---
FACILITY: [facility] - [place] PATIENT NAME: KASSANDRA BOYCE : [id number] MR: [id number]: [id number] EXAM DATE: [id number] ORDERING PHYSICIAN: RAJI FRAZIER TECHNOLOGIST: Khushbu Jimenes PROCEDURE: BILATERAL DIGITAL SCREENING MAMMOGRAM WITH CAD ASSISTED INTERPRETATION & 3D TOMOSYNTHESIS. REASON FOR STUDY: Screening. COMPARISON: [facility]ors. VIEWS OBTAINED: 2D & 3D full field CC & MLO projections. BREAST DENSITY: Scattered fibroglandular densities are present in both breasts. MAMMOGRAM FINDINGS: No masses or suspicious calcifications. IMPRESSION: BIRADS 1: Negative. DIAGNOSTIC CATEGORY 1--NEGATIVE. RECOMMENDATIONS: ROUTINE MAMMOGRAM AND CLINICAL EVALUATION IN 1YR. Dictated by: Rolan Youngblood M.D. on 12/05/2018 at 8:28 Transcribed by: LATOSHA on 12/05/2018 at 9:29 Approved by: Cynthia Lo M.D. on 12/11/2018 at 10:00 [facility]
== END ==
LOC: MAMO 00:56
PROVIDERS: ATTEND Family Medicine
DX: Z13.820 Encounter for screening for osteoporosis (principal); Z12.31 Encounter for screening mammogram for malignant neoplasm of breast
CPT/HCPCS: 77063; 77067; 77080